=== PATIENT | female | born 1965 | race African-American/Black ===

== ENCOUNTER 2018-06-08 12:22 | Inpatient (IN) ==
[2018-06-08] MEDS ORDERED: NS 1,000 ML IV ONE ×3 (12:40→16:51)
[2018-06-08 13:07] LABS: BE -23.6 mmoll (-3.0-3.0); BLOOD TYPE ARTERIAL; HCO3-(ACT) 6.5 mmoll (20.0-26.0); METHB 1.4 % (0.0-1.5); O2(CT) 21.5 mL/dL (15.0-23.0); PO2(98.6) 132 mmHg (60-100); SAMPLE BLOOD; SAO2 99.3 % (95.0-100.0); THB 15.8 g/dL (11.5-17.4)
[2018-06-08 13:11] LABS: ALLEN TEST YES; MODALITY ROOM AIR
[2018-06-08 13:12] LABS: pH(98.6) 7.08 (7.35-7.45)
[2018-06-08 13:13] LABS: PCO2(98.6) 14 mmHg (35-45)
--- NOTE | 2018-06-08 13:13 | Diag Imaging Result Doc PS360 ---
EXAM: CHEST-PORTABLE HISTORY: syncope TECHNIQUE: Chest single view COMPARISON: 09/02/2015 FINDINGS: The lungs are well expanded. The heart is not enlarged. The vessels are not distended. There are no infiltrates. No effusion identified. There is a granuloma in the mid right lung. IMPRESSION: Negative exam. Electronically signed by Pipo Sheehan 06/08/2018 1:10 PM
[2018-06-08] MEDS ORDERED: HUMULIN R (PARKWAY) IV ONE (13:21)
[2018-06-08 13:43] LABS: BASO# 0.03 X1000 (0.0-0.2); BASO% 0.3 % (0.0-0.8); HEMOGLOBIN 15.5 g/dL (12.0-16.0); IMM GRAN# 0.02 X1000 (0.0-0.04); IMM GRAN% 0.2 % (0.0-0.5); LYMPH# 1.43 X1000 (1.2-3.4); LYMPH% 14.5 % (20.5-51.1); MCH 32.2 PG (27-31); MCHC 33.7 g/dL (33-37); MCV 95.6 FL (81-99); MONO# 0.66 X1000 (0.11-0.59); MONO% 6.7 % (1.7-9.3); MPV 11.3 FL (7.4-10.4); NEUT# 7.75 X1000 (1.4-6.5); NEUT% 78.3 % (42.2-75.2); PLT 355 X1000 (130-400); RBC 4.81 XMIL (4.2-5.4); RDW 18.3 % (11.5-14.5); WBC 9.89 X1000 (4.8-10.8)
[2018-06-08 13:47] LABS: BILIRUBIN URINE NEGATIVE (NEGATIVE); BLOOD URINE TRACE (NEGATIVE); CLARITY CLEAR (CLEAR); COLOR YELLOW; KETONE URINE 3+(Large) mg/dL (NEGATIVE); LEUKOCYTES URINE NEGATIVE (NEGATIVE); NITRITE URINE NEGATIVE (NEGATIVE); PROTEIN URINE 1+(30 mg/dL) mg/dL (NEGATIVE); UROBILINOGEN URINE NORMAL
[2018-06-08 13:53] LABS: INFLUENZA A NEGATIVE (NEGATIVE); INFLUENZA B NEGATIVE (NEGATIVE)
[2018-06-08 14:15] LABS: ESTIMATED GFR 40
[2018-06-08 14:18] LABS: ACETONE SERUM SMALL (NEGATIVE)
[2018-06-08 14:20] LABS: AGAP 39; ALBUMIN 5.3 g/dL (3.5-5.0); ALKALINE PHOSPHATASE 105 U/L (32-104); BUN 23 mg/dL (8-22); CALCIUM 10.7 mg/dL (8.8-10.2); CHLORIDE 91 mmol/L (98-107); COSMO 304; CREATININE 1.4 mg/dL (0.5-0.9); GOT 10 U/L (10-30); GPT 12 U/L (10-36); SODIUM 136 mmol/L (136-145); TCO2 6 mmol/L (25-35); TOTAL PROTEIN 9.2 g/dL (6.3-8.3)
[2018-06-08 14:20] LABS: UR AMPHETAMINES QUAL NONE DETECTED (NONE DETECT); UR BARBITUATES QUAL NONE DETECTED (NONE DETECT); UR BENZODIAZEPIN QUAL NONE DETECTED (NONE DETECT); UR CANNABINOIDS QUAL NONE DETECTED (NONE DETECT); UR COCAINE QUAL NONE DETECTED (NONE DETECT); UR METHADONE QUAL NONE DETECTED (NONE DETECT); UR METHAMPHETAMINE QUAL NONE DETECTED (NONE DETECT); UR OPIATES QUAL NONE DETECTED (NONE DETECT); UR OXYCODONE QUAL NONE DETECTED (NONE DETECT); UR PCP QUAL NONE DETECTED (NONE DETECT); UR PROPOXYPHENE QUAL NONE DETECTED (NONE DETECT); UR TCA QUAL NONE DETECTED (NONE DETECT)
[2018-06-08 14:22] LABS: GLUCOSE 600 mg/dL (70-104); POTASSIUM 6.2 mmol/L (3.5-5.1)
[2018-06-08 14:24] LABS: URINE BACTERIA 1+ /HFP; URINE CAST NONE SEEN /LPF; URINE CRYSTAL NONE SEEN /HPF; URINE EPITHELIAL CELLS <10 /HPF (<10); URINE SOURCE CATH; URINE YEAST NONE SEEN /HPF
[2018-06-08] MEDS ORDERED: HUMULIN R 100 UNIT in NS 99 ML IV ONE (14:45)
[2018-06-08] MEDS ORDERED: NS 1,000 ML ONE (14:58)
[2018-06-08] MEDS ORDERED: MORPHINE IV ONE (14:58)
[2018-06-08] MEDS ORDERED: ZOFRAN IV ONE (14:58)
[2018-06-08] MEDS ORDERED: MORPHINE IV PRN (16:51)
[2018-06-08] MEDS ORDERED: ZOFRAN IV PRN (16:51)
[2018-06-08] MEDS ORDERED: MAGNESIUM SULFATE 2 GM/S.W.I. 2 GM/50 ML IVPB IV PRN (17:08)
[2018-06-08] MEDS ORDERED: HUMULIN R 100 UNIT in NS 99 ML IV SCH (17:08)
[2018-06-08] MEDS ORDERED: POTASSIUM CHLORIDE 10% LIQUID PO PRN (17:08)
[2018-06-08] MEDS ORDERED: D50W SYRINGE IV PRN (17:08)
[2018-06-08] MEDS ORDERED: POTASSIUM CHLORIDE 20% LIQUID PO PRN (17:08)
[2018-06-08] MEDS ORDERED: POTASSIUM CHLORIDE 40 MEQ/SWI 40 MEQ/100 ML IVPB IV PRN (17:08)
[2018-06-08] MEDS ORDERED: SODIUM PHOSPHATE 30 MMOL in D5W 250 ML IV PRN (17:08)
[2018-06-08] MEDS: NS 1,000 ML IV SCH ×2 (17:23→23:37)
[2018-06-08 18:11] LABS: CALCIUM 9.2 mg/dL (8.8-10.2); CREATININE 1.1 mg/dL (0.5-0.9); PHOSPHORUS 1.9 mg/dL (2.7-4.5); POTASSIUM 4.3 mmol/L (3.5-5.1)
[2018-06-08] MEDS: POTASSIUM CHLORIDE 20 MEQ/SWI 20 MEQ/100 ML IVPB IV PRN ×2 (18:22→23:37)
--- NOTE | 2018-06-08 19:36 | HISTORY AND PHYSICAL ---
CHIEF COMPLAINT: Feeling weak all over, with lethargy. HISTORY OF PRESENT ILLNESS: This is a 52-year-old female with a history of diabetes mellitus, asthma and questionable hypothyroid. She presented to the emergency room complaining of generalized weakness, lethargy and she did have a syncopal episode while in triage. She states that she is a type 1 diabetic. She states she takes her insulin as prescribed, although she has not monitored her glucose in quite some time as she has not had any monitoring strips. She was found to have a blood sugar of 600, with a CO2 of 6 and an anion gap of 39. She was acetone positive with a pH of 7.08 consistent with DKA and she is being admitted for such. PAST MEDICAL HISTORY: 1. Type 1 diabetes mellitus. 2. Questionable hypothyroid. 3. Asthma. 4. Back pain. PAST SURGICAL HISTORY: Appendectomy and hysterectomy. SOCIAL HISTORY: She denies alcohol, tobacco or illicit drug use. ALLERGIES: Rocephin which causes shortness of breath and aspirin which causes nausea. HOME MEDICATIONS: A list will be obtained by the nursing staff and once reviewed will restart as appropriate. REVIEW OF SYSTEMS: Discussed with patient with pertinent positives stated in the HPI. She denied any dizziness, any chest pain or palpitations, shortness of breath, cough, any fevers or chills, any night sweats, PND, orthopnea, nausea, vomiting, diarrhea, constipation, black or bloody vomitus or stools, any hematuria, dysuria, frequency, urgency. PHYSICAL EXAMINATION: GENERAL: This is a 52-year-old female who is lying in the bed in ICU in no distress. VITAL SIGNS: Blood pressure is 127/80, with a heart rate of 99, respirations are 15 to 18, temperature was 97.7 oral, with room air sats 98-99%. EYES: Pupils are equal, round, react to light. EOMs are intact. Sclerae are anicteric. HEENT: Head is normocephalic, atraumatic. Mucous membranes are moist. NECK: Supple, with trachea midline. CARDIOVASCULAR: Regular rate and rhythm. S1 and S2 appreciated. She has no lower extremity edema, with peripheral pulses palpable x 4 extremities. PULMONARY: Breath sounds are clear with no increased work of breathing noted. CHEST: Rises and falls symmetric with respiration. Chest wall is nontender to palpation. GASTROINTESTINAL: Abdomen is soft, nontender, nondistended. Bowel sounds in all 4 quadrants. GENITOURINARY: She has no CVAT nor suprapubic tenderness. NEUROLOGIC: She is alert and oriented x3. SKIN: Warm and dry. LABS: WBC is 9.8, with hemoglobin 15.5, hematocrit 46 and platelets of 355,000. ABGs: PH is 7.08 with a pCO2 of 14, PO2 of 132 and a bicarb of 6.5. This Is on room air. Chemistries: Sodium 136, potassium 6.2, CO2 is 6, anion gap is 39, BUN 23, creatinine 1.4, with a blood sugar of 600. Urine drug screen reveals none detected. Acetone level is small. Influenza A and B are negative. Urinalysis reveals 3+ ketones with 3+ glucose. Chest x-ray revealed negative exam. Lungs are well expanded. Heart is not enlarged. Vessels are not distended. There are no infiltrates. No effusion identified. There is a granuloma in the mid right lung. Microbiology: Blood cultures x 2 are pending. ASSESSMENT AND PLAN: 1. Diabetic ketoacidosis. The patient has been admitted to ICU and placed on DKA protocol, which we will continue. We will draw stat labs now, see where the patient is at, as it has been a while since labs were drawn from the emergency room and we will continue under DKA protocol with q.4 hour labs. 2. History of asthma with no exacerbation. 3. Thyroid trouble, possibly hypothyroid. We will check a TSH. 4. For DVT prophylaxis will use SCDs and for GI prophylaxis we will use Prilosec. 5. Since the patient has had no nausea or vomiting, we will start clear liquids, sips of clear liquids and we can advance as tolerated. Further treatments pending hospital course. Dictated by FLAVIA Muhammad for Terell Fierro MD This chart was documented by, FLAVIA Muhammad and accurately reflects the services performed, treatment plan and medical decisions as attested by the providers signature Terell Fierro MD. cc: FLAVIA Muhammad MD
[2018-06-08 22:38] LABS: BASO# 0.03 X1000 (0.0-0.2); BASO% 0.3 % (0.0-0.8); HEMATOCRIT 43.1 % (37.0-47.0); HEMOGLOBIN 14.4 g/dL (12.0-16.0); IMM GRAN# 0.02 X1000 (0.0-0.04); IMM GRAN% 0.2 % (0.0-0.5); LYMPH# 1.34 X1000 (1.2-3.4); LYMPH% 14.9 % (20.5-51.1); MCH 33.2 PG (27-31); MCHC 33.4 g/dL (33-37); MCV 99.3 FL (81-99); MONO# 0.78 X1000 (0.11-0.59); MONO% 8.7 % (1.7-9.3); MPV 9.9 FL (7.4-10.4); NEUT# 6.83 X1000 (1.4-6.5); NEUT% 75.9 % (42.2-75.2); PLT 257 X1000 (130-400); RBC 4.34 XMIL (4.2-5.4)
[2018-06-08 23:08] LABS: ALBUMIN 3.9 g/dL (3.5-5.0); CALCIUM 9.1 mg/dL (8.8-10.2); PHOSPHORUS 1.8 mg/dL (2.7-4.5); TOTAL BILIRUBIN 0.3 mg/dL (0.20-1.00); TOTAL PROTEIN 7.1 g/dL (6.3-8.3)
--- NOTE | 2018-06-08 23:45 | HISTORY AND PHYSICAL ---
ADDENDUM: The patient seen and examined by myself. Full note dictated and discussed with nurse practitioner. Patient presented to the hospital, was subsequently diagnosed with DKA. We will place her in the ICU on DKA protocol, and will follow. Please see full note. cc: Terell Fierro MD
[2018-06-09] MEDS: HUMALOG (PARKWAY) SUBQ SCH ×5 (02:25→21:28)
[2018-06-09] MEDS: NS 1,000 ML IV SCH ×3 (02:25→19:19)
[2018-06-09 02:30] LABS: CALCIUM 9.4 mg/dL (8.8-10.2); PHOSPHORUS 1.6 mg/dL (2.7-4.5); POTASSIUM 4.6 mmol/L (3.5-5.1)
[2018-06-09] MEDS: POTASSIUM CHLORIDE 20 MEQ/SWI 20 MEQ/100 ML IVPB IV PRN ×2 (02:30→07:25)
[2018-06-09] MEDS: D5 NS 1,000 ML IV SCH ×2 (02:30→11:00)
[2018-06-09 05:09] LABS: BE -13.6 mmoll (-3.0-3.0); BLOOD TYPE ARTERIAL; HCO3-(ACT) 14.3 mmoll (20.0-26.0); METHB 1.4 % (0.0-1.5); O2(CT) 16.9 mL/dL (15.0-23.0); PCO2(98.6) 33 mmHg (35-45); PO2(98.6) 99 mmHg (60-100); SAMPLE BLOOD; SAO2 99.6 % (95.0-100.0); THB 12.4 g/dL (11.5-17.4); pH(98.6) 7.21 (7.35-7.45)
[2018-06-09 05:11] LABS: ALLEN TEST NO; MODALITY ROOM AIR
[2018-06-09] MEDS: PRILOSEC PO SCH (06:53)
[2018-06-09 06:56] LABS: BASO# 0.02 X1000 (0.0-0.2); BASO% 0.2 % (0.0-0.8); HEMATOCRIT 36.9 % (37.0-47.0); HEMOGLOBIN 12.2 g/dL (12.0-16.0); IMM GRAN# 0.02 X1000 (0.0-0.04); IMM GRAN% 0.2 % (0.0-0.5); LYMPH# 1.65 X1000 (1.2-3.4); LYMPH% 15.8 % (20.5-51.1); MCH 31.9 PG (27-31); MCHC 33.1 g/dL (33-37); MCV 96.3 FL (81-99); MONO# 1.19 X1000 (0.11-0.59); MONO% 11.4 % (1.7-9.3); MPV 9.9 FL (7.4-10.4); NEUT# 7.56 X1000 (1.4-6.5); NEUT% 72.4 % (42.2-75.2); PLT 268 X1000 (130-400); RBC 3.83 XMIL (4.2-5.4); RDW 15.8 % (11.5-14.5); WBC 10.44 X1000 (4.8-10.8)
[2018-06-09 07:16] LABS: AGAP 17; ALBUMIN 3.6 g/dL (3.5-5.0); ALKALINE PHOSPHATASE 64 U/L (32-104); BUN 18 mg/dL (8-22); CALCIUM 9.3 mg/dL (8.8-10.2); CHLORIDE 112 mmol/L (98-107); COSMO 297; CREATININE 0.9 mg/dL (0.5-0.9); ESTIMATED GFR > 60; GLUCOSE 250 mg/dL (70-104); GOT 8 U/L (10-30); GPT 7 U/L (10-36); MAGNESIUM 2.1 mg/dL (1.5-2.7); PHOSPHORUS 1.5 mg/dL (2.7-4.5); POTASSIUM 4.8 mmol/L (3.5-5.1); SODIUM 144 mmol/L (136-145); TCO2 15 mmol/L (25-35); TOTAL PROTEIN 6.6 g/dL (6.3-8.3)
[2018-06-09] MEDS ORDERED: NS 1,000 ML IV SCH (13:15)
[2018-06-09] MEDS ORDERED: INSULIN PEN NEEDLES ONE (21:26)
[2018-06-09] MEDS: BASAGLAR SUBQ SCH (21:29)
[2018-06-09 21:33] LABS: HEMOGLOBIN A1C 14.1 % (4.8-6.0)
--- NOTE | 2018-06-10 00:20 | PROGRESS NOTE ---
DATE: 06/09/2018 SUBJECTIVE: Patient notes she is not feeling great. Denies any chest pains. Denies fevers. Patient is very difficult to get to answer questions. PHYSICAL EXAM: Vital signs: Temperature 98.4, pulse 82, respiratory 16, BP 160/85. General: Patient is awake, alert. She appears in no respiratory distress. The staff notes that she is actually starting to eat a little bit better. When she is able to answer questions, patient states her abdominal pain is improved. HEENT: Normocephalic. Neck: Supple. CARDIOVASCULAR: Regular rate. No murmurs. Chest: Clear, nonlabored. Abdomen: Soft. Positive bowel sounds. Nondistended. Extremities: Moves all extremities. Neurologic: No changes. ASSESSMENT: 1. Diabetic ketoacidosis, appears resolved. We will attempt to stop her insulin drip, place her on Lantus. Continue sliding scale insulin and advance her diet. 2. Asthma. 3. Hypothyroidism. PLAN: As noted above. Hopefully, she will tolerate stopping her insulin drip and will follow. Hopefully, home over the next 1 or 2 days. cc: Terell Fierro MD
[2018-06-10] MEDS ORDERED: CALMOSEPTINE OINTMENT TOP PRN (03:41)
[2018-06-10] MEDS: NS 1,000 ML IV SCH ×2 (05:45→16:37)
[2018-06-10 06:06] LABS: HEMATOCRIT 32.3 % (37.0-47.0); HEMOGLOBIN 10.7 g/dL (12.0-16.0); MCH 31.8 PG (27-31); MCHC 33.1 g/dL (33-37); MCV 96.1 FL (81-99); MPV 9.7 FL (7.4-10.4); RBC 3.36 XMIL (4.2-5.4); RDW 16.4 % (11.5-14.5); WBC 6.42 X1000 (4.8-10.8)
[2018-06-10 06:26] LABS: AGAP 10; BUN 12 mg/dL (8-22); CALCIUM 8.5 mg/dL (8.8-10.2); CHLORIDE 108 mmol/L (98-107); COSMO 284; CREATININE 0.6 mg/dL (0.5-0.9); ESTIMATED GFR > 60; GLUCOSE 219 mg/dL (70-104); PHOSPHORUS 1.6 mg/dL (2.7-4.5); POTASSIUM 3.7 mmol/L (3.5-5.1); SODIUM 139 mmol/L (136-145); TCO2 21 mmol/L (25-35)
[2018-06-10] MEDS: PRILOSEC PO SCH (07:07)
[2018-06-10] MEDS: HUMALOG (PARKWAY) SUBQ SCH ×4 (07:07→20:50)
[2018-06-10] MEDS: REGLAN IV SCH ×3 (11:37→23:09)
[2018-06-10] MEDS: BASAGLAR SUBQ SCH (20:50)
--- NOTE | 2018-06-10 23:03 | PROGRESS NOTE ---
DATE: 06/10/2018 SUBJECTIVE: The patient states she is still having abdominal pain, nausea. Not eating well. PHYSICAL EXAMINATION: Vital signs: Temperature 98.4 degrees, pulse 92, respiratory rate 98, blood pressure 99/60 to 162/85. General: The patient is a frail-appearing female who currently is in no respiratory distress. HEENT: Normocephalic. Neck: Supple. CARDIOVASCULAR: Regular rate. Chest: Clear. Abdomen: Soft. Diffusely tender. Extremities: Moves all extremities. ASSESSMENT: 1. Diabetes with a very poor home control and an A1c of 14. 2. Presumed diabetic gastroparesis, secondary to poorly controlled diabetes. 3. Mild acidosis, improved. Her diabetic ketoacidosis has resolved. 4. Hypothyroidism. PLAN: We will continue the patient in the hospital. We will transfer her from the ICU to the floor. Place her on IV Reglan. Continue to attempt to control her blood sugars. Further orders as needed. cc: Terell Fierro MD
[2018-06-11] MEDS: NS 1,000 ML IV SCH ×3 (01:43→09:41)
[2018-06-11] MEDS: PRILOSEC PO SCH (06:08)
[2018-06-11] MEDS: REGLAN IV SCH ×5 (06:08→17:29)
[2018-06-11] MEDS: HUMALOG (PARKWAY) SUBQ SCH ×5 (06:13→22:10)
[2018-06-11 07:29] LABS: HEMATOCRIT 33.2 % (37.0-47.0); HEMOGLOBIN 10.8 g/dL (12.0-16.0); MCH 31.6 PG (27-31); MCHC 32.5 g/dL (33-37); MCV 97.1 FL (81-99); MPV 9.3 FL (7.4-10.4); RBC 3.42 XMIL (4.2-5.4); RDW 16.7 % (11.5-14.5); WBC 5.53 X1000 (4.8-10.8)
[2018-06-11 07:56] LABS: AGAP 11; BUN 13 mg/dL (8-22); CALCIUM 8.6 mg/dL (8.8-10.2); CHLORIDE 110 mmol/L (98-107); COSMO 298; CREATININE 0.6 mg/dL (0.5-0.9); ESTIMATED GFR > 60; GLUCOSE 367 mg/dL (70-104); POTASSIUM 3.4 mmol/L (3.5-5.1); SODIUM 142 mmol/L (136-145); TCO2 21 mmol/L (25-35)
--- NOTE | 2018-06-11 15:55 | PROVIDER DOCUMENTATION ---
This chart was entered by Eryn Barnard Scribe, acting as scribe for Sudhir Rees MD. HPI-General Adult - General Chief Complaint: High Blood Sugar Stated Complaint: WEAKNESS Time Seen by Provider: 06/08/18 12:34 Source: patient, family Allergies/Adverse Reactions: Patient Allergies Allergy/AdvReac Type Severity Reaction Status Date / Time ceftriaxone sodium * Allergy SHORTNESS Verified 04/07/18 12:47 [From Rocephin] OF BREATH aspirin AdvReac NAUSEA Verified 04/07/18 12:47 Home Medications: Home Medication List Medication Instructions Recorded Confirmed Last Taken Type Cetirizine HCl [Zyrtec] 10 mg PO DAILY 10/31/13 02/08/18 12/22/14 08:00 History Montelukast [Singulair] 10 mg PO BID 10/31/13 02/08/18 12/22/14 08:00 History Fluticasone 50 Mcg Nasal [place] 1 spray AKIRA DAILY #1 bottle 01/11/14 02/08/1807/03 08:00 Rx [Flonase] Albuterol Sulfate [Albuterol 1 - 2 puff IH 3-4XDAY PRN PRN #1 04/18/14 02/08/18 12/22/14 08:00 Rx Sulfate Hfa] [email or web address] Methocarbamol [Robaxin-750] 750 mg PO TID PRN PRN #30 tablet 04/18/14 02/08/18 12/22/14 08:00 Rx Insulin Regular, Human [Novolin R] 100 unit IJ DIRECTED #1 vial 11/01/17 Unknown Rx Polyethylene Glycol 3350 [Miralax] 17 gm PO DAILY PRN PRN #1 powd.pack 11/01/17 02/08/18 Unknown Rx Insulin Degludec [Tresiba 50 units SQ DAILY 02/08/18 02/08/18 Unknown History Flextouch U-100] Cholecalciferol (Vit D3) [Vitamin 2,000 unit PO DAILY #120 tab 02/11/18 Unknown Rx D3] Lactulose 20 gm PO BID #1 l 02/11/18 Unknown Rx Semaglutide [Ozempic] mg SQ DIRECTED 04/07/18 Unknown History Sulfamethoxazole/Trimethoprim 1 ea PO BID #10 tab 04/10/18 Unknown Rx [Bactrim Ds Tablet] - History of Present Illness -Gen Adult Nature of Presenting Problems: Pt presents to the ED via the waiting room. Pt is lethargic, weak and it is reported that she is a Type I diabetic. Reports that she takes her insulin daily but that she does not have any glucose monitoring strips so she cannot tell what her level is. Pt has a syncopal episode in triage. Location of Pain/Injury: reports: none Pain Radiation: reports: no radiation Quality of Pain: reports: none Severity: reports: severe Onset/Duration: reports: just prior to arrival Timing: reports: still present Context/Activities at Onset: reports: none Modifying Factors: improves with: nothing Associated Symptoms: reports: fatigue, weakness Similar Symptoms Previously?: Yes Recently seen or treated by another doctor?: No - Diabetes Related Context Context: reports: high blood sugar (500 in ED) Review of Systems - Adult - REVIEW OF SYSTEMS - ADULT Constitutional: reports: other (weak). denies: chills, fever Eyes: reports: no symptoms reported Ears, Nose, Mouth & Throat: reports: no symptoms reported Cardiovascular: reports: no symptoms reported. denies: chest pain Respiratory: reports: no symptoms reported. denies: chronic cough, cough Gastrointestinal: reports: no symptoms reported. denies: abdominal pain Genitourinary: reports: no symptoms reported Musculoskeletal: reports: no symptoms reported Integumentary: reports: no symptoms reported Neurological: reports: no symptoms reported. denies: slurred speech Psychiatric: reports: no symptoms reported Endocrine: reports: no symptoms reported Hematologic/Lymphatic: reports: no symptoms reported Allergic/Immunologic: reports: no symptoms reported All Other Systems: Reviewed and Negative Past History - Adult - PAST MEDICAL HISTORY-ADULT Review of Records: reports: Old Records Reviewed, Nursing Assessment Review, Medications Reviewed, Social history reviewed & non-contributory. Major Childhood Illnesses: reports: denies history Cardiovascular: reports: denies history Respiratory: reports: asthma Gastrointestinal: reports: denies history Obstetrical/Gynecological: reports: denies history Genitourinary: reports: denies history Musculoskeletal: reports: chronic pain (back), neck/back injury Neurological: reports: headaches/migraines Endocrine/Immune: reports: Diabetes Other Conditions: reports: denies history, MRSA - PRIOR SURGERIES/PROCEDURES Surgical/Procedure History: reports: appendectomy, hysterectomy, BTL - IMMUNIZATION STATUS Childhood Immunizations: See Nurse Assessment Flu Vaccine: See Nurse Assessment - FAMILY HISTORY Family History: reviewed, not pertinent - SOCIAL HISTORY Smoking: denies, non-smoker Substance Use: none/never Alcohol Use Frequency: never Living Situation: family Physical Exam-General - PHYSICAL EXAM-ADULT Initial Vital Signs Reviewed: Yes - CONSTITUTIONAL General Appearance: moderate distress, thin, lethargic, other (pt is very weak, falling over while nurses try to help get her into gown. pt has noted fruity smell) - EYES Eyes: PERRL/EOMI - HEAD, EARS, NOSE, MOUTH & THROAT HENMT: normocephalic/atraumatic, other (dry) - NECK Neck: full range of motion, supple - RESPIRATORY Respiratory: lungs clear, normal breath sounds, accessory muscle use, other ( tachypnea). negative: wheezing - CARDIOVASCULAR Cardiovascular: regular rate, rhythm, no edema, no gallop, no JVD, no murmur, tachycardia - GASTROINTESTINAL (ABDOMEN) Abdominal Exam: non tender, soft, no organomegaly - MUSCULOSKELETAL Back Exam: normal inspection, no CVA tenderness, no vertebral tenderness Extremity: normal range of motion, non-tender - SKIN Integumentary: normal color, normal turgor, warm/dry - NEUROLOGIC Neurologic: brokerage clerk II-XII nml as tested, grossly normal, no motor/sensory deficits - PSYCHIATRIC Psych/Mental Status: oriented x 3, anxious Progress - PLAN OF CARE/RESULTS Progress/Plan/Lab Results: Vital Signs - 8 hr 06/08/18 12:30 Temperature 97.7 F Pulse Rate 112 H Respiratory Rate 24 Blood Pressure 136/87 O2 Sat by Pulse Oximetry 98 Laboratory Results - last 24 hr 06/08/18 12:33 POC Glucose 500 H Orders Category Date Time Status Cardiac Monitoring DIRECTED Care 06/08/18 12:36 Active Saline Loc NOW Care 06/08/18 12:36 Active CHEST-PORTABLE [RAD] Stat Exams 06/08/18 12:40 Ordered ABG [RESP] Routine Lab 06/08/18 12:37 Ordered ACETONE SERUM [CHEM] Stat Lab 06/08/18 12:37 Ordered AMMONIA [CHEM] Stat Lab 06/08/18 12:37 Uncollected BLOOD CULTURE [BLDCUL] Stat Lab 06/08/18 12:37 Ordered CBC WITH ELECTRONIC DIFF [HEME] Stat Lab 06/08/18 12:37 Uncollected COMPREHENSIVE METABOLIC PANEL [CHEM] Stat Lab 06/08/18 12:[address] Stat Lab 06/08/18 12:37 Uncollected TROPONIN T Stat Lab 06/08/18 12:[address] W/POSS RFLX CULT [URINALYSIS] Stat Lab 06/08/18 12:40 Uncollected URINE DRUG SCREEN PL Stat Lab 06/08/18 12:40 Uncollected 0.9% Sodium Chloride Inj [Ns] 1,000 ml Med 06/08/18 12:40 Active IV 999 mls/hr EKG [EKG] Stat Ther 06/08/18 12:36 Ordered Result Diagrams: 06/11/18 07:08 06/11/18 07:08 - REASSESSMENT Reassessment #1 Time Reassessed: 14:13 Status: improving (looks much better w/ initial iv hydration, u/a clear, flu neg glu>500, LA 2.9, pH 7.08) - XRAY 1 XRAY Study: Chest Impression: Normal, See EMR Report Comparison with other Films: no changes - CONSULTS/PCP/HOSPITALIST Notification #1 *Consult/PCP/Hospitalist*: DR MEJÍA Time Discussed: 14:15 Consult Disposition: Admit (ICU, insulin gtt) Departure - Departure Date of Disposition Decision: 06/08/18 Time of Disposition Decision: 14:15 DIAGNOSIS: DKA (diabetic ketoacidoses) Disposition: ADMITTED INPATIENT 09 Certified Medical Emergency: Emergent Condition: Fair - Critical Care Note This patient required my direct & personal management of CC.: Yes Total Time (mins): 37 Critical Care Statement: This patient required my direct personal management to treat or rule out processes, the absence of which, could potentiallly result in sudden, clinically significant life or limb threatening deterioration. Attestation - Physician/ SHAW Attestation Patient care was provided by Advanced Practice Provider:: No The physician spent face to face time with patient:: Yes Advanced Practice Provider documentation review:: Supervising physician onsite and consulted in the evaluation and care of this patient. The physician did have a face to face encounter with the patient. This chart was documented by the indicated scribe, (Barnard,Eryn L., Scribe) and accurately reflects the services I performed and decisions made by me, Sudhir Rees MD, as attested by the provider's signature.
[2018-06-11] MEDS: BASAGLAR SUBQ SCH (22:10)
--- NOTE | 2018-06-11 23:30 | PROGRESS NOTE ---
DATE: 06/11/2018 INCOMPLETE REPORT - DICTATION STARTS HERE SUBJECTIVE: Patient notes that overall she is actually feeling a little bit better. She has had chronic diarrhea off and on for the last year or so. Denies any chest pain, palpitations. Denies any fevers. States that her shortness of breath has improved. PHYSICAL EXAM: Vital signs: Temperature 97.9 degrees, pulse 92, respiratory 22, BP 103/71. General: Patient is awake, alert, currently in no distress. Very pleasant to talk with. She is still ill-appearing, although much improved. HEENT: Normocephalic. Neck: Supple. CARDIOVASCULAR: Regular rate. No murmurs. Chest: Clear, nonlabored. Abdomen: Soft, nondistended. Extremities: Moves all extremities. ASSESSMENT: Incomplete, Dictation ends here. cc: Terell Fierro MD
[2018-06-12] MEDS: NS 1,000 ML IV SCH ×2 (00:23→13:41)
[2018-06-12] MEDS: REGLAN IV SCH ×5 (00:24→23:25)
--- NOTE | 2018-06-12 00:33 | PROGRESS NOTE ---
DATE: 06/11/2018 SUBJECTIVE: Patient notes she is still having lots of abdominal pain, nausea, occasional vomiting. Denies any diarrhea. Denies fevers or chills. States she is still not really drinking or eating. PHYSICAL EXAMINATION: Vital Signs: Temperature 97.9 degrees, pulse 92, respiratory 20, BP 103/71. General: Patient is awake, alert. Currently she is in no respiratory distress but she is still a somewhat ill-appearing female who is lying in the bed. HEENT: Normocephalic. Neck: Supple. Cardiovascular: Regular rate. Chest: Clear and unlabored. Abdomen: Soft. Diffusely but minimally tender. Scaphoid. No hepatosplenomegaly. Extremities: Moves all extremities. No edema. Neurologic: No focal neurological changes. Skin: Warm, dry. No rashes. ASSESSMENT: 1. Diabetes, type 1. 2. Presumed gastroparesis. 3. Diabetic ketoacidosis, resolved. 4. Metabolic acidosis, improved. PLAN: We will continue IV Reglan. Continue to advance diet as tolerated. Continue treatment of her hyperglycemia and we will follow. cc: Terell Fierro MD
[2018-06-12] MEDS: PRILOSEC PO SCH ×2 (05:39→06:02)
[2018-06-12] MEDS: HUMALOG (PARKWAY) SUBQ SCH ×4 (06:38→21:05)
[2018-06-12] MEDS: BASAGLAR SUBQ SCH (21:09)
--- NOTE | 2018-06-13 00:59 | PROGRESS NOTE ---
DATE: 06/12/2018 SUBJECTIVE: Patient states she is still having abdominal pain. Notes she has not really been able to eat or drink anything. Denies any fevers or chills. Denies hematuria, hematochezia. PHYSICAL EXAMINATION: Vital Signs: Temperature 98.2 degrees, pulse 81, respiratory 20, BP 99/66. General: Patient is awake. She is in no current distress. HEENT: Normocephalic. Neck: Supple. Cardiovascular: Regular rate. No murmurs. Chest: Clear and unlabored. Abdomen: Soft. Diffusely tender more so in the epigastric region. Extremities: Moves all extremities. Neurologic: No changes. ASSESSMENT: 1. Diabetes with likely gastroparesis. 2. Diabetic ketoacidosis. 3. Asthma. 4. Adult failure to thrive. PLAN: We will continue to increase her diabetic control. Her A1c as noted was 14. She does appear to have diabetic gastroparesis. We will continue to follow and home once her symptoms improve. cc: Terell Fierro MD
[2018-06-13] MEDS: NS 1,000 ML IV SCH ×2 (01:30→20:12)
[2018-06-13] MEDS: BASAGLAR SUBQ SCH ×2 (06:01→21:53)
[2018-06-13] MEDS: PRILOSEC PO SCH (06:06)
[2018-06-13] MEDS: REGLAN IV SCH ×3 (06:06→18:16)
[2018-06-13] MEDS: HUMALOG (PARKWAY) SUBQ SCH ×4 (06:06→21:53)
[2018-06-13] MEDS ORDERED: NS 1,000 ML IV SCH (12:45)
[2018-06-13] MEDS ORDERED: LASIX PO ONE (16:10)
--- NOTE | 2018-06-13 17:40 | PROGRESS NOTE ---
DATE: 06/13/2018 SUBJECTIVE: Patient is still having intense abdominal pain, nausea. No real vomiting. Denies diarrhea, constipation or melena. PHYSICAL EXAMINATION: Vital Signs: Temperature 98, pulse 91, respiratory rate 20, BP 109/74. General: Patient is awake, alert, currently in no distress, still somewhat ill-appearing. HEENT: Normocephalic. Neck: Supple. CARDIOVASCULAR: Regular rate. Chest: Clear, nonlabored. Abdomen: Soft. Extremities: Moves all extremities. Neurologic: No changes. ASSESSMENT: 1. Diabetes with very poor home control. Blood sugars have still been elevated in the hospital. We are continuing to elevate her Lantus. We will increase to 10 units twice daily. 2. Diabetic gastroparesis. 3. Others. PLAN: Continue IV fluids, pain control. We will continue to attempt blood sugar control. She has been on IV Reglan for the last few days and will follow. cc: Terell Fierro MD
[2018-06-14] MEDS: REGLAN IV SCH ×4 (01:16→18:33)
[2018-06-14] MEDS: PRILOSEC PO SCH (06:15)
[2018-06-14] MEDS: HUMALOG (PARKWAY) SUBQ SCH ×4 (06:16→21:13)
[2018-06-14 07:03] LABS: BASO# 0.01 X1000 (0.0-0.2); BASO% 0.2 % (0.0-0.8); EOS% 2.3 % (0.0-10.0); HEMATOCRIT 30.4 % (37.0-47.0); HEMOGLOBIN 9.9 g/dL (12.0-16.0); LYMPH# 1.56 X1000 (1.2-3.4); LYMPH% 36.6 % (20.5-51.1); MCH 31.7 PG (27-31); MCHC 32.6 g/dL (33-37); MCV 97.4 FL (81-99); MONO# 0.39 X1000 (0.11-0.59); MONO% 9.2 % (1.7-9.3); MPV 10.4 FL (7.4-10.4); NEUT% 51.7 % (42.2-75.2); PLT 145 X1000 (130-400); RBC 3.12 XMIL (4.2-5.4); RDW 16.4 % (11.5-14.5); WBC 4.26 X1000 (4.8-10.8)
[2018-06-14 07:26] LABS: AGAP 10; ALBUMIN 2.8 g/dL (3.5-5.0); ALKALINE PHOSPHATASE 71 U/L (32-104); BUN 8 mg/dL (8-22); CALCIUM 8.4 mg/dL (8.8-10.2); CHLORIDE 105 mmol/L (98-107); COSMO 285; CREATININE 0.5 mg/dL (0.5-0.9); ESTIMATED GFR > 60; GLUCOSE 167 mg/dL (70-104); GOT 21 U/L (10-30); GPT 14 U/L (10-36); POTASSIUM 3.3 mmol/L (3.5-5.1); SODIUM 142 mmol/L (136-145); TCO2 27 mmol/L (25-35); TOTAL PROTEIN 5.3 g/dL (6.3-8.3)
[2018-06-14] MEDS: BASAGLAR SUBQ SCH ×2 (09:10→21:13)
--- NOTE | 2018-06-14 17:49 | PROGRESS NOTE ---
DATE: 06/14/2018 SUBJECTIVE: Patient notes that she actually started drinking some last night, was able to keep it down. She denies any current fevers or chills, denies any hematemesis, hematochezia, melena. PHYSICAL: Temperature 98.2, pulse 81, respiratory 22, BP 95/66.General: Patient is awake, she is in no current distress, she is sitting in bed, she appears to be feeling better. HEENT: Normocephalic. Neck: Supple. CV: Regular rate. Chest: Clear nonlabored. Abdomen: Soft, nondistended, no masses. Extremities: Moves all extremities. Neuro: No focal changes. ASSESSMENT: 1. Diabetes with gastroparesis. She has been on IV Reglan for the past few days. 2. Diabetes with very poor home control with an A1c of 14. Her blood sugars most recently have actually improved down to 168. Hopefully the additional increase in her Lantus will be effective. Do not feel as though her symptoms will improve until her blood sugars improve. 3. Elevated serum creatinine. 4. Hypothyroidism. 5. History of asthma without exacerbation. PLAN: As noted we had recently increased her Lantus last night. We will continue the increased dose today and follow her blood sugars. Hopefully they will continue to improve , her nausea seems better this morning. If it continues to improve hopefully she can discharge home tomorrow. cc: Terell Fierro MD MTDD
[2018-06-14] MEDS ORDERED: TYLENOL PO PRN (18:46)
[2018-06-14] MEDS ORDERED: ZOFRAN IV PRN (18:46)
[2018-06-15] MEDS: REGLAN IV SCH ×4 (02:43→17:57)
[2018-06-15] MEDS: PRILOSEC PO SCH (06:02)
[2018-06-15] MEDS: HUMALOG (PARKWAY) SUBQ SCH ×5 (06:29→21:43)
[2018-06-15] MEDS ORDERED: INSULIN PEN NEEDLES MISC PRN (06:48)
[2018-06-15] MEDS: BASAGLAR SUBQ SCH ×2 (09:29→22:42)
[2018-06-15] MEDS ORDERED: NS 1,000 ML IV ONE (23:56)
[2018-06-16] MEDS: REGLAN IV SCH ×4 (02:30→18:57)
--- NOTE | 2018-06-16 05:54 | PROGRESS NOTE ---
DATE: 06/15/2018 SUBJECTIVE: Patient has no complaints. Still has some intermittent nausea and vomiting. OBJECTIVE: Vital Signs: Blood pressure 109/71, heart rate 98, respiratory rate 16, temperature 98.6 degrees, 100% on room air. Cardiovascular: Regular rate and rhythm. Pulmonary: Bilateral breath sounds. Clear to auscultation. GI: Abdomen is soft, nontender, nondistended. Bowel sounds are positive. Extremity Exam: No clubbing or cyanosis. Lymphatic Exam: No peripheral edema. Neurological: Nonfocal. PROBLEM LIST: 1. Intractable nausea and vomiting. We will pursue a gastric emptying study tomorrow because she is diabetic. We will continue proton pump inhibitor and consider addition of Reglan if needed. 2. Diabetes, not completely controlled. We will continue to follow, but overall poor control. Encourage compliance and follow. 3. Hypothyroidism, appears to be stable on current medications. 4. Asthma exacerbation, also appears controlled. DISPOSITION: Anticipate discharge tomorrow if stable. cc: Roe Olivo MD
[2018-06-16] MEDS: HUMALOG (PARKWAY) SUBQ SCH ×3 (06:13→18:15)
[2018-06-16] MEDS: PRILOSEC PO SCH (06:13)
[2018-06-16 07:07] LABS: BASO# 0.01 X1000 (0.0-0.2); BASO% 0.2 % (0.0-0.8); EOS# 0.11 X1000 (0.0-0.7); EOS% 2.4 % (0.0-10.0); HEMATOCRIT 30.2 % (37.0-47.0); HEMOGLOBIN 9.7 g/dL (12.0-16.0); LYMPH# 1.52 X1000 (1.2-3.4); LYMPH% 33.6 % (20.5-51.1); MCH 32.1 PG (27-31); MCHC 32.1 g/dL (33-37); MONO# 0.46 X1000 (0.11-0.59); MONO% 10.2 % (1.7-9.3); MPV 9.9 FL (7.4-10.4); NEUT# 2.43 X1000 (1.4-6.5); NEUT% 53.6 % (42.2-75.2); PLT 165 X1000 (130-400); RBC 3.02 XMIL (4.2-5.4); RDW 16.6 % (11.5-14.5); WBC 4.53 X1000 (4.8-10.8)
[2018-06-16 07:24] LABS: AGAP 8; BUN 13 mg/dL (8-22); CALCIUM 8.3 mg/dL (8.8-10.2); CHLORIDE 106 mmol/L (98-107); COSMO 288; CREATININE 0.5 mg/dL (0.5-0.9); ESTIMATED GFR > 60; GLUCOSE 144 mg/dL (70-104); POTASSIUM 3.9 mmol/L (3.5-5.1); SODIUM 143 mmol/L (136-145); TCO2 30 mmol/L (25-35)
[2018-06-16] MEDS: BASAGLAR SUBQ SCH (17:53)
--- NOTE | 2018-06-16 17:57 | Diag Imaging Result Doc PS360 ---
EXAM: GASTRIC EMPTYING HISTORY: n/v TECHNIQUE: Nuclear medicine gastric emptying exam COMPARISON: None. FINDINGS: 660 uCi technetium sulfur colloid taken with scrambled egg. Imaging for two hours obtained. The T1/2 is calculated to be one hour and 21 minutes. This is in the normal range. IMPRESSION: Normal gastric emptying. Electronically signed by Pipo Sheehan 06/16/2018 5:54 PM
--- NOTE | 2018-06-16 18:13 | PROGRESS NOTE ---
DATE: 06/16/2018 SUBJECTIVE: Patient has no major complaints. OBJECTIVE: Vital Signs: Blood pressure is 118/82, heart rate of 71, respiratory rate 18, temperature 98.2. Cardiovascular: Regular rate and rhythm. Pulmonary: Bilateral breath sounds. Clear to auscultation. GI: Soft, nontender, nondistended. Bowel sounds are positive. LABS: White count 4.5, hemoglobin and hematocrit 9 and 30, MCV 100, platelets 165. Basic was normal. PROBLEM LIST: 1. Nausea, vomiting, which I think is slowly improving somewhat. We will continue to follow closely. Anticipate discharge soon. She is already on Reglan. Just waiting on treatment for that. We will continue to follow. 2. Type 2 diabetes. Sugars are doing okay. Will continue regular medications. She has not been eating much today, so it is hard to use this as an accurate measure. 3. Hypothyroidism. Stable on current medications. 4. Asthma. Is also controlled. DISPOSITION: She is tolerating p.o. I think she could probably go home, hopefully soon. cc: Roe Olivo MD
[2018-06-16 18:50] LABS: AGAP 11; ALBUMIN 3.5 g/dL (3.5-5.0); ALKALINE PHOSPHATASE 86 U/L (32-104); BUN 10 mg/dL (8-22); CALCIUM 9.2 mg/dL (8.8-10.2); CHLORIDE 99 mmol/L (98-107); COSMO 280; CREATININE 0.5 mg/dL (0.5-0.9); ESTIMATED GFR > 60; GLUCOSE 129 mg/dL (70-104); GOT 36 U/L (10-30); GPT 28 U/L (10-36); POTASSIUM 3.3 mmol/L (3.5-5.1); SODIUM 140 mmol/L (136-145); TCO2 30 mmol/L (25-35); TOTAL PROTEIN 6.5 g/dL (6.3-8.3)
[2018-06-17] MEDS: REGLAN IV SCH ×3 (01:28→13:13)
[2018-06-17] MEDS: HUMALOG (PARKWAY) SUBQ SCH ×3 (06:26→12:17)
[2018-06-17] MEDS: PRILOSEC PO SCH (06:28)
[2018-06-17] MEDS: BASAGLAR SUBQ SCH ×2 (06:28→09:59)
[2018-06-17 07:26] LABS: BASO# 0.01 X1000 (0.0-0.2); BASO% 0.3 % (0.0-0.8); EOS# 0.07 X1000 (0.0-0.7); EOS% 1.8 % (0.0-10.0); HEMATOCRIT 29.8 % (37.0-47.0); HEMOGLOBIN 9.5 g/dL (12.0-16.0); IMM GRAN# 0.01 X1000 (0.0-0.04); IMM GRAN% 0.3 % (0.0-0.5); LYMPH# 1.34 X1000 (1.2-3.4); LYMPH% 33.7 % (20.5-51.1); MCH 32.3 PG (27-31); MCHC 31.9 g/dL (33-37); MCV 101.4 FL (81-99); MONO# 0.39 X1000 (0.11-0.59); MONO% 9.8 % (1.7-9.3); MPV 9.8 FL (7.4-10.4); NEUT# 2.16 X1000 (1.4-6.5); NEUT% 54.1 % (42.2-75.2); PLT 198 X1000 (130-400); RBC 2.94 XMIL (4.2-5.4); RDW 16.4 % (11.5-14.5); WBC 3.98 X1000 (4.8-10.8)
[2018-06-17 08:13] VITALS: BP 111/77
[2018-06-17] MEDS ORDERED: FLONASE NAS PRN (10:11)
[2018-06-17] MEDS ORDERED: MIRALAX PO PRN (10:11)
[2018-06-17] MEDS ORDERED: ROBAXIN PO PRN (10:11)
[2018-06-17] MEDS ORDERED: GLUCOPHAGE PO SCH (17:00)
--- NOTE | 2018-06-18 00:58 | PROGRESS NOTE ---
DATE: 06/17/2018 SUBJECTIVE: Patient is tolerating p.o. without difficulty. Blood sugars are overall controlled. Her gastric emptying study was really unremarkable. However, she has been on Reglan this whole time. In any case, I think she is stable for discharge today. I have not made any large adjustments in her medications. We will give her Zofran. I am not going to commit her to Reglan at this point because we do not have documented gastroparesis. If she has persistent GI issues, may need to re-evaluate her off of Reglan. We will refer her to GI for evaluation. Continue regular medications. A [id number] encounter note with Pinky Hawkins. cc: Roe Olivo MD
[2018-06-18] MEDS ORDERED: TRESIBA FLEXTOUCH U-100 SUBQ SCH (09:00)
[2018-06-18] MEDS ORDERED: SINGULAIR PO SCH (09:00)
[2018-06-18] MEDS ORDERED: PRINIVIL PO SCH (09:00)
[2018-06-18] MEDS ORDERED: ZYRTEC PO SCH (09:00)
[2018-06-18] MEDS ORDERED: VITAMIN D PO SCH (09:00)
--- NOTE | 2018-06-19 01:42 | DISCHARGE SUMMARY ---
ADMISSION DATE: 06/08/2018 DISCHARGE DATE: 06/17/2018 PRIMARY CARE PHYSICIAN: Dr. Jenkins. ADMISSION DIAGNOSES: 1. Diabetic ketoacidosis. 2. History of asthma with no exacerbation. 3. Possible hypothyroidism. DISCHARGE DIAGNOSES: 1. Diabetic ketoacidosis, resolved. 2. Diabetes type 2 with hyperglycemia, uncontrolled. 3. Hypothyroidism. 4. Asthma, controlled. SUMMARY OF FINDINGS: This is a 52-year-old female who presented to the emergency room with complaints of generalized weakness and lethargy. States she did have a syncopal episode while in triage age, that she is a type 1 diabetic, has been taking her insulin as prescribed, but has not been monitoring her glucose in quite some time because she did not have any monitor strips. She was found to have a blood sugar of 600 with a CO2 of 6 with an anion gap of 39. She was acetone positive and her pH was 7.0 a consistent with a DKA so she was admitted to the intensive care unit and placed on our DKA protocol. She did well with that. We did a gastric emptying study on 06/16/2018 that showed normal gastric emptying. Her blood sugars on the day of discharge were down to 166. She was off the insulin drip and it was felt that she could safely be discharged home. DISCHARGE MEDICATIONS: Included albuterol 1 to 2 puffs inhalation 3-4 times daily p.r.n., cetirizine 10 mg p.o. daily, vitamin D3 2000 units p.o. daily, epinephrine 0.3 mg p.r.n., Flonase 1 spray nasally daily, Tresiba 50 units subcutaneous daily, Novolin R as directed, lisinopril 5 mg p.o. daily, metformin 1000 mg p.o. b.i.d., Robaxin 750 mg p.o. t.i.d. p.r.n., Singulair 10 mg p.o. daily, Zofran ODT 4 mg p.o. q.4 hours #25 with 1 refill p.r.n., MiraLAX 17 g p.o. t.i.d. p.r.n. FOLLOWUP: She has an appointment with her primary care physician on 06/29/2018 at 3 p.m. and she is to see and schedule an appointment with the dietitian outpatient for management of her diabetes. TIME: 33 minutes. This to Leobardo Jenkins. Dictated by FLAVIA Narvaez for Roe Olivo MD cc: FLAVIA Narvaez MD Thomas E. Lockard, DO
== END 2018-06-17 16:55 | disposition home or self-care (01) | DRG 638 ==
LOC: P.ED 12:22 → P.ICU 16:18 → SUATTDRO 16:18 → P.MEDSURG 06-10 17:18
PROVIDERS: ATTEND Internal Medicine
CPT/HCPCS: 51702; 71010; 71045; 78264; 80048; 80053; 80069; 80104; 80301; 80305; 81001; 82009; 82140; 82805; 82948; 83036; 83735; 84100; 84443; 84484; 85025; 85027; 87040; 87275; 87276; 87804; 93005; 96360; 99285; A9270; A9541; G0431; G0434; G0477; J1815; J2405; J2765; J3480; J7030; J7042; XXXXX

== ENCOUNTER 2018-07-11 11:32 | Inpatient (IN) ==
--- NOTE | 2018-07-11 12:09 | PROVIDER DOCUMENTATION ---
This chart was entered by Myesha Saeed Scribe, acting as scribe for Raymundo Crawford CRNP. HPI-General Adult - General Chief Complaint: Low Blood Sugar Stated Complaint: LOW BLOOD SUGAR Time Seen by Provider: 07/11/18 11:51 Source: patient Allergies/Adverse Reactions: Patient Allergies Allergy/AdvReac Type Severity Reaction Status Date / Time ceftriaxone sodium * Allergy SHORTNESS Verified 04/07/18 12:47 [From Rocephin] OF BREATH shellfish derived Allergy ANAPHYLAXIS Verified 06/17/18 09:58 aspirin AdvReac NAUSEA Verified 04/07/18 12:47 Home Medications: Home Medication List Medication Instructions Recorded Confirmed Last Taken Type Cetirizine HCl [Zyrtec] 10 mg PO DAILY 10/31/13 06/17/18 12/22/14 08:00 History Montelukast [Singulair] 10 mg PO DAILY 10/31/13 06/17/18 12/22/14 08:00 History Albuterol Sulfate [Albuterol 1 - 2 puff IH 3-4XDAY PRN PRN #1 04/18/14 06/17/18 12/22/14 08:00 Rx Sulfate Hfa] [email or web address] Methocarbamol [Robaxin-750] 750 mg PO TID PRN PRN #30 tablet 04/18/14 06/17/18 12/22/14 08:00 Rx Insulin Regular, Human [Novolin R] 100 unit IJ DIRECTED #1 vial 11/01/17 06/17/18 Unknown Rx Insulin Degludec [Tresiba 50 units SQ DAILY 02/08/18 06/17/18 Unknown History Flextouch U-100] Cholecalciferol (Vit D3) [Vitamin 2,000 unit PO DAILY #120 tab 02/11/18 06/17/18 Unknown Rx D3] Epinephrine 0.3 mg IJ PRN PRN 06/17/18 06/17/18 Unknown History Fluticasone 50 Mcg Nasal [place] 1 spray AKIRA DAILY PRN 06/17/18 06/17/18 Unknown History [Flonase] Lisinopril 5 mg PO DAILY 06/17/18 06/17/18 Unknown History Metformin [Glucophage] 1,000 mg PO BID 06/17/18 06/17/18 Unknown History Ondansetron Odt [Zofran 4 mg Odt] 4 mg PO Q4H PRN #25 tab 06/17/18 Unknown Rx Polyethylene Glycol 3350 [Miralax] 17 gm PO TID PRN 06/17/18 06/17/18 Unknown History - History of Present Illness -Gen Adult Nature of Presenting Problems: 52 y/o female presents to ED with hypoglycemia, multiple falls, tongue numbness, and weakness of bilateral lower extremities onset last night. Pt report she was admitted for hyperglycemia 1 month ago and her PCP put her on ozempic injections. FSBS 57 in triage. Pt is alert and oriented. Location of Pain/Injury: reports: none Pain Radiation: reports: no radiation Quality of Pain: reports: none Severity: reports: mild, moderate Onset/Duration: reports: last night Timing: reports: still present Context/Activities at Onset: reports: none Modifying Factors: improves with: nothing Associated Symptoms: reports: weakness (bilateral lower extremities), other (hypoglycemia; multiple falls; tongue numbness) Similar Symptoms Previously?: No Recently seen or treated by another doctor?: Yes (PCP) Review of Systems - Adult - REVIEW OF SYSTEMS - ADULT Constitutional: reports: other (hypoglycemia; multiple falls). denies: chills, fever Eyes: reports: no symptoms reported Ears, Nose, Mouth & Throat: reports: no symptoms reported Cardiovascular: denies: chest pain, palpitations Respiratory: denies: cough, shortness of breath Gastrointestinal: denies: abdominal pain, diarrhea, nausea, vomiting Genitourinary: reports: no symptoms reported Musculoskeletal: denies: back pain, joint pain Integumentary: reports: no symptoms reported Neurological: reports: other (multiple falls; tongue numbness; weakness of bilateral lower extremities). denies: dizziness/vertigo, seizure Psychiatric: reports: no symptoms reported Endocrine: reports: other (hypoglycemia). denies: goiter Hematologic/Lymphatic: reports: no symptoms reported Allergic/Immunologic: reports: no symptoms reported All Other Systems: Reviewed and Negative Past History - Adult - PAST MEDICAL HISTORY-ADULT Review of Records: reports: Old Records Reviewed, Nursing Assessment Review, Medications Reviewed Major Childhood Illnesses: reports: denies history Cardiovascular: reports: denies history Respiratory: reports: asthma Gastrointestinal: reports: denies history Obstetrical/Gynecological: reports: denies history Genitourinary: reports: denies history Musculoskeletal: reports: chronic pain (back), neck/back injury Neurological: reports: headaches/migraines Endocrine/Immune: reports: Diabetes Other Conditions: reports: denies history, MRSA - PRIOR SURGERIES/PROCEDURES Surgical/Procedure History: reports: appendectomy, hysterectomy, BTL - IMMUNIZATION STATUS Childhood Immunizations: See Nurse Assessment Flu Vaccine: See Nurse Assessment - FAMILY HISTORY Family History: reviewed, not pertinent - SOCIAL HISTORY Smoking: non-smoker Substance Use: none/never Alcohol Use Frequency: never Living Situation: family Physical Exam-General - PHYSICAL EXAM-ADULT Initial Vital Signs Reviewed: Yes - CONSTITUTIONAL General Appearance: appears well, alert, no apparent distress - EYES Eyes: PERRL/EOMI, pink conjunctivae - HEAD, EARS, NOSE, MOUTH & THROAT HENMT: normocephalic/atraumatic, moist mucous membranes, normal ENT inspection - NECK Neck: non-tender, full range of motion - RESPIRATORY Respiratory: chest non-tender, lungs clear, normal breath sounds - CARDIOVASCULAR Cardiovascular: normal peripheral pulses, regular rate, rhythm - GASTROINTESTINAL (ABDOMEN) Abdominal Exam: normal bowel sounds, non tender, soft - MUSCULOSKELETAL Back Exam: normal inspection, no CVA tenderness, no vertebral tenderness Extremity: normal range of motion, non-tender, normal gait - SKIN Integumentary: normal color, warm/dry - NEUROLOGIC 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, grossly normal, no motor/sensory deficits - PSYCHIATRIC Psych/Mental Status: normal mood/affect, normal thought content, normal thought process Progress - PLAN OF CARE/RESULTS Progress/Plan/Lab Results: Vital Signs - 8 hr 07/11/18 11:35 Temperature 98 F Pulse Rate 86 Respiratory Rate 18 Blood Pressure 117/78 O2 Sat by Pulse Oximetry 99 Laboratory Results - last 24 hr 07/11/18 11:38 POC Glucose 57 L D Orders Category Date Time Status Saline Loc NOW Care 07/11/18 11:[address] HEAD W/O CONTRAST [CT] Stat Exams 07/11/18 11:59 Ordered CBC WITH ELECTRONIC DIFF [HEME] Stat Lab 07/11/18 11:58 Ordered CK PROFILE [SP CHEM] Stat Lab 07/11/18 11:58 Ordered COMPREHENSIVE METABOLIC PANEL [CHEM] Stat Lab 07/11/18 11:[address] W/POSS RFLX CULT [URINALYSIS] Stat Lab 07/11/18 11:58 Uncollected Laboratory Tests 07/11/18 07/11/18 07/11/18 11:38 12:35 12:35 WBC 20.81 H RBC 4.48 Hgb 14.0 Hct 44.1 MCV 98.4 MCH 31.3 H MCHC 31.7 L RDW Std Deviation 15.8 H Plt Count 443 H MPV 9.2 Immature Gran % (Auto) 0.2 Neut % (Auto) 91.2 H Lymph % (Auto) 5.0 L Emmons % (Auto) 3.6 Eos % (Auto) 0.0 Baso % (Auto) 0.0 Immature Gran # (Auto) 0.05 H Neut # (Auto) 18.97 H Lymph # (Auto) 1.04 L Emmons # (Auto) 0.74 H Eos # (Auto) 0.00 Baso # (Auto) 0.01 Sodium 142 Potassium 4.7 Chloride 101 Carbon Dioxide 30 Anion Gap 12 BUN 11 Creatinine 0.5 Estimated GFR/1.73 m2 > 60 BUN/Creatinine Ratio 22 Glucose 70 POC Glucose 57 L D Calculated Osmolality 281 Calcium 9.9 Total Bilirubin 0.40 AST 78 H ALT 19 Alkaline Phosphatase 85 Creatine Kinase 1808 H Creatine Kinase Index 2.8 H CK-MB (CK-2) 51.48 H Total Protein 8.8 H Albumin 4.4 Globulin 4.0 Albumin/Globulin Ratio 1.0 Urine Source Urine Color Urine Clarity Urine pH Ur Specific [place] Urine Protein Urine Ketones Urine Blood Urine Nitrite Urine Bilirubin Urine Urobilinogen Urine Microscopic RBC Urine WBC Ur Epithelial Cells Urine Bacteria Urine Glucose 07/11/18 12:35 WBC RBC Hgb Hct MCV MCH MCHC RDW Std Deviation Plt Count MPV Immature Gran % (Auto) Neut % (Auto) Lymph % (Auto) Emmons % (Auto) Eos % (Auto) Baso % (Auto) Immature Gran # (Auto) Neut # (Auto) Lymph # (Auto) Emmons # (Auto) Eos # (Auto) Baso # (Auto) Sodium Potassium Chloride Carbon Dioxide Anion Gap BUN Creatinine Estimated GFR/1.73 m2 BUN/Creatinine Ratio Glucose POC Glucose Calculated Osmolality Calcium Total Bilirubin AST ALT Alkaline Phosphatase Creatine Kinase Creatine Kinase Index CK-MB (CK-2) Total Protein Albumin Globulin Albumin/Globulin Ratio Urine Source CLEAN CATCH Urine Color YELLOW Urine Clarity CLEAR Urine pH 7.0 Ur Specific [place] 1.010 Urine Protein TRACE A Urine Ketones TRACE Urine Blood NEGATIVE Urine Nitrite NEGATIVE Urine Bilirubin NEGATIVE Urine Urobilinogen NORMAL Urine Microscopic RBC Not Reportable Urine WBC TRACE A Ur Epithelial Cells <10 Urine Bacteria 1+ Urine Glucose NEGATIVE Discussed results and plan of care with patient. Patient agrees with plan and verbalizes understanding. Result Diagrams: 07/11/18 12:35 07/11/18 12:35 - EKG 1 Time of EKG reading by physician:: 13:42 EKG Read and Signed by:: Elver Vu EKG Interpretation (*Must complete 3 of following elements*): Normal Rate: 86 Rhythm: NSR Delta: normal QRS: normal OK Interval: normal ST Wave: normal - CT/MRI 1 CT Study: Head Impression: Normal (FINDINGS: There is no definite acute infarct given the limited sensitivity of CT versus MRI. There is no discrete intracranial mass, mass effect, or intracranial hemorrhage. The surrounding soft tissues and bony structures are essentially unremarkable. IMPRESSION: No evidence of acute intracranial pathology. Electronically signed by Roderick Malcolm 07/11/2018 12:28 PM) - CONSULTS/PCP/HOSPITALIST Notification #1 *Consult/PCP/Hospitalist*: Dr. Fierro Time Discussed: 14:06 Reason/Comments: Admission Consult Disposition: Admit Departure - Departure Date of Disposition Decision: 07/11/18 Time of Disposition Decision: 14:06 DIAGNOSIS: Hypoglycemia, Elevated CK Leukocytosis Qualifiers: Leukocytosis type: unspecified Qualified Code(s): D72.829 - Elevated white blood cell count, unspecified Disposition: ADMITTED INPATIENT 09 Certified Medical Emergency: Emergent Condition: Stable Referrals and Follow-Ups: Leobardo Jenkins DO [Primary Care Provider] - - Critical Care Note This patient required my direct & personal management of CC.: No Attestation - Physician/ SHAW Attestation Patient care was provided by Advanced Practice Provider:: Yes Advanced Practice Provider:: Raymundo Crawford Advanced Practice Provider documentation review:: The Mid-level provider documentation, treatment plan and medical decision making was reviewed by the physician who agrees with all treatment and medical decision making by the MLP. The physician spent face to face time with patient:: No Advanced Practice Provider documentation review:: Supervising physician onsite and consulted in the evaluation and care of this patient. The physician did not have a face to face encounter with the patient. This chart was documented by the indicated scribe, (Myesha Saeed, Harpreet) and accurately reflects the services I performed and decisions made by me, Raymundo Crawford CRNP, as attested by the provider's signature.
--- NOTE | 2018-07-11 12:31 | Diag Imaging Result Doc PS360 ---
EXAM: CT HEAD W/O CONTRAST INDICATION: weakness TECHNIQUE: This exam was performed using automated exposure control, adjustment of mA or kV according to patient size, and/or use of iterative reconstruction technique. COMPARISON: 9 FINDINGS: There is no definite acute infarct given the limited sensitivity of CT versus MRI. There is no discrete intracranial mass, mass effect, or intracranial hemorrhage. The surrounding soft tissues and bony structures are essentially unremarkable. IMPRESSION: No evidence of acute intracranial pathology. Electronically signed by Roderick Malcolm 07/11/2018 12:28 PM
[2018-07-11 12:44] LABS: BASO# 0.01 X1000 (0.0-0.2); HEMATOCRIT 44.1 % (37.0-47.0); IMM GRAN# 0.05 X1000 (0.0-0.04); IMM GRAN% 0.2 % (0.0-0.5); LYMPH# 1.04 X1000 (1.2-3.4); MCH 31.3 PG (27-31); MCHC 31.7 g/dL (33-37); MCV 98.4 FL (81-99); MONO# 0.74 X1000 (0.11-0.59); MONO% 3.6 % (1.7-9.3); MPV 9.2 FL (7.4-10.4); NEUT# 18.97 X1000 (1.4-6.5); NEUT% 91.2 % (42.2-75.2); PLT 443 X1000 (130-400); RBC 4.48 XMIL (4.2-5.4); RDW 15.8 % (11.5-14.5); WBC 20.81 X1000 (4.8-10.8)
[2018-07-11 12:57] LABS: BILIRUBIN URINE NEGATIVE (NEGATIVE); BLOOD URINE NEGATIVE (NEGATIVE); CLARITY CLEAR (CLEAR); COLOR YELLOW; GLUCOSE URINE NEGATIVE (NEGATIVE); KETONE URINE TRACE mg/dL (NEGATIVE); LEUKOCYTES URINE TRACE (NEGATIVE); NITRITE URINE NEGATIVE (NEGATIVE); PROTEIN URINE TRACE mg/dL (NEGATIVE); UROBILINOGEN URINE NORMAL
[2018-07-11 12:59] LABS: URINE BACTERIA 1+ /HFP; URINE EPITHELIAL CELLS <10 /HPF (<10); URINE SOURCE CLEAN CATCH
[2018-07-11 13:10] LABS: AGAP 12; ALBUMIN 4.4 g/dL (3.5-5.0); ALKALINE PHOSPHATASE 85 U/L (32-104); BUN 11 mg/dL (8-22); CALCIUM 9.9 mg/dL (8.8-10.2); CHLORIDE 101 mmol/L (98-107); CK PROFILE 1808 U/L (24-173); COSMO 281; CREATININE 0.5 mg/dL (0.5-0.9); ESTIMATED GFR > 60; GLUCOSE 70 mg/dL (70-104); GOT 78 U/L (10-30); GPT 19 U/L (10-36); POTASSIUM 4.7 mmol/L (3.5-5.1); SODIUM 142 mmol/L (136-145); TCO2 30 mmol/L (25-35); TOTAL PROTEIN 8.8 g/dL (6.3-8.3)
[2018-07-11 13:26] LABS: CK INDEX 2.8 (0.0-2.5); CK-MB 51.48 ng/mL (0.0-5.0)
[2018-07-11] MEDS ORDERED: NS 1,000 ML IV ONE (14:08)
[2018-07-11] MEDS ORDERED: D50W SYRINGE IV ONE (15:24)
[2018-07-11] MEDS ORDERED: D50W SYRINGE ONE (15:28)
[2018-07-11] MEDS: D5 NS 1,000 ML IV SCH (15:40)
[2018-07-11] MEDS ORDERED: SODIUM CHLORIDE 0.9% INJ SCH (15:45)
[2018-07-11] MEDS ORDERED: MIRALAX PO PRN (15:58)
[2018-07-11] MEDS ORDERED: DUONEB (A & A) INH PRN (16:02)
[2018-07-11] MEDS ORDERED: ZYRTEC PO SCH (16:15)
[2018-07-11] MEDS ORDERED: SOLU-MEDROL IV SCH (16:15)
--- NOTE | 2018-07-11 16:49 | Diag Imaging Result Doc PS360 ---
EXAM: CHEST-PORTABLE INDICATION: elevated wbc TECHNIQUE: One view COMPARISON: 06/08/2018 FINDINGS: The lungs are grossly clear. There is no discrete pleural fluid collection or pneumothorax. The cardiomediastinal silhouette and central vasculature are grossly unremarkable. IMPRESSION: No evidence of acute pathology by plain radiograph. Electronically signed by Roderick Malcolm 07/11/2018 4:46 PM
[2018-07-11 16:53] LABS: CK INDEX 2.5 (0.0-2.5); CK-MB 44.37 ng/mL (0.0-5.0)
--- NOTE | 2018-07-11 17:36 | HISTORY AND PHYSICAL ---
CHIEF COMPLAINT: Low blood sugar and falling. HISTORY OF PRESENT ILLNESS: This is a 52-year-old female with a history of diabetes mellitus and hypothyroid who presents to the emergency room complaining of multiple falls over the last 24 hours, bilateral lower extremity edema and pain that has been present since her discharge from the hospital on 06/18/2018 as well as tongue edema and numbness. Ms Frank was admitted to the hospital from June 08 to June 17 having DKA. She followed up with her primary care physician on June 29 and was started on Ozempic along with her Tresiba. She does not check her blood sugars regularly but over the last 24 hours she was falling. Therefore, her mother brought her in for evaluation. On arrival to the emergency room, her blood sugar was 57. She denies any injury to her tongue. There are no bite voss noted just edema to the right side of her tongue with numbness. Of note the patient is on lisinopril. PAST MEDICAL HISTORY: Hypothyroid, diabetes mellitus type 2, asthma. PAST SURGICAL HISTORY: Appendectomy and hysterectomy. SOCIAL HISTORY: She denies alcohol, tobacco, or illicit drug use. ALLERGIES: Rocephin which causes shortness of breath, aspirin which causes nausea, shellfish which causes anaphylaxis, lisinopril that possibly causes angioedema. REVIEW OF SYSTEMS: Discussed with the patient with pertinent positives stated in the HPI. She denied any dizziness, any chest pain, palpitations, shortness of breath, cough, fever, chills, any night sweats, any nausea, vomiting, diarrhea, constipation, black or bloody vomitus or stools, any hematuria, dysuria, frequency, urgency. PHYSICAL EXAMINATION: GENERAL: This is a 52-year-old female who is lying in the bed in no distress. VITAL SIGNS: Blood pressure is 106/59 with a heart rate of 81, respirations are 18, temperature is 97.9 degrees oral with room air saturations 100%. HEENT: Pupils are equal, round, react to light. EOMs are intact. Sclerae are anicteric. Head is normocephalic, atraumatic. Mucous membranes are moist. She has no lip nor uvula edema. The right side of her tongue is slightly edematous. NECK: Supple with trachea midline. CARDIOVASCULAR: Regular rate and rhythm. S1 and S2 appreciated. She does have 1 to 2+ pedal edema. Calves are nontender with peripheral pulses palpable x4 extremities. PULMONARY: Breath sounds are clear with no increased work of breathing noted. Chest rises and falls symmetric with respiration. GASTROINTESTINAL: Abdomen is soft, nontender, nondistended with bowel sounds in all 4 quadrants. GENITOURINARY: She has no CVAT nor suprapubic tenderness. NEUROLOGIC: She is alert and oriented x3. SKIN: Warm and dry. LABS: WBC is 20 with a hemoglobin 14.1, hematocrit 44, platelets of 443,000. Sodium 142, potassium 4.7, BUN 11, creatinine 0.5 with a glucose of 70. Total CK is 1808 with CK-MB is 51.48. Negative troponin. CT of the head revealed no evidence of acute intracranial pathology. Chest x- ray is pending radiology read. ASSESSMENT AND PLAN: 1. Hypoglycemia. Causes could be multifactorial. The patient was on Tresiba as well as metformin, Ozempic was added approximately 2 weeks ago. She has had very little p.o. intake over the last 48 hours due to the right side of her tongue swelling. We will hold her lisinopril. Will hold all of her oral antidiabetic medications. We will trend blood sugars every 4 hours and treat accordingly. 2. Diabetes type 2 aware. 3. Questionable hypothyroid. Will check a TSH. 4. Rhabdomyolysis secondary to falls. Will trend CPKs every 4 hours, will give IV hydration and follow. 5. Leukocytosis. The patient has no temperature. She complains of no symptoms over the last 48 hours. This is very likely an inflammatory response. We will monitor her vital signs, monitor daily CBC. If she has complaints or source is found, antibiotics will be started. We will reassess in the morning. 6. Angioedema. The patient has been on lisinopril for quite some time with no problems prior, she was just started on Ozempic approximately 2 weeks ago. We will stop these medications. Will give Pepcid 20 mg IV b.i.d., hydroxyzine 25 mg p.o. q.8 hours, will give steroids low dose at 40 mg IV q.8 hours as well as Zyrtec 10 mg p.o. and will monitor. 7. She will be placed on a diabetic diet. 8. For deep vein thrombosis prophylaxis will repeat a CBC, CMP, as well as total CPK in the morning. Further treatments pending hospital course. Dictated by FLAVIA Muhammad for Terell Fierro MD This chart was documented by, FLAVIA Muhammad and accurately reflects the services performed, treatment plan and medical decisions as attested by the providers signature Terell Fierro MD. cc: FLAVIA Muhammad MD
[2018-07-11] MEDS: ATARAX PO SCH (17:40)
[2018-07-11] MEDS: SOLU-MEDROL IV SCH (17:40)
[2018-07-11] MEDS: PEPCID IV SCH (17:41)
[2018-07-11 20:32] LABS: CK INDEX 2.2 (0.0-2.5); CK-MB 38.49 ng/mL (0.0-5.0)
[2018-07-12] MEDS: SOLU-MEDROL IV SCH ×3 (00:56→16:38)
[2018-07-12] MEDS: ATARAX PO SCH ×3 (00:56→16:38)
--- NOTE | 2018-07-12 01:03 | HISTORY AND PHYSICAL ---
ADDENDUM: Patient seen and examined by myself. Full note dictated and discussed with nurse practitioner. The patient apparently was recently started on Ozempic. She has over the past few days been developing hypoglycemic episodes and has fallen several times. States her last fall was pretty significant. Her CPK is elevated at 1808 and white count is elevated 20. Blood sugar is low at 50. We will admit the hospital. IV fluids. We will start D5 if her blood sugar remain low. We will hold her Tresiba and Ozempic. Further orders as needed. cc: Terell Fierro MD
[2018-07-12 01:27] LABS: CK INDEX 1.8 (0.0-2.5); CK-MB 23.47 ng/mL (0.0-5.0)
[2018-07-12] MEDS: D5 NS 1,000 ML IV SCH (02:11)
[2018-07-12] MEDS: PEPCID IV SCH ×2 (03:34→16:48)
[2018-07-12 06:17] LABS: HEMATOCRIT 39.5 % (37.0-47.0); HEMOGLOBIN 12.4 g/dL (12.0-16.0); MCH 31.4 PG (27-31); MCHC 31.4 g/dL (33-37); MPV 9.9 FL (7.4-10.4); RBC 3.95 XMIL (4.2-5.4); WBC 11.42 X1000 (4.8-10.8)
[2018-07-12 06:39] LABS: AGAP 11; ALBUMIN 3.7 g/dL (3.5-5.0); ALKALINE PHOSPHATASE 74 U/L (32-104); BUN 11 mg/dL (8-22); CALCIUM 9.1 mg/dL (8.8-10.2); CHLORIDE 105 mmol/L (98-107); COSMO 289; CREATININE 0.6 mg/dL (0.5-0.9); ESTIMATED GFR > 60; GLUCOSE 276 mg/dL (70-104); GOT 52 U/L (10-30); GPT 16 U/L (10-36); POTASSIUM 4.5 mmol/L (3.5-5.1); SODIUM 140 mmol/L (136-145); TCO2 25 mmol/L (25-35); TOTAL PROTEIN 7.3 g/dL (6.3-8.3)
[2018-07-12] MEDS ORDERED: FLONASE NAS PRN (09:13)
[2018-07-12] MEDS ORDERED: VENTOLIN HFA INH PRN (09:13)
[2018-07-12] MEDS ORDERED: INSULIN PEN NEEDLES MISC PRN (09:46)
[2018-07-12] MEDS: ZYRTEC PO SCH (10:23)
[2018-07-12] MEDS: ROBAXIN PO PRN ×2 (10:23→21:00)
[2018-07-12] MEDS ORDERED: MBX SOLUTION MT PRN (11:08)
[2018-07-12] MEDS: SINGULAIR PO SCH (11:21)
[2018-07-12] MEDS: GLUCOPHAGE PO SCH ×2 (11:21→16:38)
[2018-07-12] MEDS: TRESIBA FLEXTOUCH U-100 SUBQ SCH (11:21)
[2018-07-12] MEDS: HUMALOG (PARKWAY) SUBQ SCH ×3 (11:21→21:00)
--- NOTE | 2018-07-12 18:13 | PROGRESS NOTE ---
DATE: 07/12/2018 SUBJECTIVE: Patient has not been eating. She notes that her tongue is still swollen and tender. Denies any shortness of breath. Denies any facial or lip swelling. Denies any choking or coughing spells. She states she feels like her tongue is more swollen today than previous. PHYSICAL: Temperature 98.7, pulse 85, respiratory 20, BP 124/71.General: Patient is in no current respiratory distress. HEENT: Normocephalic. Neck: Supple. CV: Regular rate. Chest: Clear. Abdomen: Soft. Extremities: Moves all extremities. Oropharynx. Her tongue does not appear to be any more swollen today than previous exam. In fact it does not really appear to be swollen at all. ASSESSMENT: 1. Hypoglycemia. Blood sugars are much improved currently in the mid 200s. We will stop her D5 and will follow. Will start back on half of her Lantus at 30 units instead of 60, will continue to hold her [*] as it is possible that it caused her tongue swelling although as noted she does not appear to have any tongue swelling visibly. 2. Rhabdo likely secondary to falls, CK is improving down from 1725 currently at 1320. 3. Diabetes with very poor home control and A1c of 10. 4. Leukocytosis resolved, white count is down to 11. PLAN: Will continue to follow, further orders as needed. cc: Terell Fierro MD
[2018-07-13] MEDS: SOLU-MEDROL IV SCH ×2 (02:55→10:16)
[2018-07-13] MEDS: PEPCID IV SCH ×2 (02:55→18:31)
[2018-07-13] MEDS: HUMALOG (PARKWAY) SUBQ SCH ×3 (06:15→18:31)
--- NOTE | 2018-07-13 10:11 | EKG Report ---
Test Performed on : 07/11/2018 1:42:09 PM Test Reason : weakness Blood Pressure : / mmHG Vent. Rate : 086 BPM Atrial Rate : 086 BPM P-R Int : 138 ms QRS Dur : 078 ms QT Int : 378 ms P-R-T Axes : 070 076 076 degrees QTc Int : 452 ms Normal sinus rhythm. Normal ECG When compared with ECG of 10-APR-2018 09:43, Nonspecific T wave abnormality now evident in Lateral leads Unconfirmed Result
[2018-07-13] MEDS: GLUCOPHAGE PO SCH ×2 (10:16→18:31)
[2018-07-13] MEDS: ZYRTEC PO SCH (10:17)
[2018-07-13] MEDS: TRESIBA FLEXTOUCH U-100 SUBQ SCH (10:17)
[2018-07-13] MEDS: SINGULAIR PO SCH (10:17)
[2018-07-13 11:54] LABS: HEMATOCRIT 39.7 % (37.0-47.0); HEMOGLOBIN 12.7 g/dL (12.0-16.0); MCH 31.6 PG (27-31); MCV 98.8 FL (81-99); MPV 10.1 FL (7.4-10.4); RBC 4.02 XMIL (4.2-5.4); RDW 15.6 % (11.5-14.5); WBC 10.94 X1000 (4.8-10.8)
[2018-07-13 11:58] LABS: AGAP 12; BUN 18 mg/dL (8-22); CALCIUM 9.3 mg/dL (8.8-10.2); CHLORIDE 101 mmol/L (98-107); CK TOTAL 234 U/L (24-173); COSMO 291; CREATININE 0.6 mg/dL (0.5-0.9); ESTIMATED GFR > 60; GLUCOSE 267 mg/dL (70-104); POTASSIUM 4.6 mmol/L (3.5-5.1); SODIUM 140 mmol/L (136-145); TCO2 28 mmol/L (25-35)
[2018-07-13 17:03] VITALS: BP 122/80
--- NOTE | 2018-07-13 17:56 | DISCHARGE SUMMARY ---
ADMISSION DATE: 07/11/2018 DISCHARGE DATE: 07/13/2018 PRIMARY CARE PHYSICIAN: Dr. Leobardo Jenkins. ADMISSION DIAGNOSIS: 1. Hypoglycemia. 2. Type 2 diabetes. 3. Rhabdomyolysis secondary to falls. 4. Leukocytosis. 5. Angioedema. DISCHARGE DIAGNOSIS: 1. Hypoglycemia, resolved. 2. Rhabdomyolysis likely secondary to falls, improved. 3. Diabetes type 2 with hyperglycemia, uncontrolled with hemoglobin A1c of 10. 4. Leukocytosis resolved. SUMMARY OF FINDINGS: This is a 52-year-old female who presented to the emergency room after she complained of multiple falls over 24 hours prior to arriving, some bilateral lower extremity edema and pain that had been present since her discharge from the hospital on 06/18/2018 as well as tongue edema and numbness. She had been admitted to the hospital for a DKA episode June 08 through the , she states she followed up with her primary care physician on June 29 and was started on Ozempic along with her Tresiba states she does not check her blood sugars regularly and for 24 hours prior to arriving had been falling. Her blood sugar when she arrived to the emergency room was 57. Denied any injury to her tongue. She is noted to have been on lisinopril but she has been on that for a long time but was just started again on the Ozempic so we stopped it. Her CT of the head showed no evidence of acute intracranial pathology. Her chest x-ray showed no evidence of acute pathology by plain radiograph. Her leukocytosis has now resolved. Her blood sugar is now up today to 267 and it is felt that she can safely be discharged home today. DISCHARGE MEDICATIONS: Include albuterol 1 to 2 puffs 3 to 4 times daily p.r.n., Zyrtec 10 mg p.o. daily, Flonase 1 spray nasally daily p.r.n., metformin 1000 mg p.o. b.i.d., Robaxin 750 mg p.o. t.i.d. p.r.n., Singulair 10 mg p.o. daily, MiraLAX 17 g p.o. t.i.d. p.r.n., vitamin D3 2000 units p.o. daily, doxycycline 100 mg p.o. b.i.d., a prescription for an epinephrine autoinjector 0.3 mg p.r.n., prescription for Tresiba 50 units subcu daily #1 insulin pen, her Novolin R as directed, Zofran ODT 4 mg p.o. q.4 hours p.r.n. FOLLOWUP: She will need to follow up with her primary care physician in 1 to 2 weeks and call their office for an appointment. TIME SPENT: 35 minutes Dictated by FLAVIA Narvaez for Roe Olivo MD cc: FLAVIA Narvaez MD Thomas E. Lockard, DO [facility]
--- NOTE | 2018-07-13 20:53 | DISCHARGE SUMMARY ---
ADMISSION DATE: 07/11/2018 DISCHARGE DATE: 07/13/2018 DISCHARGE ADDENDUM: On day of discharge she seems to be doing okay. Tolerating p.o. without difficulty. No major issues on exam. Regular rate and rhythm. Bilateral breath sounds. Now, from her hyperglycemia, Dr. Fierro's note stated decreasing her Lantus to 30 instead of 60, but she is currently on 60, and she is not on Lantus she is onTresiba, but I think her Tresiba was decreased from 70 to 60, although right now her outpatient dose says it is 60. So I am not quite sure what she has been taking. Her sugars now have improved, although today I think she got 60 of Tresiba, but she did have some sugars in the middle of the night that had dropped as low as 96 and when she came in was 57. So, I think we may decrease her Tresiba to 50 and see how she does. She is also on Ozembiq. Her CPK is much improved. Her CPK is down to 234 from 1320. She is not on any statin therapy. It is not clear what that is related to, but will continue to follow. We will stop lisinopril because she reported tongue swelling although I did not appreciate anything on exam. We will go ahead and stop semaglutide as well. This is a [id number] encounter with Pinky Hawkins. TIME SPENT: 32 minute discharge. cc: Roe Olivo MD [facility]
[2018-07-13] MEDS ORDERED: SOLU-MEDROL IV SCH (22:00)
[2018-07-14] MEDS ORDERED: TRESIBA FLEXTOUCH U-100 SUBQ SCH (09:00)
== END 2018-07-13 19:47 | disposition home or self-care (01) | DRG 639 ==
LOC: P.ED 11:32 → SUATTDRO 14:29 → P.MEDSURG 14:29
PROVIDERS: ATTEND Internal Medicine
CPT/HCPCS: 36415; 70450; 71010; 71045; 80048; 80053; 81001; 82550; 82553; 82947; 82948; 83036; 84484; 85025; 85027; 93005; 93970; 94640; 99285; A9270; J1815; J2920; J7042; S0028; XXXXX

== ENCOUNTER 2018-07-28 08:48 | Inpatient (IN) ==
[2018-07-28] MEDS ORDERED: D50W SYRINGE ONE ×2 (09:30→12:10)
[2018-07-28] MEDS ORDERED: D50W SYRINGE IV ONE ×3 (09:37→12:19)
--- NOTE | 2018-07-28 09:37 | PROVIDER DOCUMENTATION ---
HPI-General Adult - General Chief Complaint: Low Blood Sugar Stated Complaint: LOW BLOOD SUGAR Time Seen by Provider: 07/28/18 09:31 Source: patient Allergies/Adverse Reactions: Patient Allergies Allergy/AdvReac Type Severity Reaction Status Date / Time ceftriaxone sodium * Allergy SHORTNESS Verified 04/07/18 12:47 [From Rocephin] OF BREATH lisinopril Allergy SWELLING Verified 07/11/18 15:07 shellfish derived Allergy ANAPHYLAXIS Verified 06/17/18 09:58 aspirin AdvReac NAUSEA Verified 04/07/18 12:47 Home Medications: Home Medication List Medication Instructions Recorded Confirmed Last Taken Type Cetirizine HCl [Zyrtec] 10 mg PO DAILY 10/31/13 07/11/18 12/22/14 08:00 History Montelukast [Singulair] 10 mg PO DAILY 10/31/13 07/11/18 12/22/14 08:00 History Albuterol Sulfate [Albuterol 1 - 2 puff IH 3-4XDAY PRN PRN #1 04/18/14 07/11/18 12/22/14 08:00 Rx Sulfate Hfa] [id number].[email or web address] Methocarbamol [Robaxin-750] 750 mg PO TID PRN PRN #30 tablet 04/18/14 07/11/18 12/22/14 08:00 Rx Insulin Regular, Human [Novolin R] 100 unit IJ DIRECTED #1 vial 11/01/17 07/11/18 Unknown Rx Cholecalciferol (Vit D3) [Vitamin 2,000 unit PO DAILY #120 tab 02/11/18 07/11/18 Unknown Rx D3] Epinephrine 0.3 mg IJ PRN PRN 06/17/18 07/11/18 Unknown History Fluticasone 50 Mcg Nasal [place] 1 spray AKIRA DAILY PRN 06/17/18 07/11/18 Unknown History [Flonase] Metformin [Glucophage] 1,000 mg PO BID 06/17/18 07/11/18 Unknown History Ondansetron Odt [Zofran Odt] 4 mg PO Q4H PRN #25 tab 06/17/18 07/11/18 Unknown Rx Polyethylene Glycol 3350 [Miralax] 17 gm PO TID PRN 06/17/18 07/11/18 Unknown History Doxycycline Hyclate 100 mg PO BID 07/11/18 07/11/18 Unknown History Insulin Degludec [Tresiba 50 units SQ DAILY #1 insuln.pen 07/13/18 Unknown Rx Flextouch U-100] - History of Present Illness -Gen Adult Nature of Presenting Problems: 52 YO BF brought to ER c/o low blood sugar that was in the 30's at home. She denies any change in diet or medications. She make incidental note that he tongue has been numb for the last 2 weeks since her BS dropped then. Location of Pain/Injury: reports: none Pain Radiation: reports: no radiation Quality of Pain: reports: none Severity: reports: mild Onset/Duration: reports: 1-3 hours ago Timing: reports: improving Context/Activities at Onset: reports: light activity (Pt later admitted that she has not been eating well and has been continuing her insulin as regular.) Modifying Factors: improves with: eating (pt admits to not eating because "nothing sounds good") Associated Symptoms: reports: denies symptoms Similar Symptoms Previously?: No Recently seen or treated by another doctor?: No - Diabetes Related Context Context: reports: low blood sugar - Sickle Cell Pain Related Context Sickle Cell Pain Location: reports: none Is this pain typical of prior episodes of crisis?: No Review of Systems - Adult - REVIEW OF SYSTEMS - ADULT Constitutional: reports: see HPI Eyes: reports: no symptoms reported, see HPI Ears, Nose, Mouth & Throat: reports: no symptoms reported, see HPI Cardiovascular: reports: no symptoms reported, see HPI Respiratory: reports: no symptoms reported, see HPI Gastrointestinal: reports: no symptoms reported, see HPI Genitourinary: reports: no symptoms reported, see HPI Musculoskeletal: reports: no symptoms reported, see HPI Integumentary: reports: no symptoms reported, see HPI Neurological: reports: see HPI, numbness (pt notes tongue nimbness for the past 2 weeks but has no problems with speech.) Psychiatric: reports: no symptoms reported, see HPI Endocrine: reports: no symptoms reported, see HPI Hematologic/Lymphatic: reports: no symptoms reported, see HPI Allergic/Immunologic: reports: no symptoms reported, see HPI All Other Systems: Reviewed and Negative Past History - Adult - PAST MEDICAL HISTORY-ADULT Review of Records: reports: Nursing Assessment Review, Medications Reviewed, Social history reviewed & non-contributory. Major Childhood Illnesses: reports: denies history Cardiovascular: reports: denies history Respiratory: reports: asthma Gastrointestinal: reports: denies history Obstetrical/Gynecological: reports: denies history Genitourinary: reports: denies history Musculoskeletal: reports: chronic pain (back), neck/back injury Neurological: reports: headaches/migraines Endocrine/Immune: reports: Diabetes Other Conditions: reports: denies history, MRSA - PRIOR SURGERIES/PROCEDURES Surgical/Procedure History: reports: appendectomy, hysterectomy, BTL - IMMUNIZATION STATUS Childhood Immunizations: See Nurse Assessment Flu Vaccine: See Nurse Assessment - FAMILY HISTORY Family History: reviewed, not pertinent Physical Exam-General - PHYSICAL EXAM-ADULT Initial Vital Signs Reviewed: Yes - CONSTITUTIONAL General Appearance: appears well, alert, no apparent distress - EYES Eyes: PERRL/EOMI - HEAD, EARS, NOSE, MOUTH & THROAT HENMT: normocephalic/atraumatic, moist mucous membranes, normal ENT inspection - NECK Neck: non-tender, full range of motion, supple, normal inspection - RESPIRATORY Respiratory: chest non-tender, lungs clear, normal breath sounds, no pleuratic chest pain, no respiratory distress, no accessory muscle use - CARDIOVASCULAR Cardiovascular: normal peripheral pulses, regular rate, rhythm, no edema, no gallop, no JVD, no murmur - GASTROINTESTINAL (ABDOMEN) Abdominal Exam: normal bowel sounds, non tender, soft, no organomegaly, no pulsatile mass - LYMPHATIC Lymphatic: no adenopathy - MUSCULOSKELETAL Back Exam: normal inspection, no CVA tenderness, no vertebral tenderness Extremity: normal range of motion, non-tender, normal gait, normal inspection, no pedal edema, no calf tenderness, normal capillary refill - SKIN Integumentary: normal color, normal turgor - NEUROLOGIC Neurologic: manager linux II-XII nml as tested, grossly normal - PSYCHIATRIC Psych/Mental Status: normal mood/affect, normal thought content, normal thought process, oriented x 3 Progress - PLAN OF CARE/RESULTS Progress/Plan/Lab Results: Vital Signs - 8 hr 07/28/18 08:50 Temperature 97.6 F Pulse Rate 68 Respiratory Rate 16 Blood Pressure 135/093 O2 Sat by Pulse Oximetry 100 At recheck pt admits that she has not been eating hardly anything at all for the past several days but has continued to take her scheduled insulin. Pt was given 2 different meal trays in the ER and still refused to eat asaying that she didnt want to. Family members with her state that she has not been eating at home. Result Diagrams: 07/28/18 09:15 07/28/18 09:15 - CONSULTS/PCP/HOSPITALIST Notification #1 *Consult/PCP/Hospitalist*: Dr Olivo Time Discussed: 14:01 Consult Disposition: Will see in ED, Admit Departure - Departure Date of Disposition Decision: 07/28/18 Time of Disposition Decision: 13:55 DIAGNOSIS: Hypoglycemia, Cachexia Disposition: ADMITTED INPATIENT 09 Certified Medical Emergency: Emergent Condition: Serious Referrals and Follow-Ups: Leobardo Jenkins DO [Primary Care Provider] - - Critical Care Note This patient required my direct & personal management of CC.: Yes Total Time (mins): 35 Critical Care Statement: This patient required my direct personal management to treat or rule out processes, the absence of which, could potentiallly result in sudden, clinically significant life or limb threatening deterioration. Attestation - Physician/ SHAW Attestation Patient care was provided by Advanced Practice Provider:: No The physician spent face to face time with patient:: Yes Advanced Practice Provider documentation review:: Supervising physician onsite and consulted in the evaluation and care of this patient. The physician did have a face to face encounter with the patient.
[2018-07-28 09:43] LABS: BASO# 0.02 X1000 (0.0-0.2); BASO% 0.4 % (0.0-0.8); EOS# 0.01 X1000 (0.0-0.7); EOS% 0.2 % (0.0-10.0); HEMATOCRIT 43.9 % (37.0-47.0); HEMOGLOBIN 14.2 g/dL (12.0-16.0); IMM GRAN# 0.01 X1000 (0.0-0.04); IMM GRAN% 0.2 % (0.0-0.5); LYMPH# 0.97 X1000 (1.2-3.4); MCH 31.1 PG (27-31); MCHC 32.3 g/dL (33-37); MCV 96.1 FL (81-99); MONO# 0.42 X1000 (0.11-0.59); MONO% 7.4 % (1.7-9.3); MPV 10.6 FL (7.4-10.4); NEUT# 4.28 X1000 (1.4-6.5); NEUT% 74.8 % (42.2-75.2); PLT 266 X1000 (130-400); RBC 4.57 XMIL (4.2-5.4); RDW 14.9 % (11.5-14.5); WBC 5.71 X1000 (4.8-10.8)
[2018-07-28 09:54] LABS: AGAP 10; ALBUMIN 4.8 g/dL (3.5-5.0); ALKALINE PHOSPHATASE 76 U/L (32-104); BUN 10 mg/dL (8-22); CALCIUM 10.2 mg/dL (8.8-10.2); CHLORIDE 100 mmol/L (98-107); COSMO 274; CREATININE 0.5 mg/dL (0.5-0.9); ESTIMATED GFR > 60; GLUCOSE 49 mg/dL (70-104); GOT 20 U/L (10-30); GPT 11 U/L (10-36); POTASSIUM 3.9 mmol/L (3.5-5.1); SODIUM 139 mmol/L (136-145); TCO2 30 mmol/L (25-35); TOTAL PROTEIN 8.6 g/dL (6.3-8.3)
--- NOTE | 2018-07-28 10:11 | Diag Imaging Result Doc PS360 ---
EXAM: CT HEAD W/O CONTRAST - 07/28/2018 HISTORY: numbness TECHNIQUE: CT head without contrast COMPARISON: None. FINDINGS: There is no evidence of intracranial hemorrhage, mass effect, midline shift, or hydrocephalus. There is slight ventricular asymmetry compatible with normal variation. There is no evidence of infarct, although acute infarcts may not be immediately visible. There is no evidence of skull fracture. Visualized portions of paranasal sinuses and mastoid air cells appear clear. IMPRESSION: No visible acute intracranial abnormality. No hemorrhage or mass effect. This exam was performed using automated exposure control, adjustment of mA or kV according to patient size, and/or use of iterative reconstruction technique. Electronically signed by Milad Arriaga 07/28/2018 10:08 AM
[2018-07-28 11:29] LABS: BILIRUBIN URINE NEGATIVE (NEGATIVE); BLOOD URINE NEGATIVE (NEGATIVE); CLARITY CLEAR (CLEAR); COLOR YELLOW; KETONE URINE NEGATIVE (NEGATIVE); LEUKOCYTES URINE TRACE (NEGATIVE); NITRITE URINE NEGATIVE (NEGATIVE); PROTEIN URINE NEGATIVE (NEGATIVE); SP GRAVITY URINE 1.005; UROBILINOGEN URINE NORMAL
[2018-07-28 11:31] LABS: URINE BACTERIA 1+ /HFP; URINE EPITHELIAL CELLS <10 /HPF (<10); URINE RBC <10 /HPF (<10); URINE WBC <10 /HPF (<10); URINE YEAST NONE SEEN /HPF
[2018-07-28 11:32] LABS: URINE CAST NONE SEEN /LPF; URINE CRYSTAL NONE SEEN /HPF; URINE SOURCE CLEAN CATCH
[2018-07-28] MEDS ORDERED: D10W 250 ML IV SCH (14:00)
[2018-07-28] MEDS ORDERED: D10W 1,000 ML IV SCH (15:00)
--- NOTE | 2018-07-28 15:29 | HISTORY AND PHYSICAL ---
FAMILY DOCTOR: Leobardo Jenkins DO CHIEF COMPLAINT: Low blood sugar. HISTORY OF PRESENT ILLNESS: Ms. Frank is a 52-year-old female with a history of type 2 diabetes, hypothyroidism, asthma, who presented to the ED with complaints of low blood sugar. She states she got up to get her children ready for school this morning. She was so weak she could not walk. She checked her sugars at home. They were in the 30s. She felt diaphoretic. She was brought to the ED, where she was noted to have a blood sugar that was 49. She was given 3 amps of D50 and initiated on a D10 drip. She reports that she usually eats only one meal per day is secondary to not having an appetite. There has been no change in her diabetic regimen as far as her medications. She states that her PCP is aware that she does not eat very much and that he has "fussed" with her about it before and gave her all the reeducation on the need to take her medications appropriately, as well as eating as she is supposed to. Her blood sugar had come up to 147. She is back down to 76, so she will be transferred to [facility] ICU when they have a bed available. [facility] does not have any available ICU to continue on D10 drip. PAST MEDICAL HISTORY: 1. Hypothyroidism. 2. Diabetes mellitus, type 2. 3. Asthma. PAST SURGICAL HISTORY: 1. Appendectomy. 2. Hysterectomy. SOCIAL HISTORY: She lives at home with her family. No alcohol, tobacco, or illicit drug use. ALLERGIES: 1. Rocephin causes shortness of breath. 2. Lisinopril, swelling. 3. Shellfish derivatives, anaphylaxis. 4. Aspirin, nausea. HOME MEDICATIONS: Have not been reconciled. REVIEW OF SYSTEMS: A 14 point review of systems completely negative except for those mentioned in HPI. PHYSICAL EXAMINATION: VITAL SIGNS: Temperature 97.6 degrees, heart rate 68, respirations 16, blood pressure 135/93, O2 is 100% on room air. GENERAL: Ms. Frank is a 52-year-old female, sitting up in the stretcher in no acute distress. HEENT: Atraumatic, normocephalic. PERRL. NECK: Supple. Trachea midline. CARDIOVASCULAR: S1, S2 appreciated. No murmurs, gallops, or rubs noted. RESPIRATORY: Lung sounds clear bilaterally. GASTROINTESTINAL: Flat, soft, nontender, nondistended. Hypoactive bowel sounds. EXTREMITIES: Negative for edema. No clubbing. No cyanosis. NEUROLOGIC: No focal deficits noted. Patient is awake, alert, oriented. Follows commands. Moves all extremities. DIAGNOSTIC DATA: Head CT visible acute intracranial abnormality. No hemorrhage or mass effect. LABORATORY DATA: White count 5, hemoglobin 14, hematocrit 43, platelet count 266,000. Chemistry: Sodium 139, potassium 3.9, BUN 10, creatinine 0.5, blood glucose is currently 76 and initial was 49. Urine with 2+ glucose, 1+ bacteria, negative for nitrites. ASSESSMENT AND PLAN: 1. Hypoglycemia. The patient was on several p.o. medications. Her home medicines have not been reconciled. She does admit to only eating 1 meal per day secondary to lack of appetite. She could use some diabetic education, given her diet as well as taking her medicines. 2. Type 2 diabetes. Aware. We will continue with q.1 h. fingersticks as well as IV fluids with D10. 3. Hypothyroid. 4. Asthma without any exacerbations. DISPOSITION: Patient will be transferred to [facility] for ICU as there were no available beds. ADDENDUM: PATIENT WILL BE STAYING AT [facility], ICU BEDS HAVE OPENED UP. Dictated by FLAVIA Benavides for Roe Olivo MD cc: MD Leobardo Meléndez, [facility]PITALYesica
[2018-07-28] MEDS ORDERED: D5 NS 1,000 ML IV ONE (15:48)
[2018-07-28] MEDS: D10W 1,000 ML IV SCH ×2 (16:14→23:28)
[2018-07-28] MEDS ORDERED: TYLENOL PO ONE (18:16)
[2018-07-28] MEDS: TYLENOL PO PRN (18:24)
--- NOTE | 2018-07-28 20:57 | PROGRESS NOTE ---
DATE: 07/28/2018 She came in because of low blood sugar. She was admitted last month for similar issue. I think she was admitted in the month before for that. She has very brittle diabetes. When she was discharged last time she was started on Ozempic which was stopped and her Tresiba was adjusted then her sugars started to get elevated. There is also question of angioedema so we stopped her lisinopril. She states though that Victoza was resumed , Tresiba we discharged on 50 but now she is on 60. She has been on metformin, now she is hypoglycemic but she is also not been eating so it is very difficult situation figure out what is all going on but she had persistent hypoglycemia with a sugars in the 40s, she had to be given at least looks like 3 doses of dextrose D50 1, 2, 3 between noon and 12 p.m., there is no other clear source of infection. We will monitor sugars closely. Her A1c last month was 10 which suggests poor control so we have got to come up with a decent regimen that is controlling her sugars without significant difficulty but we will continue to monitor. cc: Roe Olivo MD
--- NOTE | 2018-07-29 06:08 | Diag Imaging Result Doc PS360 ---
EXAM: CHEST-PORTABLE HISTORY: follow up TECHNIQUE: Portable chest single view COMPARISON: 07/11/2018 FINDINGS: The lungs are well expanded. The heart is not enlarged. The vessels are not distended. There are no infiltrates. No effusion identified. IMPRESSION: Negative exam. Electronically signed by Pipo Sheehan 07/29/2018 6:06 AM
[2018-07-29 07:30] LABS: BASO# 0.02 X1000 (0.0-0.2); BASO% 0.7 % (0.0-0.8); EOS# 0.08 X1000 (0.0-0.7); EOS% 2.6 % (0.0-10.0); HEMATOCRIT 43.6 % (37.0-47.0); HEMOGLOBIN 13.9 g/dL (12.0-16.0); LYMPH# 1.09 X1000 (1.2-3.4); LYMPH% 35.5 % (20.5-51.1); MCH 30.8 PG (27-31); MCHC 31.9 g/dL (33-37); MCV 96.5 FL (81-99); MONO# 0.34 X1000 (0.11-0.59); MONO% 11.1 % (1.7-9.3); MPV 10.8 FL (7.4-10.4); NEUT# 1.54 X1000 (1.4-6.5); NEUT% 50.1 % (42.2-75.2); PLT 239 X1000 (130-400); RBC 4.52 XMIL (4.2-5.4); WBC 3.07 X1000 (4.8-10.8)
[2018-07-29 07:36] LABS: HEMOGLOBIN A1C 9.3 % (4.8-6.0)
[2018-07-29 07:45] LABS: AGAP 9; ALBUMIN 3.9 g/dL (3.5-5.0); ALKALINE PHOSPHATASE 65 U/L (32-104); BUN 6 mg/dL (8-22); CALCIUM 9.4 mg/dL (8.8-10.2); CHLORIDE 101 mmol/L (98-107); COSMO 279; CREATININE 0.6 mg/dL (0.5-0.9); ESTIMATED GFR > 60; GLUCOSE 140 mg/dL (70-104); GOT 16 U/L (10-30); GPT 9 U/L (10-36); MAGNESIUM 1.8 mg/dL (1.5-2.7); POTASSIUM 3.8 mmol/L (3.5-5.1); SODIUM 140 mmol/L (136-145); TCO2 30 mmol/L (25-35); TOTAL PROTEIN 7.4 g/dL (6.3-8.3)
[2018-07-29] MEDS: ZOFRAN IV PRN (07:51)
[2018-07-29] MEDS: D10W 1,000 ML IV SCH (08:39)
[2018-07-29] MEDS ORDERED: D10W 1,000 ML IV SCH (09:14)
[2018-07-29] MEDS ORDERED: FLONASE NAS PRN (11:29)
[2018-07-29] MEDS ORDERED: MIRALAX PO PRN (11:29)
[2018-07-29] MEDS ORDERED: ROBAXIN PO PRN (11:29)
[2018-07-29] MEDS: D5 NS 1,000 ML IV SCH (11:51)
--- NOTE | 2018-07-29 12:48 | PROGRESS NOTE ---
DATE: 07/29/2018 SUBJECTIVE: Patient has no major complaints. She seems a little more awake, alert today than she was yesterday. OBJECTIVE: Vital signs: Blood pressure is 101/74, heart rate of 70, respiratory rate of 8, temperature 97.2 degrees, 100% on room air. Cardiovascular: Regular rate and rhythm. Pulmonary: Bilateral breath sounds. Clear to auscultation. Gastrointestinal: Soft, nontender, nondistended. Bowel sounds are positive. Extremity: No clubbing or cyanosis. Lymphatic: No peripheral edema. Neurological: Nonfocal. ASSESSMENT AND PLAN: 1. Her white count is 3, hemoglobin and hematocrit 13 and 43, platelets 239,000. Basic was normal. Her A1c is 9.3, which would suggest very poor control but when she gets put on her medications, she bottoms out. Currently she is on D5 but she had recently been on D10. She was here just a few weeks ago I think with a similar issue of just persistent hypoglycemia. At that point, we stopped her Ozempic. We adjusted her Tresiba. She says when she followed up, then were replaced and now she is back hypoglycemic though she is not on any medications, and her sugars on D5 are staying in the 140s. She has had a couple though above 200 now since she has been her, so in any case, just a difficult situation and she just refuses to eat which complicates the issue. We will continue to manage her blood sugars and try to get her off the infusion and see how she does. I am going to check insulin level, C-peptide, make sure she is not for some reason over-producing insulin. 2. Asthma, chronic obstructive pulmonary disease. That appears to be compensated. We will continue to follow. 3. Possible depression. I did go ahead and put her on some Remeron that may help with her appetite stimulation. She denies any depression. She has a, I think stressful social situation because she has a foster mother of multiple children, she says approximately 8, so I am sure that is very taxing and she may not be taking care of herself, but we will continue to follow. DISPOSITION: Pending her clinical status, may need Endocrinology referral when she stabilizes. cc: Roe Olivo MD
[2018-07-29] MEDS: REMERON PO SCH (21:12)
[2018-07-30] MEDS: D5 NS 1,000 ML IV SCH ×2 (03:54→18:22)
[2018-07-30 06:55] LABS: BASO# 0.01 X1000 (0.0-0.2); BASO% 0.3 % (0.0-0.8); EOS# 0.12 X1000 (0.0-0.7); EOS% 3.7 % (0.0-10.0); HEMATOCRIT 39.2 % (37.0-47.0); HEMOGLOBIN 12.2 g/dL (12.0-16.0); LYMPH% 36.7 % (20.5-51.1); MCH 30.4 PG (27-31); MCHC 31.1 g/dL (33-37); MCV 97.8 FL (81-99); MONO# 0.56 X1000 (0.11-0.59); MONO% 17.1 % (1.7-9.3); MPV 10.4 FL (7.4-10.4); NEUT# 1.38 X1000 (1.4-6.5); NEUT% 42.2 % (42.2-75.2); PLT 239 X1000 (130-400); RBC 4.01 XMIL (4.2-5.4); RDW 14.9 % (11.5-14.5); WBC 3.27 X1000 (4.8-10.8)
[2018-07-30 08:14] LABS: AGAP 9; BUN 8 mg/dL (8-22); CALCIUM 8.8 mg/dL (8.8-10.2); CHLORIDE 106 mmol/L (98-107); COSMO 286; CREATININE 0.6 mg/dL (0.5-0.9); ESTIMATED GFR > 60; GLUCOSE 176 mg/dL (70-104); POTASSIUM 4.5 mmol/L (3.5-5.1); SODIUM 142 mmol/L (136-145); TCO2 28 mmol/L (25-35)
[2018-07-30] MEDS: SINGULAIR PO SCH (09:50)
[2018-07-30] MEDS: VITAMIN D PO SCH (09:51)
[2018-07-30] MEDS: ZYRTEC PO SCH (09:51)
[2018-07-30] MEDS ORDERED: PERIACTIN PO ONE (13:35)
--- NOTE | 2018-07-30 13:53 | PROGRESS NOTE ---
DATE: 07/30/2018 SUBJECTIVE: The patient has no major complaints. OBJECTIVE: Vitals: Blood pressure 125/82, heart rate of 76, respiratory rate of 16, temperature 98.7 degrees, 98% on Room air. Cardiovascular: Regular rate and rhythm. Pulmonary: Bilateral breath sounds clear to auscultation. GI: Soft, nontender, nondistended. Bowel sounds were positive. Extremities: No clubbing or cyanosis. Lymphatic: No peripheral edema. Neurologic: Nonfocal. DIAGNOSTIC DATA: White count is 3, hemoglobin and hematocrit 12 and 39, platelets 239,000. Basic was normal. C-peptide is low but not high, so there is no endogenous insulin, and I am not sure what her insulin level is, actually low, not abnormal, she is hypoglycemic. PROBLEM LIST: 1. Persistent hypoglycemia. She is not eating, she is refusing to eat. We discussed that we would have to take more aggressive measures such as tube feeding if she did not start to eat. She has been placed on Remeron. I am going to add some Periactin and see how she does. She did order lunch, so she is going to start eating a bit. I am not sure if this is a psychological component. She does describe that she has some dysgeusia, like she just does not have a sense of taste anymore or limited taste, but she is not really on any medications, per se, that would cause issues. 2. Laboratory data really unremarkable. Her insulin level is low. Her C-peptide level is low. Her sugars still maintained in the 90s, though despite D5 infusion. She did have a couple of sugars above 200 though, so I think we will have to work on that. She has not yet gotten any insulin or any antihyperglycemic agents since admission, that is 3 days now. 3. Asthma. Appears to be stable. 4. Possible depression. She is on Remeron. We will add Periactin and follow closely. DISPOSITION: Pending her clinical status. We will continue to follow closely. cc: Roe Olivo MD
[2018-07-30] MEDS: PERIACTIN PO SCH (16:54)
[2018-07-30] MEDS: REMERON PO SCH (21:36)
[2018-07-30] MEDS: HUMALOG (PARKWAY) SUBQ SCH (22:27)
[2018-07-30] MEDS: NS 1,000 ML IV SCH (22:27)
[2018-07-31] MEDS: ZOFRAN IV PRN ×2 (02:53→13:07)
[2018-07-31] MEDS: NS 1,000 ML IV SCH ×3 (05:58→23:19)
[2018-07-31] MEDS: HUMALOG (PARKWAY) SUBQ SCH ×2 (06:15→10:56)
[2018-07-31 07:44] LABS: BASO# 0.01 X1000 (0.0-0.2); BASO% 0.3 % (0.0-0.8); EOS# 0.13 X1000 (0.0-0.7); EOS% 3.3 % (0.0-10.0); HEMATOCRIT 36.9 % (37.0-47.0); HEMOGLOBIN 11.6 g/dL (12.0-16.0); LYMPH# 1.36 X1000 (1.2-3.4); LYMPH% 34.7 % (20.5-51.1); MCH 30.6 PG (27-31); MCHC 31.4 g/dL (33-37); MCV 97.4 FL (81-99); MONO# 0.53 X1000 (0.11-0.59); MONO% 13.5 % (1.7-9.3); MPV 10.6 FL (7.4-10.4); NEUT# 1.89 X1000 (1.4-6.5); NEUT% 48.2 % (42.2-75.2); PLT 224 X1000 (130-400); RBC 3.79 XMIL (4.2-5.4); RDW 14.7 % (11.5-14.5); WBC 3.92 X1000 (4.8-10.8)
[2018-07-31 08:00] LABS: AGAP 7; BUN 8 mg/dL (8-22); CALCIUM 8.8 mg/dL (8.8-10.2); CHLORIDE 107 mmol/L (98-107); COSMO 287; CREATININE 0.6 mg/dL (0.5-0.9); ESTIMATED GFR > 60; GLUCOSE 196 mg/dL (70-104); POTASSIUM 4.3 mmol/L (3.5-5.1); SODIUM 142 mmol/L (136-145); TCO2 28 mmol/L (25-35)
[2018-07-31] MEDS: VITAMIN D PO SCH (08:32)
[2018-07-31] MEDS: PERIACTIN PO SCH ×3 (08:32→18:06)
[2018-07-31] MEDS: SINGULAIR PO SCH (08:33)
[2018-07-31] MEDS: ZYRTEC PO SCH (08:33)
--- NOTE | 2018-07-31 14:53 | PROGRESS NOTE ---
DATE: 07/31/2018 SUBJECTIVE: She is better. She is eating a bit more, although she is kind of refusing to eat. In any case, she seems to be doing a little bit better. She is off of any D5 supplementation and her sugars are doing okay. Her last high sugar was 273, but that was on a D5. She was low at 83 this morning, and then she is 171 this afternoon, but that is on no medications. I am just not sure what kind of medications we are going to use on her. OBJECTIVE: Her vitals are stable. Afebrile 156/90, heart rate 90, respiratory rate 11, temperature 98.7 degrees and 99% on room air.Cardiovascular: Regular rate and rhythm. Pulmonary: Bilateral breath sounds. Clear to auscultation. GI: Soft, nontender, and nondistended. Bowel sounds are positive. ASSESSMENT: 1. Hypoglycemia is improved. We will continue to follow and monitor blood sugars closely. 2. Anorexia. We have put her on some medications to see if we can try to get her appetite stimulated. We need to work on starting getting her up and around. DISPOSITION: Pending her clinical status. I am going to go ahead and try to do a CT because I do not know if she has had any imaging to find out about this. She had a head CT actually when she came in that was negative. She has had a gastric emptying study that was normal. She had an ultrasound which was normal so I am going to pursue abdominal pelvic CT and see how she does. She may need a GI consult at some point. We will continue to follow closely. I think she is stable for the floor. cc: Roe Olivo MD
--- NOTE | 2018-07-31 17:36 | Diag Imaging Result Doc PS360 ---
EXAM: CT ABD/PELVIS W/PO AND IV CON 07/31/2018 HISTORY: weight loss, cachexia, dysphagia TECHNIQUE: This exam was performed using automated exposure control, adjustment of mA or kV according to patient size, and/or use of iterative reconstruction technique. COMMENT: The stomach is not distended. There is mild thickening of the antral mucosa. There is fluid in the left colon. There is no evidence of small bowel dilatation. The aorta is not distended. There is no evidence of significant adenopathy. There are cysts in the kidneys bilaterally. There is no evidence of hydronephrosis. There are no gallstones. The spleen and liver and adrenal glands are within normal limits. The pancreas is unremarkable. Pelvis: There has been previous appendectomy. There is a small amount of free fluid in the cul-de-sac. There has been previous hysterectomy. The urinary bladder is not distended. There are scattered bone islands in the pelvis. No evidence of acute bony disease is present. IMPRESSION: Questionable gastritis. Otherwise no evidence of acute disease. Electronically signed by Farhan Perry 07/31/2018 5:33 PM
[2018-07-31] MEDS: HUMULIN R SUBQ SCH ×2 (17:58→21:21)
[2018-07-31] MEDS: REMERON PO SCH (21:20)
[2018-08-01] MEDS: HUMULIN R SUBQ SCH (06:03)
[2018-08-01] MEDS: HUMULIN R (PARKWAY) SUBQ SCH ×4 (07:07→21:12)
[2018-08-01] MEDS: NS 1,000 ML IV SCH ×2 (07:09→15:41)
[2018-08-01 07:52] LABS: BASO# 0.01 X1000 (0.0-0.2); BASO% 0.3 % (0.0-0.8); EOS# 0.12 X1000 (0.0-0.7); EOS% 3.1 % (0.0-10.0); HEMOGLOBIN 10.8 g/dL (12.0-16.0); LYMPH# 1.29 X1000 (1.2-3.4); LYMPH% 33.9 % (20.5-51.1); MCH 30.5 PG (27-31); MCHC 31.8 g/dL (33-37); MONO# 0.52 X1000 (0.11-0.59); MONO% 13.6 % (1.7-9.3); MPV 10.6 FL (7.4-10.4); NEUT# 1.87 X1000 (1.4-6.5); NEUT% 49.1 % (42.2-75.2); PLT 230 X1000 (130-400); RBC 3.54 XMIL (4.2-5.4); RDW 14.3 % (11.5-14.5); WBC 3.81 X1000 (4.8-10.8)
[2018-08-01 08:12] LABS: AGAP 8; BUN 6 mg/dL (8-22); CALCIUM 8.8 mg/dL (8.8-10.2); CHLORIDE 109 mmol/L (98-107); COSMO 285; CREATININE 0.6 mg/dL (0.5-0.9); ESTIMATED GFR > 60; GLUCOSE 147 mg/dL (70-104); SODIUM 143 mmol/L (136-145); TCO2 26 mmol/L (25-35)
[2018-08-01] MEDS: PERIACTIN PO SCH ×4 (08:14→18:25)
[2018-08-01] MEDS: ZYRTEC PO SCH (08:14)
[2018-08-01] MEDS: SINGULAIR PO SCH (08:15)
[2018-08-01] MEDS: VITAMIN D PO SCH (08:16)
[2018-08-01] MEDS: TYLENOL PO PRN (16:30)
--- NOTE | 2018-08-01 17:57 | PROGRESS NOTE ---
DATE: 08/01/2018 SUBJECTIVE: The patient is doing well. No major complaints. She seems stable. OBJECTIVE: Blood pressure is 117/69, heart rate of 88, respiratory rate 16, temperature 98.7 degrees, 100% on room air. Cardiovascular: Regular rate and rhythm. Pulmonary: Bilateral breath sounds, clear to auscultation. GI was soft, nontender, nondistended. Bowel sounds are positive. LABORATORY DATA: Her sugars are now starting to rise off of anything, although she is not eating at times, but 154, 143, 249 and 361, so I am going to reorder her low-dose Lantus and see how she does. ASSESSMENT AND PLAN: 1. Recurrent hypoglycemia. We are slowly resuming her medications. 2. Relative and anorexia. It looks like she has gastritis on her CT, otherwise negative. We will resume Protonix and see how she does. Carafate, see if that helps stimulate her appetite. She may need a Gastroenterology re-evaluation. 3. Disposition. If we can maintain her sugars in the 200s with her eating somewhat, then I anticipate discharge soon. We just need to communicate well with primary care provider about her 2 admissions now for hypoglycemia. Despite her A1c being elevated, I think the levels of medication she has been on have been a little too much for her, especially when she stops eating, so we will need to continue to follow. cc: Roe Olivo MD
[2018-08-01] MEDS: BASAGLAR SUBQ SCH (18:29)
[2018-08-01] MEDS: PROTONIX IV SCH (18:29)
[2018-08-01] MEDS: SODIUM CHLORIDE 0.9% INJ SCH (18:29)
[2018-08-01] MEDS: REMERON PO SCH (21:10)
[2018-08-01] MEDS: CARAFATE LIQUID PO SCH (21:10)
[2018-08-02] MEDS: CARAFATE LIQUID PO SCH ×4 (02:49→21:39)
[2018-08-02] MEDS: PROTONIX IV SCH ×2 (05:54→16:48)
[2018-08-02] MEDS: LOVENOX SUBQ SCH (05:54)
[2018-08-02] MEDS: HUMULIN R (PARKWAY) SUBQ SCH ×4 (07:41→21:39)
[2018-08-02 08:12] LABS: BASO# 0.01 X1000 (0.0-0.2); BASO% 0.3 % (0.0-0.8); EOS# 0.15 X1000 (0.0-0.7); HEMATOCRIT 34.2 % (37.0-47.0); HEMOGLOBIN 10.9 g/dL (12.0-16.0); LYMPH# 1.23 X1000 (1.2-3.4); MCH 30.4 PG (27-31); MCHC 31.9 g/dL (33-37); MCV 95.3 FL (81-99); MONO# 0.47 X1000 (0.11-0.59); MONO% 12.6 % (1.7-9.3); MPV 10.5 FL (7.4-10.4); NEUT# 1.87 X1000 (1.4-6.5); NEUT% 50.1 % (42.2-75.2); PLT 252 X1000 (130-400); RBC 3.59 XMIL (4.2-5.4); RDW 14.2 % (11.5-14.5); WBC 3.73 X1000 (4.8-10.8)
[2018-08-02 08:57] LABS: AGAP 10; BUN 5 mg/dL (8-22); CALCIUM 8.8 mg/dL (8.8-10.2); CHLORIDE 105 mmol/L (98-107); COSMO 291; CREATININE 0.6 mg/dL (0.5-0.9); ESTIMATED GFR > 60; GLUCOSE 252 mg/dL (70-104); SODIUM 143 mmol/L (136-145); TCO2 28 mmol/L (25-35)
[2018-08-02] MEDS: SINGULAIR PO SCH (09:27)
[2018-08-02] MEDS: ZYRTEC PO SCH (09:27)
[2018-08-02] MEDS: VITAMIN D PO SCH (09:27)
[2018-08-02] MEDS: BASAGLAR SUBQ SCH (09:37)
[2018-08-02] MEDS: PERIACTIN PO SCH ×3 (09:40→16:48)
[2018-08-02] MEDS: SODIUM CHLORIDE 0.9% INJ SCH (16:48)
[2018-08-02] MEDS ORDERED: BASAGLAR SUBQ ONE (17:20)
--- NOTE | 2018-08-02 17:43 | PROGRESS NOTE ---
DATE: 08/02/2018 SUBJECTIVE: The patient has no major complaints. She is eating a little bit. I would not she is eating a ton, 50%, 100%, I think 25% this morning. PROBLEM LIST: 1. Recurrent hypoglycemia in the setting of diabetes which is not well controlled. Her A1c is 9.3 but that is an improvement from 10. In May her A1c was 14 and January it was 11. So, I am not sure what is inducing this kind of glucose issue but in any case, we are slowly adding back her Lantus. She had been on 50 or 60 units. She had been on Ozempic. I bumped up her Lantus to 20 and will see how she does. I mean if she is maintaining in the 200s I think she can go home. We will need to communicate probably verbally with Dr. Leobardo Jenkins so he does not resume her medications because this is the 2nd admission she has for bottoming out and she was on a dextrose infusion for 3 days before we were able to get her sugars back up. 2. Anorexia. She has gastritis on her CT. We put her on Protonix, Carafate. I think GI will need to be set up with her as an outpatient. 3. Disposition. I think if her sugars are stable, home. cc: Roe Olivo MD
[2018-08-02] MEDS: REMERON PO SCH (21:39)
[2018-08-03] MEDS: CARAFATE LIQUID PO SCH ×4 (02:29→20:07)
[2018-08-03] MEDS: PROTONIX IV SCH ×2 (05:33→17:19)
[2018-08-03] MEDS: LOVENOX SUBQ SCH (05:34)
[2018-08-03] MEDS: HUMULIN R (PARKWAY) SUBQ SCH ×5 (06:20→20:07)
[2018-08-03 06:48] LABS: BASO# 0.01 X1000 (0.0-0.2); BASO% 0.2 % (0.0-0.8); EOS# 0.12 X1000 (0.0-0.7); EOS% 2.7 % (0.0-10.0); HEMATOCRIT 36.2 % (37.0-47.0); HEMOGLOBIN 11.7 g/dL (12.0-16.0); IMM GRAN# 0.01 X1000 (0.0-0.04); IMM GRAN% 0.2 % (0.0-0.5); LYMPH# 1.28 X1000 (1.2-3.4); LYMPH% 28.8 % (20.5-51.1); MCH 30.7 PG (27-31); MCHC 32.3 g/dL (33-37); MONO# 0.42 X1000 (0.11-0.59); MONO% 9.4 % (1.7-9.3); MPV 9.7 FL (7.4-10.4); NEUT# 2.61 X1000 (1.4-6.5); NEUT% 58.7 % (42.2-75.2); PLT 261 X1000 (130-400); RBC 3.81 XMIL (4.2-5.4); RDW 14.1 % (11.5-14.5); WBC 4.45 X1000 (4.8-10.8)
[2018-08-03 07:02] LABS: AGAP 8; BUN 9 mg/dL (8-22); CALCIUM 9.2 mg/dL (8.8-10.2); CHLORIDE 104 mmol/L (98-107); COSMO 283; CREATININE 0.6 mg/dL (0.5-0.9); ESTIMATED GFR > 60; GLUCOSE 85 mg/dL (70-104); POTASSIUM 3.8 mmol/L (3.5-5.1); SODIUM 143 mmol/L (136-145); TCO2 32 mmol/L (25-35)
[2018-08-03] MEDS: PERIACTIN PO SCH ×3 (08:24→16:12)
[2018-08-03] MEDS: VITAMIN D PO SCH (08:24)
[2018-08-03] MEDS: SINGULAIR PO SCH (08:24)
[2018-08-03] MEDS ORDERED: BASAGLAR SUBQ SCH ×2 (09:00)
[2018-08-03] MEDS: ZYRTEC PO SCH (09:52)
[2018-08-03] MEDS: SODIUM CHLORIDE 0.9% INJ SCH (17:19)
[2018-08-03] MEDS: REMERON PO SCH (20:07)
--- NOTE | 2018-08-03 22:37 | PROGRESS NOTE ---
DATE: 08/03/2018 SUBJECTIVE: Patient continues to refuse to eat. States her abdomen hurts off and on. PHYSICAL EXAMINATION: Vital Signs: Reviewed. General: She is awake, alert. She is in no distress. HEENT: Normocephalic. Neck: Supple. CARDIOVASCULAR: Regular rate. Chest: Clear. Abdomen: Soft, diffusely tender. More so in the epigastric region. Extremities: Moves all extremities. ASSESSMENT: 1. Recurrent hypoglycemia. Again, patient's blood sugar medications have been decreased secondary to blood sugars being low. This is mainly due to her sporadic eating and drinking. 2. Anorexia. PLAN: We will continue patient in the hospital, continue to adjust insulin. Further orders as needed. cc: Terell Fierro MD
[2018-08-04] MEDS: CARAFATE LIQUID PO SCH ×4 (01:36→23:05)
[2018-08-04] MEDS: PROTONIX IV SCH (05:58)
[2018-08-04] MEDS: LOVENOX SUBQ SCH (05:58)
[2018-08-04] MEDS: HUMULIN R (PARKWAY) SUBQ SCH ×4 (06:09→23:04)
[2018-08-04] MEDS ORDERED: BASAGLAR SUBQ SCH (09:00)
[2018-08-04] MEDS: ZYRTEC PO SCH (09:36)
[2018-08-04] MEDS: SINGULAIR PO SCH (09:36)
[2018-08-04] MEDS: PERIACTIN PO SCH ×4 (09:36→15:10)
[2018-08-04] MEDS: VITAMIN D PO SCH (09:37)
[2018-08-04] MEDS: TYLENOL PO PRN (11:34)
--- NOTE | 2018-08-04 19:53 | PROGRESS NOTE ---
DATE: 08/04/2018 SUBJECTIVE: Patient notes that overall has not really changed. She has not really been drinking or eating. Denies any fevers or chills. PHYSICAL: Vital signs reviewed and stable. She is awake, alert. She is in no current respiratory distress.HEENT: Normocephalic. Neck: Supple. CV: Regular rate. Chest: Clear. Abdomen: Soft diffusely but mildly tender. Extremities: Moves all extremities. ASSESSMENT: 1. Diabetes with recurrent hypoglycemia secondary to sporadic and very poor oral intake. We will decrease her Lantus down to 5 units q.a.m. as her blood sugars have stayed in the upper 90s, low 100s with occasional 200s if she eats. 2. Anorexia continues to be problematic. May need to start Megace if she does not start eating although currently she refusing to eat or drink anything. cc: Terell Fierro MD
[2018-08-04] MEDS: PROTONIX PO SCH (23:05)
[2018-08-04] MEDS: REMERON PO SCH (23:05)
[2018-08-05] MEDS: CARAFATE LIQUID PO SCH ×4 (05:53→22:06)
[2018-08-05] MEDS: LOVENOX SUBQ SCH (05:54)
[2018-08-05] MEDS: PROTONIX PO SCH ×3 (05:54→22:06)
[2018-08-05 06:01] LABS: BASO# 0.01 X1000 (0.0-0.2); BASO% 0.3 % (0.0-0.8); EOS% 2.9 % (0.0-10.0); HEMATOCRIT 35.3 % (37.0-47.0); HEMOGLOBIN 11.2 g/dL (12.0-16.0); LYMPH# 1.34 X1000 (1.2-3.4); LYMPH% 38.8 % (20.5-51.1); MCH 30.2 PG (27-31); MCHC 31.7 g/dL (33-37); MCV 95.1 FL (81-99); MONO# 0.48 X1000 (0.11-0.59); MONO% 13.9 % (1.7-9.3); MPV 10.4 FL (7.4-10.4); NEUT# 1.52 X1000 (1.4-6.5); NEUT% 44.1 % (42.2-75.2); PLT 296 X1000 (130-400); RBC 3.71 XMIL (4.2-5.4); RDW 14.1 % (11.5-14.5); WBC 3.45 X1000 (4.8-10.8)
[2018-08-05 06:15] LABS: AGAP 9; ALBUMIN 3.6 g/dL (3.5-5.0); ALKALINE PHOSPHATASE 69 U/L (32-104); BUN 13 mg/dL (8-22); CALCIUM 8.9 mg/dL (8.8-10.2); CHLORIDE 103 mmol/L (98-107); COSMO 290; CREATININE 0.5 mg/dL (0.5-0.9); ESTIMATED GFR > 60; GLUCOSE 245 mg/dL (70-104); GOT 10 U/L (10-30); GPT 6 U/L (10-36); POTASSIUM 4.1 mmol/L (3.5-5.1); SODIUM 141 mmol/L (136-145); TCO2 29 mmol/L (25-35); TOTAL PROTEIN 6.6 g/dL (6.3-8.3)
[2018-08-05] MEDS: HUMULIN R (PARKWAY) SUBQ SCH ×4 (06:54→22:05)
[2018-08-05] MEDS: VITAMIN D PO SCH (09:07)
[2018-08-05] MEDS: PERIACTIN PO SCH ×3 (09:07→17:59)
[2018-08-05] MEDS: ZYRTEC PO SCH (09:07)
[2018-08-05] MEDS: SINGULAIR PO SCH (09:08)
[2018-08-05] MEDS: BASAGLAR SUBQ SCH (11:28)
[2018-08-05] MEDS: REMERON PO SCH (22:06)
--- NOTE | 2018-08-06 00:56 | PROGRESS NOTE ---
DATE: 08/05/2018 SUBJECTIVE: Patient notes she has not drank. However, blood sugars are much improved. States she has had no appetite and has not eat anything. Again, blood sugars are stable and actually up to the 200s. OBJECTIVE: Vital Signs: Reviewed. general: She is awake, alert. She is in no current respiratory distress. HEENT: Normocephalic. Neck: Supple. Cardiovascular: Regular rate. Chest: Clear. Abdomen: Soft, nondistended. Extremities: Moves all extremities. Neurologic: No changes. ASSESSMENT: 1. Nausea and vomiting. 2. Abdominal pain. 3. Others. PLAN: We will continue patient in the hospital. Continue Lasix for now. Continue supportive care, as it appears that she has pulmonary edema, but not from congestive heart failure given her EF of 61%. cc: Terell Fierro MD
[2018-08-06] MEDS: CARAFATE LIQUID PO SCH ×3 (03:44→14:03)
[2018-08-06] MEDS: HUMULIN R (PARKWAY) SUBQ SCH ×3 (06:01→17:02)
[2018-08-06] MEDS: PROTONIX PO SCH (06:03)
[2018-08-06] MEDS: LOVENOX SUBQ SCH (06:03)
[2018-08-06 07:11] LABS: BASO# 0.01 X1000 (0.0-0.2); BASO% 0.3 % (0.0-0.8); EOS# 0.13 X1000 (0.0-0.7); EOS% 3.9 % (0.0-10.0); HEMATOCRIT 36.3 % (37.0-47.0); HEMOGLOBIN 11.6 g/dL (12.0-16.0); LYMPH# 1.25 X1000 (1.2-3.4); LYMPH% 37.4 % (20.5-51.1); MCH 30.4 PG (27-31); MONO# 0.47 X1000 (0.11-0.59); MONO% 14.1 % (1.7-9.3); NEUT# 1.48 X1000 (1.4-6.5); NEUT% 44.3 % (42.2-75.2); PLT 286 X1000 (130-400); RBC 3.82 XMIL (4.2-5.4); RDW 14.1 % (11.5-14.5); WBC 3.34 X1000 (4.8-10.8)
[2018-08-06] MEDS ORDERED: INSULIN PEN NEEDLES MISC PRN (07:22)
[2018-08-06 08:15] LABS: AGAP 8; ALBUMIN 3.7 g/dL (3.5-5.0); ALKALINE PHOSPHATASE 74 U/L (32-104); BUN 11 mg/dL (8-22); CALCIUM 9.2 mg/dL (8.8-10.2); CHLORIDE 104 mmol/L (98-107); COSMO 289; CREATININE 0.5 mg/dL (0.5-0.9); ESTIMATED GFR > 60; GLUCOSE 207 mg/dL (70-104); GOT 12 U/L (10-30); GPT 6 U/L (10-36); SODIUM 142 mmol/L (136-145); TCO2 30 mmol/L (25-35); TOTAL PROTEIN 6.9 g/dL (6.3-8.3)
[2018-08-06] MEDS: PERIACTIN PO SCH ×2 (09:30→12:14)
[2018-08-06] MEDS: ZYRTEC PO SCH (09:31)
[2018-08-06] MEDS: SINGULAIR PO SCH (09:31)
[2018-08-06] MEDS: BASAGLAR SUBQ SCH (09:31)
[2018-08-06] MEDS: VITAMIN D PO SCH (09:31)
[2018-08-06 17:26] VITALS: BP 103/61
--- NOTE | 2018-08-07 14:23 | DISCHARGE SUMMARY ---
ADMISSION DATE: 07/28/2018 DISCHARGE DATE: 08/06/2018 DIAGNOSES: 1. Diabetes with recurrent hypoglycemia secondary to sporadic and very poor oral intake. 2. Anorexia. DIAGNOSTICS: 1. 07/28/2018, CT of the head reveals no hemorrhage, no mass effect, no visible acute intracranial abnormality. 2. Chest x-ray revealed negative exam. Lungs are well expanded. Heart is not enlarged. Vessels are not distended. There are no infiltrates. No effusion identified. 3. CT of the abdomen and pelvis reveals questionable gastritis, otherwise no evidence of acute disease. 4. Microbiology: Urine culture revealed mixed luis eduardo. HOSPITAL COURSE: Ms. Frank presented to the emergency room with blood sugars in the 30s, reported blood sugars in the 30s. On arrival to the emergency room, her blood sugar was 49. At that time, she was given 3 amps of D50, initiated on a D10 drip. The patient has been experiencing anorexia, only eating 1 meal a day and sometimes just bites with that meal. She was initially placed on a D10 drip slowly, and her Tresiba has been decreased from 50 units daily to 7 units daily. Slowly her appetite has increased and in fact, she was eating 25% to 100% of her meals, eating more than 1 meal a day. Interestingly enough, the patient stated that at times she was not eating, although blood sugars during this time were in the 190s to the mid 200 range. DISCHARGE VITAL SIGNS: Blood pressure is 103/61 with a heart rate of 87, respirations are 20, temperature is 98.5 degrees oral with O2 saturation 100%. DISCHARGE PHYSICAL EXAMINATION: Cardiovascular: Regular rate and rhythm. S1 and S2 appreciated. She has no lower extremity edema. Peripheral pulses are palpable x4 extremities. Pulmonary: Breath sounds are clear. No increased work of breathing noted. Chest rises and falls symmetric with respiration. Gastrointestinal: Abdomen is soft, nontender, nondistended. Bowel sounds in all 4 quadrants. Neurologic: She is alert and oriented x3. DISCHARGE MEDICATIONS: 1. Zyrtec 10 mg p.o. daily. 2. Vitamin D 2000 units p.o. daily. 3. Periactin 4 mg p.o. t.i.d. 4. Flonase 1 spray nasal daily. 5. Basaglar insulin 70 units subcutaneous in the morning. 6. Robaxin 750 mg p.o. t.i.d. p.r.n. 7. Megace 20 mg p.o. b.i.d. 8. Metformin 1000 mg p.o. b.i.d. 9. Reglan 5 mg p.o. before meals. 10. Zofran ODT 4 mg p.o. q.4 hours p.r.n. 11. MiraLAX 17 g p.o. daily p.r.n. FOLLOWUP: She is to follow up with Dr. Jenkins, her primary care physician. She needs to call in the morning and schedule an appointment for the next week. She has been instructed to call to be seen sooner or return to the ER for any syncope, dizziness, chest pain, palpitations, blood sugars that are 100 or less, any nausea, vomiting, diarrhea, constipation, black or bloody vomitus or stools, any hematuria, dysuria, frequency, urgency, temperature greater than 101 or any questions or concerns that she may have. She is being just discharged home in stable condition with family members. TIME SPENT: This is a greater than 30 minute discharge. Dictated by FLAVIA Muhammad for Terell Fierro MD cc: FLAVIA Muhammad MD
--- NOTE | 2018-08-07 18:05 | DISCHARGE SUMMARY ---
ADMISSION DATE: 07/28/2018 DISCHARGE DATE: 08/06/2018 ADDENDUM TO DISCHARGE SUMMARY: Patient seen and examined by myself. Full note dictated and discussed with nurse practitioner. Patient presented to the hospital with abdominal pain, nausea. Subsequently diagnosed with hypoglycemia. She is taking oral antihyperglycemics, but frequently does not eat. Thankfully, she had an uneventful hospital course. Appetite is still poor. Therefore, we will discharge her home on Reglan and calcium. Discussed with patient if her symptoms do not improve, she will need to follow up outpatient with GI for endoscopy. cc: Terell Fierro MD
== END 2018-08-06 20:01 | disposition home or self-care (01) | DRG 638 ==
LOC: P.ED 08:48 → P.EDIPHOLD 14:58 → SUATTDRO 14:58 → P.ICU 18:30 → P.MEDSURG 07-31 15:38
PROVIDERS: ATTEND Family Medicine
CPT/HCPCS: 70450; 71010; 71045; 74177; 80048; 80053; 81001; 82948; 83036; 83525; 83735; 84681; 85025; 87088; 96365; 96366; 96375; 96376; 99285; A9270; C9113; J1650; J1815; J2405; J7030; J7042; Q9967; S0164; XXXXX

== ENCOUNTER 2018-10-08 18:41 | Inpatient (IN) ==
[2018-10-08 19:10] LABS: BLOOD TYPE ARTERIAL; SAMPLE BLOOD
[2018-10-08 19:11] LABS: BE -8.3 mmoll (-3.0-3.0); HCO3-(ACT) 18.4 mmoll (20.0-26.0); METHB 1.3 % (0.0-1.5); O2(CT) 19.8 mL/dL (15.0-23.0); O2HB 95.6 % (95.0-99.0); PO2(98.6) 99 mmHg (60-100); THB 14.7 g/dL (11.5-17.4)
[2018-10-08] MEDS ORDERED: NS 1,000 ML IV ONE ×2 (19:14→21:28)
[2018-10-08] MEDS ORDERED: HUMULIN R IV ONE ×2 (19:14→21:02)
[2018-10-08 19:16] LABS: pH(98.6) 7.33 (7.35-7.45)
[2018-10-08 19:17] LABS: ALLEN TEST YES; MODALITY ROOM AIR; PCO2(98.6) 31 mmHg (35-45)
[2018-10-08] MEDS ORDERED: HUMULIN R (PARKWAY) ONE ×2 (19:40→21:19)
[2018-10-08 19:47] LABS: BILIRUBIN URINE NEGATIVE (NEGATIVE); BLOOD URINE NEGATIVE (NEGATIVE); KETONE URINE 3+(Large) mg/dL (NEGATIVE); LEUKOCYTES URINE NEGATIVE (NEGATIVE); NITRITE URINE NEGATIVE (NEGATIVE); PROTEIN URINE TRACE mg/dL (NEGATIVE); UROBILINOGEN URINE NORMAL
[2018-10-08 19:48] LABS: CLARITY CLEAR (CLEAR); COLOR YELLOW
[2018-10-08 20:06] LABS: URINE BACTERIA 4+ /HFP; URINE CRYSTAL NONE SEEN /HPF; URINE EPITHELIAL CELLS >10 /HPF (<10); URINE YEAST NONE SEEN /HPF
[2018-10-08 20:08] LABS: URINE SOURCE CLEAN CATCH
[2018-10-08 20:11] LABS: ESTIMATED GFR > 60
[2018-10-08 20:14] LABS: BASO# 0.01 X1000 (0.0-0.2); BASO% 0.2 % (0.0-0.8); EOS# 0.02 X1000 (0.0-0.7); EOS% 0.4 % (0.0-10.0); HEMOGLOBIN 13.8 g/dL (12.0-16.0); LYMPH# 1.87 X1000 (1.2-3.4); MCH 29.4 PG (27-31); MCHC 33.7 g/dL (33-37); MCV 87.4 FL (81-99); MONO# 0.47 X1000 (0.11-0.59); MONO% 8.8 % (1.7-9.3); MPV 10.5 FL (7.4-10.4); NEUT# 2.98 X1000 (1.4-6.5); NEUT% 55.6 % (42.2-75.2); PLT 266 X1000 (130-400); RBC 4.69 XMIL (4.2-5.4); RDW 16.3 % (11.5-14.5); WBC 5.35 X1000 (4.8-10.8)
[2018-10-08 20:20] LABS: AGAP 20; ALBUMIN 4.3 g/dL (3.5-5.0); ALKALINE PHOSPHATASE 89 U/L (32-104); BUN 14 mg/dL (8-22); CALCIUM 9.8 mg/dL (8.8-10.2); CHLORIDE 92 mmol/L (98-107); COSMO 290; CREATININE 0.9 mg/dL (0.5-0.9); GOT 11 U/L (10-30); GPT 8 U/L (10-36); POTASSIUM 4.5 mmol/L (3.5-5.1); SODIUM 129 mmol/L (136-145); TCO2 17 mmol/L (25-35); TOTAL PROTEIN 7.6 g/dL (6.3-8.3)
[2018-10-08 20:23] LABS: GLUCOSE 658 mg/dL (70-104)
[2018-10-08 20:31] LABS: HEMOGLOBIN A1C 15.3 % (4.8-6.0)
--- NOTE | 2018-10-08 21:20 | PROVIDER DOCUMENTATION ---
This chart was entered by April Malcolm Scribe, acting as scribe for Roni Butler MD. HPI-General Adult - General Chief Complaint: High Blood Sugar Stated Complaint: WEAKNESS Time Seen by Provider: 10/08/18 19:04 Source: patient Allergies/Adverse Reactions: Patient Allergies Allergy/AdvReac Type Severity Reaction Status Date / Time ceftriaxone sodium * Allergy SHORTNESS Verified 04/07/18 12:47 [From Rocephin] OF BREATH lisinopril Allergy SWELLING Verified 07/11/18 15:07 shellfish derived Allergy ANAPHYLAXIS Verified 06/17/18 09:58 aspirin AdvReac NAUSEA Verified 04/07/18 12:47 Home Medications: Home Medication List Medication Instructions Recorded Confirmed Last Taken Type Cetirizine HCl [Zyrtec] 10 mg PO DAILY 10/31/13 07/29/18 07/28/18 07:00 History Montelukast [Singulair] 10 mg PO DAILY 10/31/13 07/29/18 07/28/18 History Albuterol Sulfate [Albuterol 1 - 2 puff IH 3-4XDAY PRN PRN #1 04/18/14 07/29/18 12/22/14 08:00 Rx Sulfate Hfa] [email or web address] Methocarbamol [Robaxin-750] 750 mg PO TID PRN PRN #30 tablet 04/18/14 07/29/18 12/22/14 08:00 Rx Insulin Regular, Human [Novolin R] 100 unit IJ DIRECTED #1 vial 11/01/17 07/29/18 Unknown Rx Cholecalciferol (Vit D3) [Vitamin 2,000 unit PO DAILY #120 tab 02/11/18 07/29/18 07/28/18 07:00 Rx D3] Epinephrine 0.3 mg IJ PRN PRN 06/17/18 07/29/18 Unknown History Fluticasone 50 Mcg Nasal [place] 1 spray AKIRA DAILY PRN 06/17/18 07/29/18 07/28/18 07:00 History [Flonase] Metformin [Glucophage] 1,000 mg PO BID 06/17/18 07/29/18 07/28/18 History Ondansetron Odt [Zofran Odt] 4 mg PO Q4H PRN #25 tab 06/17/18 07/29/18 Unknown Rx Polyethylene Glycol 3350 [Miralax] 17 gm PO TID PRN 06/17/18 07/29/18 07/28/18 History Doxycycline Hyclate 100 mg PO BID 07/11/18 07/29/18 Unknown History Insulin Degludec [Tresiba 7 units SQ DAILY #1 insuln.pen 08/06/18 07/29/18 Unknown Rx Flextouch U-100] Megestrol Acetate [Megace] 20 mg PO BID #60 tab 08/06/18 Unknown Rx Metoclopramide HCl [Reglan] 5 mg PO AC #90 tab 08/06/18 Unknown Rx - History of Present Illness -Gen Adult Nature of Presenting Problems: 52 yof c/o high blood sugar. pt sts she has had trouble controlling blood sugar, no appetite and weakness. fsbs in er is 449 but pt sts has got up to 600. pt sts she follows diabetic diet and has been taking rx and insulin regularly.pt followed by dr. roche and sts she has been to dr recently for similar symptoms. pt has hx of dm and asthma. Onset/Duration: reports: just prior to arrival Timing: reports: still present - Diabetes Related Context Context: reports: high blood sugar Review of Systems - Adult - REVIEW OF SYSTEMS - ADULT Constitutional: reports: see HPI, other (weakness) Eyes: reports: no symptoms reported Ears, Nose, Mouth & Throat: reports: no symptoms reported Cardiovascular: reports: no symptoms reported Respiratory: reports: no symptoms reported Gastrointestinal: reports: see HPI, poor appetite. denies: diarrhea, nausea, vomiting Genitourinary: reports: no symptoms reported Musculoskeletal: reports: no symptoms reported Integumentary: reports: no symptoms reported Neurological: reports: no symptoms reported Psychiatric: reports: no symptoms reported Endocrine: reports: see HPI, other (high blood sugar.). denies: excessive sweating, increased thirst, polyuria Hematologic/Lymphatic: reports: no symptoms reported Allergic/Immunologic: reports: no symptoms reported All Other Systems: Reviewed and Negative Past History - Adult - PAST MEDICAL HISTORY-ADULT Review of Records: reports: Old Records Reviewed, Nursing Assessment Review, Medications Reviewed, Social history reviewed & non-contributory. Major Childhood Illnesses: reports: denies history Cardiovascular: reports: denies history Respiratory: reports: asthma Gastrointestinal: reports: denies history Obstetrical/Gynecological: reports: denies history Genitourinary: reports: denies history Musculoskeletal: reports: chronic pain (back), neck/back injury Neurological: reports: headaches/migraines Endocrine/Immune: reports: Diabetes Other Conditions: reports: denies history, MRSA - PRIOR SURGERIES/PROCEDURES Surgical/Procedure History: reports: appendectomy, hysterectomy, BTL - IMMUNIZATION STATUS Childhood Immunizations: See Nurse Assessment Flu Vaccine: See Nurse Assessment - FAMILY HISTORY Family History: reviewed, not pertinent - SOCIAL HISTORY Smoking: non-smoker Substance Use: none/never Physical Exam-General - PHYSICAL EXAM-ADULT Initial Vital Signs Reviewed: Yes - CONSTITUTIONAL General Appearance: appears well, alert, no apparent distress - EYES Eyes: PERRL/EOMI, pink conjunctivae - HEAD, EARS, NOSE, MOUTH & THROAT HENMT: normocephalic/atraumatic, moist mucous membranes, normal ENT inspection - NECK Neck: non-tender, full range of motion, supple, normal inspection - RESPIRATORY Respiratory: chest non-tender, lungs clear, normal breath sounds - CARDIOVASCULAR Cardiovascular: normal peripheral pulses, regular rate, rhythm - GASTROINTESTINAL (ABDOMEN) Abdominal Exam: normal bowel sounds, non tender, soft - LYMPHATIC Lymphatic: no adenopathy - MUSCULOSKELETAL Back Exam: normal inspection, no CVA tenderness, no vertebral tenderness Extremity: normal range of motion, non-tender, normal inspection Peripheral Pulses: radial (R): 2+, radial (L): 2+ - SKIN Integumentary: normal color, normal turgor, warm/dry - NEUROLOGIC Neurologic: grossly normal, no motor/sensory deficits - PSYCHIATRIC Psych/Mental Status: normal mood/affect, normal thought content, normal thought process, oriented x 3 Progress - PLAN OF CARE/RESULTS Progress/Plan/Lab Results: Vital Signs - 8 hr 10/08/18 18:45 Temperature 98.5 F Pulse Rate 111 H Respiratory Rate 18 Blood Pressure 120/88 O2 Sat by Pulse Oximetry 100 Orders Category Date Time Status Saline Loc NOW Care 10/08/18 18:54 Active A1C HGB W EST AVG GLUCOSE [CHEM] Stat Lab 10/08/18 18:53 Ordered ABG [RESP] Routine Lab 10/08/18 18:53 Ordered ACETONE SERUM [CHEM] Stat Lab 10/08/18 18:53 Ordered CBC WITH DIFF [HEME] Stat Lab 10/08/18 18:53 Ordered COMPREHENSIVE METABOLIC PANEL [CHEM] Stat Lab 10/08/18 18:53 Uncollected ua [URINALYSIS PL W/POSS RFLX CULT] [URINALYSIS] Stat Lab 10/08/18 18:54 Uncollected Result Diagrams: 10/08/18 19:35 10/08/18 19:35 - EKG 1 Time of EKG reading by physician:: 19:03 EKG Read and Signed by:: Roni Butler EKG Interpretation (*Must complete 3 of following elements*): Abnormal (borderline) Rate: 103 (right atrial enlargement ) Rhythm: ST [place]: normal QRS: normal - CONSULTS/PCP/HOSPITALIST Notification #1 *Consult/PCP/Hospitalist*: Dr Olivo Time Discussed: 21:17 Consult Disposition: Admit Departure - Departure Date of Disposition Decision: 10/08/18 Time of Disposition Decision: 21:18 DIAGNOSIS: Hyperglycemia, Weakness Disposition: ADMITTED INPATIENT 09 Certified Medical Emergency: Emergent Condition: Fair Referrals and Follow-Ups: None,PCP [Primary Care Provider] - - Critical Care Note This patient required my direct & personal management of CC.: No Attestation - Physician/ SHAW Attestation Patient care was provided by Advanced Practice Provider:: No The physician spent face to face time with patient:: Yes Advanced Practice Provider documentation review:: Supervising physician onsite and consulted in the evaluation and care of this patient. The physician did have a face to face encounter with the patient. This chart was documented by the indicated scribe, (April Malcolm Scribe) and accurately reflects the services I performed and decisions made by me, Roni Butler MD, as attested by the provider's signature.
[2018-10-08] MEDS ORDERED: ZOFRAN ODT PO PRN (21:28)
[2018-10-08] MEDS ORDERED: D50W SYRINGE IV ONE (21:28)
[2018-10-08] MEDS ORDERED: D50W SYRINGE IV PRN (21:34)
[2018-10-09 06:20] VITALS: BP 109/62
[2018-10-09] MEDS: HUMALOG (PARKWAY) SUBQ SCH ×2 (06:23→12:30)
[2018-10-09] MEDS ORDERED: TYLENOL PO PRN (09:00)
[2018-10-09] MEDS ORDERED: ZOFRAN IV PRN (09:00)
[2018-10-09] MEDS ORDERED: NS 1,000 ML IV SCH (09:00)
[2018-10-09] MEDS ORDERED: LOVENOX SUBQ SCH (09:00)
[2018-10-09] MEDS ORDERED: ROBAXIN PO PRN (09:09)
[2018-10-09] MEDS ORDERED: ALBUTEROL NEB INH PRN (09:09)
[2018-10-09] MEDS ORDERED: PRINIVIL PO SCH (09:15)
[2018-10-09] MEDS ORDERED: ZYRTEC PO SCH (09:15)
[2018-10-09] MEDS ORDERED: VITAMIN D PO SCH (09:15)
[2018-10-09] MEDS ORDERED: INSULIN PEN NEEDLES MISC PRN (09:28)
[2018-10-09 09:40] LABS: BASO# 0.01 X1000 (0.0-0.2); BASO% 0.2 % (0.0-0.8); EOS# 0.04 X1000 (0.0-0.7); EOS% 0.8 % (0.0-10.0); HEMATOCRIT 37.6 % (37.0-47.0); HEMOGLOBIN 12.9 g/dL (12.0-16.0); LYMPH# 1.99 X1000 (1.2-3.4); LYMPH% 38.9 % (20.5-51.1); MCH 29.8 PG (27-31); MCHC 34.3 g/dL (33-37); MCV 86.8 FL (81-99); MONO# 0.54 X1000 (0.11-0.59); MONO% 10.5 % (1.7-9.3); MPV 9.5 FL (7.4-10.4); NEUT# 2.54 X1000 (1.4-6.5); NEUT% 49.6 % (42.2-75.2); PLT 284 X1000 (130-400); RBC 4.33 XMIL (4.2-5.4); RDW 16.3 % (11.5-14.5); WBC 5.12 X1000 (4.8-10.8)
[2018-10-09 10:05] LABS: AGAP 9; ALBUMIN 3.8 g/dL (3.5-5.0); ALKALINE PHOSPHATASE 68 U/L (32-104); BUN 11 mg/dL (8-22); CHLORIDE 106 mmol/L (98-107); CK TOTAL 28 U/L (24-173); COSMO 278; CREATININE 0.6 mg/dL (0.5-0.9); ESTIMATED GFR > 60; GLUCOSE 185 mg/dL (70-104); GOT 10 U/L (10-30); GPT 6 U/L (10-36); MAGNESIUM 1.6 mg/dL (1.5-2.7); POTASSIUM 3.8 mmol/L (3.5-5.1); SODIUM 137 mmol/L (136-145); TCO2 22 mmol/L (25-35); TOTAL PROTEIN 6.7 g/dL (6.3-8.3)
[2018-10-09] MEDS: TRESIBA FLEXTOUCH U-100 SUBQ SCH ×2 (12:15→12:29)
[2018-10-09] MEDS ORDERED: PERIACTIN PO SCH (13:00)
[2018-10-09] MEDS ORDERED: REGLAN PO SCH (13:00)
--- NOTE | 2018-10-09 13:55 | HISTORY AND PHYSICAL ---
PRIMARY CARE PROVIDER: Dr. Leobardo Jenkins. CHIEF COMPLAINT: Excessive urination. Excessive thirst. Elevated blood sugar. Feeling tired. HISTORY OF PRESENT ILLNESS: Ms. Katharina Frank is a 52-year-old female with a medical history of type 1 diabetes mellitus with history of having DKA. Also, with asthma. She presents to the emergency department with at least three days of excessive urination and thirst along with feeling overly fatigued, some nausea, and mild abdominal discomfort. She states that she has been going to her primary care provider, who she last saw on 09/30/2018 and at that time had a blood glucose of over 600. Apparently, her blood glucose levels have been running in the 600s over the last three weeks, according to her. She states that they do not do anything about it because of the fear of her having low blood glucose levels. She denies running out of her medication. She takes it as prescribed, which includes Ozempic that she takes every Friday, the metformin that she takes twice a day, and Tresiba that she takes every morning. She says she has not run out of any of it. Her blood glucose level here, on presentation, was 658. She has been started on a moderate sliding scale insulin with q four hour blood glucose level checks. She is much more stable with that now. There is also a question of whether she had a history of hypothyroidism, but her TSH and T4 is normal and she is not on any Synthroid at home. Her hemoglobin A1c is 15.3, so she is very uncontrolled with her diabetes. PAST MEDICAL HISTORY: 1. Diabetes mellitus, type 1. 2. Asthma. SURGICAL HISTORY: 1. Appendectomy. 2. Hysterectomy. 3. Bilateral tubal ligation. SOCIAL HISTORY: Denies tobacco, alcohol, or illicit drug use. 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 She also lives with her mother and her two daughters. 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 She has one that is autistic and two that are , and essentially one of the children was born in [place], who apparently does not have a certificate, social security, or anything, apparently the parents were sent back to [place], according to her. So, she has a lot of stress in her life with fostering all of these children and fails to take care of herself in the meantime. FAMILY HISTORY: Mother with breast cancer, stroke, coronary disease, and diabetes. On father's side is diabetes and coronary artery disease. ALLERGIES: 1. Rocephin causes shortness of breath. 2. Lisinopril causes swelling. 3. Shellfish causes anaphylaxis. 4. Aspirin causes GI bleeding. HOME MEDICATIONS: 1. Singulair 10 mg p.o. nightly. 2. Albuterol. 3. Epinephrine injection, if needed. 4. Metformin 500 mg p.o. twice daily. 5. Lisinopril 2.5 mg p.o. daily. 6. Naproxen 500 mg p.o. twice daily. 7. Ozempic every Friday. 8. Periactin 4 mg p.o. t.i.d. 9. Reglan 5 mg p.o. t.i.d. 10.Tresiba 80 units subcutaneously daily. 11.Vitamin D3, 2000 units p.o. daily. 12.Zyrtec 10 mg p.o. daily. 13.Megace 20 mg p.o. twice daily. 14.Robaxin 750 mg p.o. t.i.d. REVIEW OF SYSTEMS: A 14-point review of systems are complete and all were negative except for those mentioned above in HPI. She does have decreased appetite as well. PHYSICAL EXAMINATION: VITAL SIGNS: Temperature 98.1, heart rate 84, respiratory rate 16, blood pressure 109/62, O2 saturation 100% on room air. GENERAL: Ms. Katharina Frank is a 52-year-old female. She is in no acute distress. She is able to answer questions appropriately. HEENT: Atraumatic, normocephalic. Pupils equal, round, reactive to light. Extraocular movements intact. Mucous membranes are dry. NECK: Trachea midline. CARDIOVASCULAR: S1, S2. Regular rate and rhythm. No rubs, gallops, murmurs. No lower extremity edema. +2 dorsalis and radial pulses. Negative JVD or carotid bruits. PULMONARY: Clear to auscultate. Bilateral breath sounds. No accessory muscle use or work of breathing noted. GASTROINTESTINAL: Soft, nontender, nondistended, positive bowel sounds x4. EXTREMITIES: Moves all extremities equally with full range of motion. NEUROLOGIC: Alert and oriented x3. Follows commands. Sensory is intact. SKIN: Warm, dry, intact. LABORATORY DATA: White blood cells 5000. Hemoglobin 12. Hematocrit 37. Platelet count 284. Sodium 137. Potassium 3.8. BUN 11. Creatinine 0.6. Glucose 185. Hemoglobin A1c is 15.3. Calcium 9.0. Magnesium 1.6. Bilirubin 0.30. AST 10. ALT 6. CK 28. Troponin less than 0.01. Albumin 3.8. Triglycerides 78. Total cholesterol 200. Serum lactate 0.7. TSH 1.8. Free T4 is 0.96. IMAGING: EKG: Sinus tachycardia with rate of 103. QTc 476. ASSESSMENT AND PLAN: 1. Diabetes mellitus, type 1, with hyperglycemia. She was not in diabetic ketoacidosis. Started on an every four hour sliding scale insulin, moderate. Started her back on her Tresiba. Blood glucose levels are much better controlled now. May can possibly even be discharged back home today. 2. Asthma. No exacerbation. She does have nebulizer for that. 3. She does NOT have hypothyroidism. TSH and T4 is normal and she has not been on any medications for it. 4. Deep venous thrombosis prophylaxis. Lovenox. Dictated by FLAVIA Phillips for Roe Olivo MD cc: FLAVIA Phillips MD
[2018-10-09] MEDS ORDERED: MEGACE PO SCH (21:00)
[2018-10-09] MEDS ORDERED: GLUCOPHAGE PO SCH (21:00)
[2018-10-09] MEDS ORDERED: SINGULAIR PO SCH (21:00)
--- NOTE | 2018-10-10 14:42 | DISCHARGE SUMMARY ---
ADMISSION DATE: 10/08/2018 DISCHARGE DATE: 10/09/2018 DISCHARGE DIAGNOSES: 1. Hyperglycemia related to brittle diabetes type 1. 2. Asthma. 3. Generalized weakness. HOSPITAL COURSE: Briefly, the patient was placed in the hospital because she was weak and her blood sugar was over 600. She denies any issues now. She has had hypoglycemia issues but her sugars are very high and now they have normalized and they certainly have not been hypoglycemic. She has had issues with that in the past but her sugars have improved with treatment. I would just continue her current regimen. Her last sugar had come down to 204, was 170 but before that 277 so overall improved. DISCHARGE MEDICATIONS: Singulair 10 daily, duo nebs inhaled q.6, epinephrine p.r.n., Glucophage 500 b.i.d., lisinopril 2.5 daily, Naprosyn 500 b.i.d., Ozempic 0.5 weekly, Periactin 4 t.i.d., Reglan 5 t.i.d., Tresiba 80 daily, vitamin D3 2000 units daily, Zyrtec 10 daily, Megace 20 b.i.d., Robaxin 750 t.i.d. p.r.n. Discharge condition stable. Please follow up with PCP is I think Gregory and follow closely. This is an observation discharge. cc: Roe Olivo MD
--- NOTE | 2018-10-12 15:28 | EKG Report ---
Test Performed on : 10/08/2018 7:03:12 PM Test Reason : ER Blood Pressure : / mmHG Vent. Rate : 103 BPM Atrial Rate : 103 BPM P-R Int : 112 ms QRS Dur : 098 ms QT Int : 364 ms P-R-T Axes : 075 080 056 degrees QTc Int : 476 ms Sinus tachycardia. Right atrial enlargement Borderline ECG When compared with ECG of 11-JUL-2018 13:42, ST no longer elevated in Inferior leads Nonspecific T wave abnormality no longer evident in Lateral leads Unconfirmed Result
== END 2018-10-09 13:31 | disposition home or self-care (01) | DRG 638 ==
LOC: P.ED 18:41 → P.MEDSURG 22:25
PROVIDERS: ATTEND Internal Medicine
CPT/HCPCS: 80053; 80061; 81001; 82009; 82550; 82746; 82805; 82948; 83036; 83605; 83721; 83735; 84439; 84443; 84484; 85025; 85651; 86038; 86039; 86140; 87088; 93005; 94640; 94761; A9270; J1650; J1815; J7030; XXXXX

== ENCOUNTER 2018-10-23 07:14 | Inpatient (IN) ==
[2018-10-23 07:37] LABS: BASO# 0.02 X1000 (0.0-0.2); BASO% 0.3 % (0.0-0.8); EOS# 0.01 X1000 (0.0-0.7); EOS% 0.1 % (0.0-10.0); HEMATOCRIT 49.5 % (37.0-47.0); HEMOGLOBIN 16.5 g/dL (12.0-16.0); IMM GRAN# 0.02 X1000 (0.0-0.04); IMM GRAN% 0.3 % (0.0-0.5); LYMPH# 2.07 X1000 (1.2-3.4); LYMPH% 29.3 % (20.5-51.1); MCH 29.5 PG (27-31); MCHC 33.3 g/dL (33-37); MCV 88.6 FL (81-99); MONO# 0.45 X1000 (0.11-0.59); MONO% 6.4 % (1.7-9.3); NEUT# 4.49 X1000 (1.4-6.5); NEUT% 63.6 % (42.2-75.2); PLT 346 X1000 (130-400); RBC 5.59 XMIL (4.2-5.4); RDW 17.8 % (11.5-14.5); WBC 7.06 X1000 (4.8-10.8)
[2018-10-23] MEDS ORDERED: NS 1,000 ML IV ONE (07:37)
[2018-10-23] MEDS ORDERED: TYLENOL PO ONE (07:41)
--- NOTE | 2018-10-23 07:44 | PROVIDER DOCUMENTATION ---
HPI-General Adult - General Chief Complaint: High Blood Sugar Stated Complaint: elevated blood sugar Time Seen by Provider: 10/23/18 07:36 Source: patient Allergies/Adverse Reactions: Patient Allergies Allergy/AdvReac Type Severity Reaction Status Date / Time ceftriaxone sodium * Allergy SHORTNESS Verified 10/23/18 07:36 [From Rocephin] OF BREATH shellfish derived Allergy ANAPHYLAXIS Verified 10/23/18 07:36 aspirin AdvReac NAUSEA Verified 10/23/18 07:36 Home Medications: Home Medication List Medication Instructions Recorded Confirmed Last Taken Type Cetirizine HCl [Zyrtec] 10 mg PO DAILY 10/31/13 10/23/18 07/28/18 07:00 History Methocarbamol [Robaxin-750] 750 mg PO TID PRN PRN #30 tablet 04/18/14 10/23/18 12/22/14 08:00 Rx Epinephrine 0.3 mg IM PRN PRN 06/17/18 10/23/18 Unknown History Metformin [Glucophage] 2 tab PO BID 06/17/18 10/23/18 07/28/18 History Albuterol Sulfate 1.25 mg INHALATION Q6-8H PRN PRN 10/09/18 10/23/18 Unknown History Cholecalciferol (Vitamin D3) 2,000 unit PO DAILY 10/09/18 10/23/18 Unknown History [Vitamin D3] Insulin Degludec [Tresiba 80 unit SQ DAILY 10/09/18 10/23/18 Unknown History Flextouch U-100] Montelukast [Singulair] 10 mg PO QHS 10/09/18 10/23/18 Unknown History Semaglutide [Ozempic] 1 mg SQ DIRECTED 10/09/18 10/23/18 Unknown History - History of Present Illness -Gen Adult Nature of Presenting Problems: weak urinary frequency for a week losing weight Location of Pain/Injury: reports: none Pain Radiation: reports: no radiation Quality of Pain: reports: none Severity: reports: moderate Onset/Duration: reports: 1 week ago Timing: reports: still present Context/Activities at Onset: reports: none Modifying Factors: improves with: nothing Associated Symptoms: reports: fatigue, loss of appetite, malaise, weakness. denies: chest pain, diarrhea, vomiting Similar Symptoms Previously?: Yes Recently seen or treated by another doctor?: Yes - Diabetes Related Context Context: reports: high blood sugar Review of Systems - Adult - REVIEW OF SYSTEMS - ADULT Constitutional: reports: weight loss Eyes: reports: blurred vision Ears, Nose, Mouth & Throat: reports: no symptoms reported Cardiovascular: reports: no symptoms reported Respiratory: reports: no symptoms reported Gastrointestinal: reports: no symptoms reported Genitourinary: reports: frequency Musculoskeletal: reports: muscle weakness Integumentary: reports: no symptoms reported Neurological: reports: no symptoms reported Psychiatric: reports: no symptoms reported Endocrine: reports: increased thirst, polyuria Hematologic/Lymphatic: reports: no symptoms reported Allergic/Immunologic: reports: no symptoms reported Past History - Adult - PAST MEDICAL HISTORY-ADULT Review of Records: reports: Nursing Assessment Review, Medications Reviewed, Social history reviewed & non-contributory. Major Childhood Illnesses: reports: denies history Cardiovascular: reports: denies history Respiratory: reports: asthma Gastrointestinal: reports: denies history Obstetrical/Gynecological: reports: denies history Genitourinary: reports: denies history Musculoskeletal: reports: chronic pain (back), neck/back injury Neurological: reports: headaches/migraines Endocrine/Immune: reports: Diabetes Other Conditions: reports: denies history, MRSA - PRIOR SURGERIES/PROCEDURES Surgical/Procedure History: reports: appendectomy, hysterectomy, BTL - IMMUNIZATION STATUS Childhood Immunizations: See Nurse Assessment Flu Vaccine: See Nurse Assessment - FAMILY HISTORY Family History: reviewed, not pertinent Physical Exam-General - PHYSICAL EXAM-ADULT Initial Vital Signs Reviewed: Yes - CONSTITUTIONAL General Appearance: appears well, mild distress - EYES Eyes: PERRL/EOMI, pink conjunctivae - HEAD, EARS, NOSE, MOUTH & THROAT HENMT: normocephalic/atraumatic - NECK Neck: non-tender, full range of motion, supple - RESPIRATORY Respiratory: lungs clear - CARDIOVASCULAR Cardiovascular: regular rate, rhythm - GASTROINTESTINAL (ABDOMEN) Abdominal Exam: soft - LYMPHATIC Lymphatic: no adenopathy - MUSCULOSKELETAL Back Exam: normal inspection, no CVA tenderness Extremity: normal range of motion, non-tender - SKIN Integumentary: normal color, normal turgor - NEUROLOGIC Neurologic: grossly normal - PSYCHIATRIC Psych/Mental Status: oriented x 3 Progress - PLAN OF CARE/RESULTS Progress/Plan/Lab Results: Vital Signs - 8 hr 10/23/ 07:16 Temperature 98.4 F Pulse Rate 103 H Respiratory Rate 18 Blood Pressure 144/102 O2 Sat by Pulse Oximetry 98 Laboratory Results - last 24 hr 10/23/18 10/23/18 07:21 07:25 WBC 7.06 RBC 5.59 H Hgb 16.5 H Hct 49.5 H MCV 88.6 MCH 29.5 MCHC 33.3 RDW Std Deviation 17.8 H Plt Count 346 MPV 10.0 Immature Gran % (Auto) 0.3 Neut % (Auto) 63.6 Lymph % (Auto) 29.3 [place] % (Auto) 6.4 Eos % (Auto) 0.1 Baso % (Auto) 0.3 Immature Gran # (Auto) 0.02 Neut # (Auto) 4.49 Lymph # (Auto) 2.07 [place] # (Auto) 0.45 Eos # (Auto) 0.01 Baso # (Auto) 0.02 POC Glucose 338 H D Orders Category Date Time Status Finger Stick Blood Sugar (ED) DIRECTED Care 10/23/18 07:23 Active Orthostatic Vital Signs NOW Care 10/23/18 07:38 Ordered A1C [A1C HGB W EST AVG GLUCOSE] [CHEM] Stat Lab 10/23/18 07:37 Ordered CBC WITH DIFF [HEME] Stat Lab 10/23/18 07:25 Results COMPREHENSIVE METABOLIC PANEL [CHEM] Stat Lab 10/23/18 07:[address] W/POSS RFLX CULT [URINALYSIS] Stat Lab 10/23/18 07:24 Uncollected Ns 1000 ml IV Bolus X1 Med 10/23/18 07:37 Ordered 0.9% Sodium Chloride Inj [Ns] 1,000 ml IV 999 mls/hr Result Diagrams: 10/23/18 07:25 10/23/18 08:50 Departure - Departure Date of Disposition Decision: 10/23/18 Time of Disposition Decision: 10:08 DIAGNOSIS: Diabetic ketoacidosis Disposition: ADMITTED INPATIENT 09 Certified Medical Emergency: Emergent Condition: Serious - Critical Care Note This patient required my direct & personal management of CC.: Yes Total Time (mins): 30 Critical Care Statement: This patient required my direct personal management to treat or rule out processes, the absence of which, could potentiallly result in sudden, clinically significant life or limb threatening deterioration. Attestation - Physician/ SHAW Attestation Patient care was provided by Advanced Practice Provider:: No The physician spent face to face time with patient:: Yes Advanced Practice Provider documentation review:: Supervising physician onsite and consulted in the evaluation and care of this patient. The physician did have a face to face encounter with the patient.
--- NOTE | 2018-10-23 08:22 | EKG Report ---
Test Performed on : 10/23/2018 08:04:05 AM Test Reason : cp Blood Pressure : / mmHG Vent. Rate : 094 BPM Atrial Rate : 094 BPM P-R Int : 112 ms QRS Dur : 082 ms QT Int : 396 ms P-R-T Axes : 081 090 058 degrees QTc Int : 495 ms Normal sinus rhythm. Biatrial enlargement Rightward axis Pulmonary disease pattern Septal infarct , age undetermined Abnormal ECG When compared with ECG of 08-OCT-2018 19:03, (Unconfirmed) Septal infarct is now present ST now depressed in Anterior leads Unconfirmed Result
--- NOTE | 2018-10-23 09:02 | Diag Imaging Result Doc PS360 ---
EXAM: CHEST-2 VIEWS 10/23/2018 HISTORY: cp TECHNIQUE: Erect AP at 0834 COMMENT: There is a small granuloma in the left costal phrenic angle region. There are calcified nodes in the right hilum and granulomata in the right upper lobe. The heart size and pulmonary vascularity are within normal limits. There are bilateral nipple shadows. IMPRESSION: No acute disease. Granulomatous changes. Electronically signed by Farhan Perry 10/23/2018 9:00 AM
[2018-10-23 09:08] LABS: BILIRUBIN URINE NEGATIVE (NEGATIVE); BLOOD URINE NEGATIVE (NEGATIVE); KETONE URINE 3+(Large) mg/dL (NEGATIVE); LEUKOCYTES URINE NEGATIVE (NEGATIVE); NITRITE URINE NEGATIVE (NEGATIVE); PROTEIN URINE 1+(30 mg/dL) mg/dL (NEGATIVE); SP GRAVITY URINE 1.025; UROBILINOGEN URINE NORMAL
[2018-10-23 09:09] LABS: CLARITY CLEAR (CLEAR); COLOR YELLOW
[2018-10-23 09:16] LABS: URINE EPITHELIAL CELLS <10 /HPF (<10); URINE RBC <10 /HPF (<10); URINE SOURCE CLEAN CATCH; URINE WBC <10 /HPF (<10)
[2018-10-23 09:35] LABS: ALBUMIN 5.2 g/dL (3.5-5.0); CALCIUM 9.9 mg/dL (8.8-10.2); POTASSIUM 4.8 mmol/L (3.5-5.1); TOTAL BILIRUBIN 0.3 mg/dL (0.20-1.00); TOTAL PROTEIN 8.9 g/dL (6.3-8.3)
[2018-10-23 09:39] LABS: BE -21.3 mmoll (-3.0-3.0); BLOOD TYPE ARTERIAL; METHB 1.4 % (0.0-1.5); O2(CT) 21.7 mL/dL (15.0-23.0); O2HB 95.9 % (95.0-99.0); PO2(98.6) 107 mmHg (60-100); SAMPLE BLOOD
[2018-10-23 09:42] LABS: ALLEN TEST YES; MODALITY ROOM AIR; pH(98.6) 7.08 (7.35-7.45)
[2018-10-23 09:43] LABS: HCO3-(ACT) 8.3 mmoll (20.0-26.0); PCO2(98.6) 24 mmHg (35-45)
[2018-10-23] MEDS ORDERED: HUMULIN R (PARKWAY) IV ONE (09:49)
--- NOTE | 2018-10-23 10:07 | ED EKG INTERP ---
This chart was entered by Alexus Tolliver Scribe, acting as scribe for Elver Vu MD. EKG Interpretation - EKG Time of EKG reading by physician:: 08:04 EKG Read and Signed by:: Elver Vu EKG Interpretation (*Must complete 3 of following elements*): Abnormal (biatrial enlargement Pulmonary disease pattern septal infarct age undetermined Poor R wave) Rate: 94 Rhythm: normal sinus [place]: right ST Wave: normal Attestation - Physician/ SHAW Attestation Patient care was provided by Advanced Practice Provider:: No The physician spent face to face time with patient:: Yes Advanced Practice Provider documentation review:: Supervising physician onsite and consulted in the evaluation and care of this patient. The physician did have a face to face encounter with the patient. This chart was documented by the indicated scribe, (Alexus Tolliver Scribe) and accurately reflects the services I performed and decisions made by me, Elver Vu MD, as attested by the provider's signature.
[2018-10-23] MEDS ORDERED: D50W SYRINGE IV PRN ×3 (10:11→10:16)
[2018-10-23] MEDS ORDERED: ZOFRAN IV PRN (10:11)
[2018-10-23] MEDS ORDERED: HUMULIN R IV ONE (10:11)
[2018-10-23] MEDS ORDERED: SODIUM PHOSPHATE 30 MMOL in D5W 250 ML IV PRN ×2 (10:11→10:15)
[2018-10-23] MEDS ORDERED: POTASSIUM CHLORIDE 40 MEQ in NS 250 ML IV PRN (10:11)
[2018-10-23] MEDS ORDERED: COMPAZINE IV PRN (10:11)
[2018-10-23] MEDS ORDERED: MAGNESIUM SULFATE 2 GM/S.W.I. 2 GM/50 ML IVPB IV PRN ×2 (10:11→10:15)
[2018-10-23] MEDS ORDERED: POTASSIUM CHLORIDE 20% LIQUID PO PRN (10:15)
[2018-10-23] MEDS ORDERED: SODIUM BICARBONATE 8.4% 100 MEQ in STERILE WATER INJ. 500 ML IV PRN (10:15)
[2018-10-23] MEDS ORDERED: POTASSIUM CHLORIDE 10% LIQUID PO PRN (10:15)
[2018-10-23] MEDS ORDERED: POTASSIUM CHLORIDE 20 MEQ/SWI 20 MEQ/100 ML IVPB IV PRN (10:15)
[2018-10-23] MEDS ORDERED: POTASSIUM CHLORIDE 40 MEQ/SWI 40 MEQ/100 ML IVPB IV PRN (10:15)
[2018-10-23] MEDS ORDERED: HUMULIN R 100 UNIT in NS 100 ML IV SCH (10:15)
[2018-10-23] MEDS: NS 1,000 ML IV SCH ×2 (11:00→17:44)
[2018-10-23] MEDS: HUMULIN R 100 UNIT in NS 99 ML IV SCH ×2 (11:02→12:05)
[2018-10-23 11:20] LABS: AGAP 24; BUN 11 mg/dL (8-22); CALCIUM 9.1 mg/dL (8.8-10.2); CHLORIDE 105 mmol/L (98-107); COSMO 280; CREATININE 0.8 mg/dL (0.5-0.9); ESTIMATED GFR > 60; GLUCOSE 256 mg/dL (70-104); PHOSPHORUS 2.2 mg/dL (2.7-4.5); POTASSIUM 3.7 mmol/L (3.5-5.1); SODIUM 136 mmol/L (136-145); TCO2 7 mmol/L (25-35)
[2018-10-23 11:37] LABS: HEMOGLOBIN A1C 16.4 % (4.8-6.0)
[2018-10-23 12:02] LABS: UR AMPHETAMINES QUAL NONE DETECTED (NONE DETECT); UR BARBITUATES QUAL NONE DETECTED (NONE DETECT); UR BENZODIAZEPIN QUAL NONE DETECTED (NONE DETECT); UR CANNABINOIDS QUAL NONE DETECTED (NONE DETECT); UR COCAINE QUAL NONE DETECTED (NONE DETECT); UR METHADONE QUAL NONE DETECTED (NONE DETECT); UR METHAMPHETAMINE QUAL NONE DETECTED (NONE DETECT); UR OPIATES QUAL NONE DETECTED (NONE DETECT); UR OXYCODONE QUAL NONE DETECTED (NONE DETECT); UR PCP QUAL NONE DETECTED (NONE DETECT); UR PROPOXYPHENE QUAL NONE DETECTED (NONE DETECT); UR TCA QUAL NONE DETECTED (NONE DETECT)
[2018-10-23 13:44] LABS: CALCIUM 9.4 mg/dL (8.8-10.2); PHOSPHORUS 2.5 mg/dL (2.7-4.5); POTASSIUM 4.4 mmol/L (3.5-5.1)
--- NOTE | 2018-10-23 14:05 | HISTORY AND PHYSICAL ---
PRIMARY CARE PROVIDER: Dr. Leobardo Jenkins. CHIEF COMPLAINT: Excessive urination, nausea, and shortness of breath. HISTORY OF PRESENT ILLNESS: Ms. Katharina Frank is a 52-year-old female with frequent admissions for DKA secondary to her diabetes mellitus type 1. She checks her blood glucose level 6 or 7 times a day, and every time it is over 600. She admits to taking all of her insulin as prescribed. Her only side effects is constant urination, headache, nausea, and shortness of breath that has been going on for about 1 week. She even went to her primary care provider who made no changes to her regimen. She is supposed to have a new balloon dipper. She can't remember the name but is in [place] and that is on 12/24. She was just most recently here last month on 10/08 for the same thing. Currently, her blood glucose levels are in the 200s. She was in diabetic ketoacidosis at this time. We will transfer her to the ICU with insulin drip per protocol. She will receive DKA treatment. PAST MEDICAL HISTORY: 1. Diabetes mellitus type 1. 2. Asthma. 3. Hyperlipidemia. 4. Hypertriglyceridemia. PAST SURGICAL HISTORY: 1. Appendectomy. 2. Hysterectomy. 3. Bilateral tubal ligation. SOCIAL HISTORY: Denies tobacco, alcohol or illicit drug use. 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 She deals with a lot of stress in her life, but still continues to try to take care of herself. FAMILY HISTORY: Mother with breast cancer, stroke, coronary disease and diabetes. Father's side of the family, there is diabetes and coronary artery disease. ALLERGIES: 1. Rocephin shortness of breath. 2. Lisinopril swelling. 3. Shellfish anaphylaxis and aspirin. GI bleeding. MEDICATIONS: Home medications: 1. Singular 10 mg p.o. nightly. 2. Nebulizers inhaled as needed. 3. Epinephrine 0.3 mg IM p.r.n. for anaphylaxis. 4. Metformin 1000 mg p.o. twice daily. 6. Tresiba 80 units subcu daily. 7. Vitamin D3 2000 units p.o. daily. 8. Zyrtec 10 mg p.o. daily. 9. Robaxin 750 mg p.o. t.i.d. 10. She also takes the insulin. She was unsure what insulin it was, but she says 15 units with every single meal that she has. REVIEW OF SYSTEMS: A 14 point review of systems are complete, and all are negative except for those mentioned above in HPI. PHYSICAL EXAMINATION: VITAL SIGNS: Temperature 98.4 degrees, heart rate 92, respiratory rate 15, blood pressure 105/80, and O2 saturation 99% on room air. Orthostatic vital signs, heart rate in the supine position heart rate 130, blood pressure 136/92. In a sitting position, heart rate 114 and blood pressure 141/88. In a standing position, heart rate 115 and blood pressure 131/97. GENERAL: Ms. Katharina Frank is a 52-year-old female. She is anorexic. She looks older than her stated age, but she is in no acute distress. She is able to answer questions appropriately. HEENT: Atraumatic and normocephalic. Pupils equal, round, and reactive to light. Extraocular movements are intact. Mucous membranes are dry. NECK: Trachea midline. CARDIOVASCULAR: S1-S2 heard. Tachycardic rate rhythm. No rubs, gallops or murmurs. No lower extremity edema. +2 dorsalis and radial pulses are negative. No JVD or carotid bruits. PULMONARY: Clear to auscultation. Bibasilar breath sounds. No accessory muscle use or work of breathing noted. GI: Soft. Nontender and nondistended. Positive bowel sounds x4. EXTREMITIES: Moves all extremities equally full range of motion. NEUROLOGIC: Alert and oriented x3. Follows commands. Sensory intact. SKIN: Warm and dry. Intact. LABORATORY DATA: White blood cells 7000. Hemoglobin 16, hematocrit 49 and platelet count 346,000. ABGs pH 7.08. PCO2 24, PO2 107. Bicarb 8.3. Base excess -21 saturation 95%. Lactate 1.1 on room air. BMP: Sodium 136, potassium 3.7, BUN 11, creatinine 0.8, and glucose 256. Hemoglobin A1c is 16.4. Phosphorus 2.2, magnesium 1.6, bilirubin 0.30. AST 12 and ALT 7. The CK 68. Troponin less than 0.01. Albumin 5.2. Urinalysis 1+ protein, 3+ ketones, and 3+ glucose. Urine drug screen negative. Acetone level moderate. IMAGING: Chest x-ray no acute disease. Granulomatous disease. EKG normal sinus rhythm. Rate 94, QTc is 495. ASSESSMENT/PLAN: 1. Diabetic ketoacidosis with diabetes mellitus type 1, uncontrolled. Hemoglobin A1c of 16.4. There was one for 15 and another one was 16.4, a pretty big range there. She is going to be treated for her diabetic ketoacidosis protocol, and will be transferred to the ICU. She will have IV fluid hydration, insulin drip and electrolytes replaced. 2. History of asthma. No exacerbation at this time, just some mild complaints of shortness of breath. 3. Hyperlipidemia. Continue with statin. cc: Tom Perdue MD MTDD
[2018-10-23] MEDS ORDERED: ROBAXIN PO PRN (15:02)
[2018-10-23] MEDS: VITAMIN D PO SCH (15:30)
[2018-10-23] MEDS: ZYRTEC PO SCH (15:30)
[2018-10-23 19:04] LABS: ESTIMATED GFR > 60
[2018-10-23 19:13] LABS: AGAP 14; BUN 11 mg/dL (8-22); CALCIUM 8.9 mg/dL (8.8-10.2); CHLORIDE 110 mmol/L (98-107); COSMO 276; CREATININE 0.8 mg/dL (0.5-0.9); GLUCOSE 88 mg/dL (70-104); MAGNESIUM 2.5 mg/dL (1.5-2.7); PHOSPHORUS 1.8 mg/dL (2.7-4.5); POTASSIUM 4.1 mmol/L (3.5-5.1); SODIUM 139 mmol/L (136-145); TCO2 16 mmol/L (25-35)
[2018-10-23] MEDS: D5 NS 1,000 ML IV PRN (19:23)
[2018-10-23] MEDS ORDERED: TYLENOL PO PRN (19:41)
[2018-10-23] MEDS: SINGULAIR PO SCH (20:06)
[2018-10-23] MEDS: LIPITOR PO SCH (20:06)
[2018-10-23 22:44] LABS: AGAP 8; BUN 11 mg/dL (8-22); CALCIUM 8.7 mg/dL (8.8-10.2); CHLORIDE 110 mmol/L (98-107); COSMO 276; CREATININE 0.7 mg/dL (0.5-0.9); ESTIMATED GFR > 60; GLUCOSE 150 mg/dL (70-104); PHOSPHORUS 1.6 mg/dL (2.7-4.5); POTASSIUM 3.7 mmol/L (3.5-5.1); SODIUM 137 mmol/L (136-145); TCO2 19 mmol/L (25-35)
[2018-10-24 02:30] LABS: AGAP 7; BUN 11 mg/dL (8-22); CALCIUM 8.6 mg/dL (8.8-10.2); CHLORIDE 111 mmol/L (98-107); COSMO 276; CREATININE 0.7 mg/dL (0.5-0.9); ESTIMATED GFR > 60; GLUCOSE 114 mg/dL (70-104); MAGNESIUM 2.1 mg/dL (1.5-2.7); PHOSPHORUS 1.7 mg/dL (2.7-4.5); POTASSIUM 3.4 mmol/L (3.5-5.1); SODIUM 138 mmol/L (136-145); TCO2 20 mmol/L (25-35)
[2018-10-24] MEDS: D5 NS 1,000 ML IV PRN (05:00)
[2018-10-24] MEDS: NS 1,000 ML IV SCH ×2 (05:03→05:21)
[2018-10-24] MEDS ORDERED: POTASSIUM CHLORIDE 40 MEQ/SWI 40 MEQ/100 ML IVPB ONE (05:21)
[2018-10-24 06:38] LABS: AGAP 7; BUN 10 mg/dL (8-22); CALCIUM 8.8 mg/dL (8.8-10.2); CHLORIDE 110 mmol/L (98-107); COSMO 277; CREATININE 0.7 mg/dL (0.5-0.9); ESTIMATED GFR > 60; GLUCOSE 104 mg/dL (70-104); PHOSPHORUS 1.9 mg/dL (2.7-4.5); POTASSIUM 3.6 mmol/L (3.5-5.1); SODIUM 139 mmol/L (136-145); TCO2 22 mmol/L (25-35)
[2018-10-24] MEDS: VITAMIN D PO SCH (08:27)
[2018-10-24] MEDS: ZYRTEC PO SCH (08:27)
[2018-10-24] MEDS ORDERED: SODIUM PHOSPHATE 35 MMOL in NS 250 ML IV ONE (09:06)
[2018-10-24] MEDS ORDERED: TRESIBA FLEXTOUCH U-100 SUBQ SCH (09:15)
[2018-10-24] MEDS: GLUCOPHAGE PO SCH ×2 (09:49→17:54)
[2018-10-24] MEDS ORDERED: INSULIN PEN NEEDLES ONE (09:51)
[2018-10-24] MEDS: TRESIBA FLEXTOUCH U-100 SUBQ SCH (10:21)
--- NOTE | 2018-10-24 12:18 | PROGRESS NOTE ---
DATE: 10/24/2018 SUBJECTIVE: The patient reports feeling fine. Denies any fever or chills or excessive urination. OBJECTIVE: Vital Signs: Temperature 97.3 degrees, heart rate 80, respiratory rate 13, blood pressure 97/64, O2 saturation 100% on room air. General Examination: This is a chronically ill- appearing, 52-year-old female lying in bed, in no acute distress. Cardiovascular: S1, S2 heard. No murmurs, gallops, or rubs. Regular rate and rhythm. Respiratory: Clear bilaterally to auscultation. No work of breathing or using accessory muscles. Abdomen: Soft. Nontender to palpation. Bowel sounds present. No organomegaly. Extremities: No clubbing, cyanosis, or edema. Peripheral pulses present in both legs. Neurological: The patient is alert and oriented x3. Moves all 4 extremities. LABORATORY DATA: Reviewed. ASSESSMENT AND PLAN: 1. Diabetic ketoacidosis. The patient's DKA is resolved. At this point, we are going to stop the insulin drip and we will start her home medications, in this case, Tresiba. Her home dose is 80 mg, but considering her elevated hemoglobin A1c we will do 90, and we will restart metformin as well. 2. Uncontrolled diabetes mellitus, type 2. Her hemoglobin A1c was 16.8. The patient is strongly advised to use her medications and have regular appointments with her PCP regarding management of this condition. 3. Hyperlipidemia. The cholesterol is very elevated so the patient has been started on atorvastatin that will continue after discharge. 4. Disposition. We are going to send this patient out of the intensive care unit today and if her blood sugars are more stable we will let her go tomorrow. cc: Tom Perdue MD
[2018-10-24] MEDS: NEUTRA-PHOS PO SCH ×3 (12:45→19:53)
[2018-10-24] MEDS: SINGULAIR PO SCH (19:53)
[2018-10-24] MEDS: LIPITOR PO SCH (19:53)
[2018-10-25] MEDS: SINGULAIR PO SCH (00:53)
[2018-10-25] MEDS: LIPITOR PO SCH (00:53)
[2018-10-25] MEDS: NEUTRA-PHOS PO SCH ×3 (00:53→13:12)
[2018-10-25 05:25] LABS: CHLORIDE 111 mmol/L (98-107); POTASSIUM 3.3 mmol/L (3.5-5.1); SODIUM 142 mmol/L (136-145); TCO2 23 mmol/L (25-35)
[2018-10-25 05:26] LABS: AGAP 8; BUN 10 mg/dL (8-22); COSMO 281; CREATININE 0.6 mg/dL (0.5-0.9); ESTIMATED GFR > 60; GLUCOSE 75 mg/dL (70-104); MAGNESIUM 1.6 mg/dL (1.5-2.7); PHOSPHORUS 2.2 mg/dL (2.7-4.5)
[2018-10-25] MEDS: ZYRTEC PO SCH (08:23)
[2018-10-25] MEDS: VITAMIN D PO SCH (08:23)
[2018-10-25] MEDS: GLUCOPHAGE PO SCH (08:27)
[2018-10-25] MEDS: TRESIBA FLEXTOUCH U-100 SUBQ SCH (08:27)
[2018-10-25] MEDS ORDERED: SODIUM PHOSPHATE 35 MMOL in NS 250 ML IV ONE (10:24)
[2018-10-25] MEDS ORDERED: KLOR-CON PO ONE (10:27)
[2018-10-25 12:25] VITALS: BP 89/54
--- NOTE | 2018-10-25 14:04 | DISCHARGE SUMMARY ---
ADMISSION DATE: 10/23/2018 DISCHARGE DATE: 10/25/2018 ADMISSION DIAGNOSES: 1. Diabetes mellitus type 1 that is uncontrolled. 2. Diabetic ketoacidosis. 3. History of asthma. 4. Hyperlipidemia. DISCHARGE DIAGNOSES: 1. Diabetic ketoacidosis, resolved. 2. Uncontrolled diabetes mellitus type 1. 3. Hyperlipidemia. CONSULTATIONS: None. SURGERIES/PROCEDURES: None. HOSPITAL COURSE: Ms. Katharina Frank is a 52-year-old, female with a medical history of uncontrolled diabetes mellitus type 1. She keeps blood glucose levels over 600 according to her and she has it checked several times in the day. She admits to taking her medications as prescribed. She has not run out of her medications. She goes frequently to her primary care provider to help with management. Despite that, she continues to have issues with diabetic ketoacidosis spells. She is scheduled for a true endocrinology consult in [place] on 12/24/2018. While she was here, she was placed on an insulin drip per diabetic ketoacidosis protocol. Was transferred to the ICU for close observation and management of her DKA. Her blood glucose levels remained stable and she even had a couple spells where her blood glucose levels dropped to the 50s. Her insulin was changed. She will go home with a higher dosing of her Tresiba and her metformin will be resumed. Vital signs remained stable. DISCHARGE VITAL SIGNS: Temperature 98.9 degrees, heart rate 89, respiratory rate 16, blood pressure 89/54 with a mean arterial pressure of 62, 100 percent on room air. LABORATORY DATA: On the day of discharge, sodium 142, potassium 3.2, BUN 10, creatinine 0.6, glucose 75, calcium 9.0, phosphorus 2.2, magnesium 1.6. PERTINENT IMAGING: Chest x-ray, no acute disease. EKG normal sinus rhythm, rate 94, QTc was 495. MEDICATIONS: 1. Singulair 10 mg p.o. nightly. 2. Albuterol as needed. 3. Rescue epinephrine intramuscular. 4. Glucophage 1000 mg p.o. twice daily. 5. Ozempic 1 mg as directed. 6. Vitamin D3 with 2000 units p.o. daily. 7. Zyrtec 10 mg p.o. daily. 8. Lipitor 40 mg p.o. nightly. 9. Robaxin 750 mg p.o. t.i.d. 10. Tresiba 70 units subcutaneous daily. DISCHARGE DIET: Diabetic. DISCHARGE ACTIVITY: As tolerated. DISCHARGE PHYSICIAN FOLLOWUP: Dr. Leobardo Jenkins and she will also need to continue with her endocrinology appointment that is on 12/24/2018 that is in [place]. DISCHARGE INSTRUCTIONS: If her condition changes, contact her physician and/or return to the emergency department. Changes may include but are not limited to shortness of breath, increased fatigue, excessive bleeding, unexplained weight loss or gain, unimaginable pain, signs or symptoms of infection. DISCHARGE DISPOSITION: Home. Dictated by FLAVIA Phillips for oTm Perdue MD Addendum: Patient seen and examined by myself. Agree with FLAVIA note. It reflects my assessment and plan. Patient is being discharged from hospital in stable condition. Will be seen by PCP in a week. cc: FLAVIA Phillips MD Thomas E. Lockard, DO MORAES
[2018-10-26] MEDS ORDERED: TRESIBA FLEXTOUCH U-100 SUBQ SCH (09:00)
== END 2018-10-25 15:26 | disposition home or self-care (01) | DRG 639 ==
LOC: P.ED 07:14 → EDIPHOLD 10:19 → P.EDIPHOLD 11:19 → P.MEDSURG 10-24 11:08
PROVIDERS: ATTEND Internal Medicine
CPT/HCPCS: 71020; 71046; 80048; 80053; 80061; 80104; 80301; 80305; 81001; 82009; 82550; 82805; 82948; 83036; 83721; 83735; 84100; 84484; 85025; 87040; 93005; A9270; G0431; G0434; G0477; J1815; J3475; J3480; J7030; J7042; J7050; XXXXX

== ENCOUNTER 2019-01-02 09:21 | Inpatient (IN) ==
[2019-01-02] MEDS ORDERED: NS 1,000 ML IV ONE ×3 (09:40→12:17)
[2019-01-02 09:54] LABS: BE -16.6 mmoll (-3.0-3.0); BLOOD TYPE ARTERIAL; HCO3-(ACT) 11.9 mmoll (20.0-26.0); METHB 1.5 % (0.0-1.5); O2(CT) 21.8 mL/dL (15.0-23.0); O2HB 95.4 % (95.0-99.0); PCO2(98.6) 23 mmHg (35-45); PO2(98.6) 110 mmHg (60-100); SAMPLE BLOOD; THB 16.2 g/dL (11.5-17.4); pH(98.6) 7.21 (7.35-7.45)
[2019-01-02 09:57] LABS: MODALITY ROOM AIR
[2019-01-02 09:58] LABS: ALLEN TEST NO
[2019-01-02 10:05] LABS: BASO# 0.02 X1000 (0.0-0.2); BASO% 0.2 % (0.0-0.8); EOS# 0.01 X1000 (0.0-0.7); EOS% 0.1 % (0.0-10.0); HEMATOCRIT 46.3 % (37.0-47.0); HEMOGLOBIN 15.2 g/dL (12.0-16.0); IMM GRAN# 0.01 X1000 (0.0-0.04); IMM GRAN% 0.1 % (0.0-0.5); LYMPH# 2.16 X1000 (1.2-3.4); LYMPH% 22.8 % (20.5-51.1); MCH 31.1 PG (27-31); MCHC 32.8 g/dL (33-37); MCV 94.7 FL (81-99); MONO# 0.75 X1000 (0.11-0.59); MONO% 7.9 % (1.7-9.3); MPV 10.4 FL (7.4-10.4); NEUT# 6.53 X1000 (1.4-6.5); NEUT% 68.9 % (42.2-75.2); PLT 491 X1000 (130-400); RBC 4.89 XMIL (4.2-5.4); RDW 15.2 % (11.5-14.5); WBC 9.48 X1000 (4.8-10.8)
--- NOTE | 2019-01-02 10:07 | EKG Report ---
Test Performed on : 01/02/2019 09:42:30 AM Test Reason : CP Blood Pressure : / mmHG Vent. Rate : 111 BPM Atrial Rate : 111 BPM P-R Int : 114 ms QRS Dur : 084 ms QT Int : 344 ms P-R-T Axes : 076 075 043 degrees QTc Int : 467 ms Sinus tachycardia. Biatrial enlargement Nonspecific ST abnormality Abnormal ECG When compared with ECG of 15-DEC-2018 10:02, (Unconfirmed) Inverted T waves have replaced nonspecific T wave abnormality in Inferior leads Unconfirmed Result
[2019-01-02] MEDS ORDERED: HUMULIN R (PARKWAY) IV ONE (10:32)
[2019-01-02 10:52] LABS: HEMOGLOBIN A1C 2.2 % (4.8-6.0)
[2019-01-02 11:10] LABS: PHOSPHORUS 3.7 mg/dL (2.7-4.5)
[2019-01-02 11:13] LABS: ALBUMIN 4.8 g/dL (3.5-5.0); CALCIUM 9.9 mg/dL (8.8-10.2); POTASSIUM 5.6 mmol/L (3.5-5.1); TOTAL BILIRUBIN 0.4 mg/dL (0.20-1.00); TOTAL PROTEIN 8.9 g/dL (6.3-8.3)
--- NOTE | 2019-01-02 12:00 | Diag Imaging Result Doc PS360 ---
EXAM: CHEST-2 VIEWS INDICATION: sob TECHNIQUE: 2 views COMPARISON: 12/15/2018 FINDINGS: The lungs are grossly clear. There is no discrete pleural fluid collection or pneumothorax. The cardiomediastinal silhouette and central vasculature are grossly unremarkable. IMPRESSION: No evidence of acute pathology by plain radiograph. Electronically signed by Roderick Malcolm 01/02/2019 11:58 AM
[2019-01-02 12:03] LABS: UR AMPHETAMINES QUAL NONE DETECTED (NONE DETECT); UR BARBITUATES QUAL NONE DETECTED (NONE DETECT); UR BENZODIAZEPIN QUAL NONE DETECTED (NONE DETECT); UR CANNABINOIDS QUAL NONE DETECTED (NONE DETECT); UR COCAINE QUAL NONE DETECTED (NONE DETECT); UR METHADONE QUAL NONE DETECTED (NONE DETECT); UR METHAMPHETAMINE QUAL NONE DETECTED (NONE DETECT); UR OPIATES QUAL NONE DETECTED (NONE DETECT); UR OXYCODONE QUAL NONE DETECTED (NONE DETECT); UR PCP QUAL NONE DETECTED (NONE DETECT); UR PROPOXYPHENE QUAL NONE DETECTED (NONE DETECT); UR TCA QUAL NONE DETECTED (NONE DETECT)
[2019-01-02 12:11] LABS: BILIRUBIN URINE NEGATIVE (NEGATIVE); BLOOD URINE NEGATIVE (NEGATIVE); CLARITY CLEAR (CLEAR); COLOR YELLOW; KETONE URINE 3+(Large) mg/dL (NEGATIVE); LEUKOCYTES URINE NEGATIVE (NEGATIVE); NITRITE URINE NEGATIVE (NEGATIVE); PROTEIN URINE 1+(30 mg/dL) mg/dL (NEGATIVE); UROBILINOGEN URINE NORMAL
[2019-01-02 12:12] LABS: URINE BACTERIA NEGATIVE /HFP; URINE CAST NONE SEEN /LPF; URINE CRYSTAL NONE SEEN /HPF; URINE EPITHELIAL CELLS <10 /HPF (<10); URINE RBC <10 /HPF (<10); URINE SOURCE CLEAN CATCH; URINE WBC <10 /HPF (<10); URINE YEAST PRESENT /HPF
[2019-01-02] MEDS ORDERED: TYLENOL PO PRN ×2 (12:57→14:00)
[2019-01-02] MEDS ORDERED: ZOFRAN IV PRN ×2 (12:57→14:00)
[2019-01-02] MEDS ORDERED: EPINEPHRINE IM PRN (12:57)
[2019-01-02] MEDS ORDERED: HUMULIN R 100 UNIT in NS 100 ML IV SCH (14:00)
[2019-01-02] MEDS ORDERED: POTASSIUM CHLORIDE 20 MEQ/SWI 20 MEQ/100 ML IVPB IV PRN (14:00)
[2019-01-02] MEDS: D5 NS 1,000 ML IV SCH ×2 (14:00→21:02)
[2019-01-02] MEDS ORDERED: POTASSIUM CHLORIDE 20% LIQUID PO PRN (14:00)
[2019-01-02] MEDS ORDERED: POTASSIUM CHLORIDE 10% LIQUID PO PRN (14:00)
[2019-01-02] MEDS ORDERED: SODIUM BICARBONATE 8.4% 100 MEQ in STERILE WATER INJ. 500 ML IV PRN (14:00)
[2019-01-02] MEDS ORDERED: POTASSIUM CHLORIDE 40 MEQ/SWI 40 MEQ/100 ML IVPB IV PRN (14:00)
[2019-01-02] MEDS ORDERED: SODIUM PHOSPHATE 30 MMOL in D5W 250 ML IV PRN (14:00)
[2019-01-02] MEDS ORDERED: NS 1,000 ML IV SCH (14:00)
[2019-01-02] MEDS: NS 1,000 ML IV SCH ×2 (14:03→19:34)
--- NOTE | 2019-01-02 16:54 | HISTORY AND PHYSICAL ---
PRIMARY CARE PHYSICIAN: Dr. Jenkins. CHIEF COMPLAINT: Of an elevated blood sugar all week. Stated it was above 600 yesterday and 400 this morning, also having nausea, vomited x1 this morning and some mild chest discomfort. HISTORY OF PRESENTING ILLNESS: This is a 53-year-old female who presents to [facility] ER with complaints of an elevated blood sugar of 600 yesterday, 400 today but that they have been elevated for the past week. Has had nausea with vomiting x1 today, diarrhea, some mild chest discomfort. It is noted that she was in the hospital from 10/23/2018 through 10/25/2018 with a DKA and today her blood sugar was 433, sodium 136, CO2 12. Acetone is moderate. ABG showed a pH of 7.21, pCO2 23, PO2 110, bicarb 11.9 on room air so she is being admitted for DKA to the intensive care unit for further evaluation and treatment. PAST MEDICAL HISTORY: Diabetes type 1, asthma, hyperlipidemia, hypertriglyceridemia. PAST SURGICAL HISTORY: Of an appendectomy hysterectomy and a bilateral tubal ligation. FAMILY HISTORY: Mother had breast cancer, stroke and coronary artery disease and diabetes. Father's side of the family has diabetes and coronary artery disease. SOCIAL HISTORY: She currently lives with family. Denies any tobacco, alcohol or illicit drug use. ALLERGIES: To ceftriaxone, shellfish and aspirin. HOME MEDICATIONS: We will hold Tresiba 75 units subcutaneous daily, Novolin R 15 units subcutaneous t.i.d. and Glucophage 1000 mg p.o. b.i.d. We will continue her Lipitor 40 mg p.o. at bedtime, calcium 500 mg p.o. daily and an EpiPen p.r.n. as directed. LABORATORY DATA: Showed a white blood cell count of 9.48, hemoglobin 15.2, hematocrit 46.3, platelets 491,000. ABG with a pH of 7.21, pCO2 of 23, PO2 110, bicarb 11.9 and that was on room air. Sodium 136, potassium 5.6, chloride 97, CO2 12, BUN of 17, creatinine 1, glucose 433. Cardiac enzyme was negative. Plasma lactate of 1.4. Urinalysis was negative except for some yeast that was present. Urine drug screen showed none detected. Acetone level was moderate. Chest x-ray showed no evidence of acute pathology by plain radiograph. EKG showed sinus tachycardia at 111. REVIEW OF SYSTEMS: She denied any fever, chills, blurred vision, dizziness, chest pain, coughing, shortness of breath. She had nausea, vomiting, diarrhea, an elevated blood sugar. Denied any abdominal pain or burning or hurting with urination. PHYSICAL EXAMINATION: On arrival she had a temperature of 98.3 degrees, pulse 128, respirations 20, blood pressure 123/83, saturating 100% on room air. GENERAL: This is a 53-year-old female who is lying in the bed, answers questions appropriately. HEENT: Normocephalic, atraumatic. Normal ENT inspection. Oropharynx and nares are clear. Pupils are equal, round, reactive to light and accommodation. Extraocular movements are intact. NECK: Normal inspection, normal range of motion. LUNGS: Clear to auscultation bilaterally with equal lung expansion and chest wall movement. HEART: With regular rate and rhythm. No murmurs, rubs, or gallops. ABDOMEN: Soft, nontender, nondistended. Bowel sounds are present x4 quadrants. MUSCULOSKELETAL: She has 5/5 strength x4 extremities. NEUROLOGICAL: The cranial nerves 2-12 are grossly intact. ASSESSMENT: 1. Diabetic ketoacidosis in a known diabetes type 1 with hyperglycemia. 2. Vaginal candidiasis per her UA. 3. Hyperlipidemia. PLAN: She will be admitted to the intensive care unit placed on our DKA protocol. Labs per the protocol, clear liquid diabetic diet. She will receive a total of 3 L of normal saline boluses then she will be on normal saline at 125 mL an hour. Restart home medicines as previously identified, again recheck labs per the protocol and further orders after seen by attending. Dictated by FLAVIA Narvaez for Roe Olivo MD cc: FLAVIA Narvaez MD Dr. Walker
[2019-01-02 17:17] LABS: AGAP 20; BUN 12 mg/dL (8-22); CALCIUM 8.2 mg/dL (8.8-10.2); CHLORIDE 108 mmol/L (98-107); COSMO 281; CREATININE 0.8 mg/dL (0.5-0.9); ESTIMATED GFR > 60; GLUCOSE 196 mg/dL (70-104); MAGNESIUM 1.6 mg/dL (1.5-2.7); POTASSIUM 4.8 mmol/L (3.5-5.1); SODIUM 138 mmol/L (136-145); TCO2 10 mmol/L (25-35)
[2019-01-02] MEDS: DIFLUCAN 100 MG/NS 100 MG/50 ML IVPB IV SCH (17:28)
[2019-01-02] MEDS: MAGNESIUM SULFATE 2 GM/S.W.I. 2 GM/50 ML IVPB IV PRN (18:05)
[2019-01-02] MEDS: LIPITOR PO SCH (19:36)
--- NOTE | 2019-01-02 20:02 | HISTORY AND PHYSICAL ---
ADDENDUM: HISTORY OF PRESENT ILLNESS: This is a 53-year-old female with recurrent DKA. She came in with a blood sugar above 433. She had a gap of 27 and a bicarbonate of 12. Her A1c curiously is only 2.2. In any case, the patient was admitted for DKA. She has been placed on an insulin drip, IV fluids. PHYSICAL EXAMINATION: Some lethargy, but no other major issues. PLAN: We will continue to follow closely. TIME SPENT: 32 minutes of critical care time for DKA requiring IV insulin. cc: Roe Olivo MD
[2019-01-02 21:49] LABS: AGAP 12; BUN 9 mg/dL (8-22); CHLORIDE 109 mmol/L (98-107); COSMO 277; CREATININE 0.6 mg/dL (0.5-0.9); ESTIMATED GFR > 60; GLUCOSE 185 mg/dL (70-104); MAGNESIUM 2.1 mg/dL (1.5-2.7); PHOSPHORUS 1.2 mg/dL (2.7-4.5); POTASSIUM 4.3 mmol/L (3.5-5.1); SODIUM 137 mmol/L (136-145); TCO2 16 mmol/L (25-35)
[2019-01-02] MEDS ORDERED: KLOR-CON PO ONE (22:28)
[2019-01-03 02:44] LABS: AGAP 9; BUN 8 mg/dL (8-22); CALCIUM 7.9 mg/dL (8.8-10.2); CHLORIDE 109 mmol/L (98-107); COSMO 277; CREATININE 0.6 mg/dL (0.5-0.9); ESTIMATED GFR > 60; GLUCOSE 186 mg/dL (70-104); MAGNESIUM 1.8 mg/dL (1.5-2.7); PHOSPHORUS 1.3 mg/dL (2.7-4.5); POTASSIUM 3.8 mmol/L (3.5-5.1); SODIUM 137 mmol/L (136-145); TCO2 20 mmol/L (25-35)
[2019-01-03] MEDS ORDERED: KLOR-CON PO ONE (02:52)
[2019-01-03] MEDS: D5 NS 1,000 ML IV SCH ×4 (03:54→21:46)
[2019-01-03] MEDS: NS 1,000 ML IV SCH ×4 (03:55→21:45)
[2019-01-03] MEDS: LIPITOR PO SCH ×2 (03:56→21:44)
[2019-01-03 05:44] LABS: WBC 6.33 X1000 (4.8-10.8)
[2019-01-03 05:46] LABS: BASO# 0.01 X1000 (0.0-0.2); BASO% 0.2 % (0.0-0.8); EOS# 0.08 X1000 (0.0-0.7); EOS% 1.3 % (0.0-10.0); HEMOGLOBIN 11.3 g/dL (12.0-16.0); IMM GRAN# 0.01 X1000 (0.0-0.04); IMM GRAN% 0.2 % (0.0-0.5); LYMPH# 1.97 X1000 (1.2-3.4); LYMPH% 31.1 % (20.5-51.1); MCH 30.5 PG (27-31); MCHC 32.3 g/dL (33-37); MCV 94.6 FL (81-99); MONO# 0.86 X1000 (0.11-0.59); MONO% 13.6 % (1.7-9.3); MPV 9.7 FL (7.4-10.4); NEUT% 53.6 % (42.2-75.2); PLT 292 X1000 (130-400); RDW 14.4 % (11.5-14.5)
[2019-01-03 05:59] LABS: AGAP 8; BUN 8 mg/dL (8-22); CALCIUM 8.6 mg/dL (8.8-10.2); CHLORIDE 109 mmol/L (98-107); COSMO 278; CREATININE 0.6 mg/dL (0.5-0.9); ESTIMATED GFR > 60; GLUCOSE 178 mg/dL (70-104); MAGNESIUM 1.7 mg/dL (1.5-2.7); POTASSIUM 3.9 mmol/L (3.5-5.1); SODIUM 138 mmol/L (136-145); TCO2 21 mmol/L (25-35)
[2019-01-03] MEDS: MAGNESIUM SULFATE 2 GM/S.W.I. 2 GM/50 ML IVPB IV PRN (07:03)
[2019-01-03 09:13] LABS: AGAP 6; BUN 7 mg/dL (8-22); CALCIUM 8.8 mg/dL (8.8-10.2); CHLORIDE 108 mmol/L (98-107); COSMO 276; CREATININE 0.6 mg/dL (0.5-0.9); ESTIMATED GFR > 60; GLUCOSE 179 mg/dL (70-104); MAGNESIUM 2.3 mg/dL (1.5-2.7); POTASSIUM 3.8 mmol/L (3.5-5.1); SODIUM 137 mmol/L (136-145); TCO2 23 mmol/L (25-35)
[2019-01-03] MEDS: CALTRATE 600 PO SCH (09:45)
--- NOTE | 2019-01-03 14:18 | HISTORY AND PHYSICAL ---
SUBJECTIVE: Seems to be doing better. OBJECTIVE: Blood pressure 100/69, heart rate 82, respiratory 15, temperature 98.3 degrees.Cardiovascular: Regular rate and rhythm. Pulmonary: Bilateral breath sounds clear to auscultation. GI: Soft, nontender, nondistended. Bowel sounds are positive. Extremity: No clubbing or cyanosis. Lymphatic: No peripheral edema. Neurological: Nonfocal. LABORATORY DATA: Hematocrit 11 and hematocrit 35. Basic showed bicarb is up to 23, gap is 6. Sugar is 179, phosphorus is 1.1. PROBLEM LIST: 1. Diabetic ketoacidosis that has resolved. We will switch her back to her regular medications. 2. Hypophosphatemia. We will supplement and follow. Check her levels tomorrow. 3. Candidiasis. She is on Diflucan. We will continue to monitor. DISPOSITION: Pending her clinical status. cc: Roe Olivo MD
[2019-01-03] MEDS ORDERED: INSULIN PEN NEEDLES ONE (14:26)
[2019-01-03] MEDS ORDERED: SODIUM PHOSPHATE 40 MEQ in NS 250 ML IV ONE (14:30)
[2019-01-03] MEDS: TRESIBA FLEXTOUCH U-100 SUBQ SCH (14:34)
[2019-01-03] MEDS: HUMALOG (PARKWAY) SUBQ SCH ×2 (15:54→21:45)
[2019-01-03] MEDS: DIFLUCAN 100 MG/NS 100 MG/50 ML IVPB IV SCH (21:45)
[2019-01-04 05:09] VITALS: BP 107/68
[2019-01-04] MEDS: NS 1,000 ML IV SCH (06:30)
[2019-01-04] MEDS: D5 NS 1,000 ML IV SCH (06:30)
[2019-01-04] MEDS: HUMALOG (PARKWAY) SUBQ SCH (06:37)
[2019-01-04 06:56] LABS: BASO# 0.01 X1000 (0.0-0.2); BASO% 0.2 % (0.0-0.8); EOS# 0.04 X1000 (0.0-0.7); HEMATOCRIT 34.9 % (37.0-47.0); HEMOGLOBIN 11.2 g/dL (12.0-16.0); LYMPH# 1.37 X1000 (1.2-3.4); LYMPH% 33.3 % (20.5-51.1); MCH 30.4 PG (27-31); MCHC 32.1 g/dL (33-37); MCV 94.6 FL (81-99); MONO# 0.44 X1000 (0.11-0.59); MONO% 10.7 % (1.7-9.3); MPV 9.9 FL (7.4-10.4); NEUT# 2.25 X1000 (1.4-6.5); NEUT% 54.8 % (42.2-75.2); PLT 296 X1000 (130-400); RBC 3.69 XMIL (4.2-5.4); RDW 14.6 % (11.5-14.5); WBC 4.11 X1000 (4.8-10.8)
[2019-01-04 08:00] LABS: PHOSPHORUS 2.8 mg/dL (2.7-4.5)
[2019-01-04 08:26] LABS: TSH 1.99 uIUmL (0.27-4.20)
[2019-01-04 08:27] LABS: AGAP 8; BUN 6 mg/dL (8-22); CALCIUM 8.7 mg/dL (8.8-10.2); CHLORIDE 108 mmol/L (98-107); COSMO 286; CREATININE 0.6 mg/dL (0.5-0.9); ESTIMATED GFR > 60; GLUCOSE 292 mg/dL (70-104); MAGNESIUM 1.7 mg/dL (1.5-2.7); POTASSIUM 4.2 mmol/L (3.5-5.1); SODIUM 139 mmol/L (136-145); TCO2 23 mmol/L (25-35)
[2019-01-04] MEDS: CALTRATE 600 PO SCH (09:42)
[2019-01-04] MEDS: TRESIBA FLEXTOUCH U-100 SUBQ SCH (09:43)
[2019-01-04] MEDS ORDERED: CYANOCOBALAMIN IM ONE (10:06)
--- NOTE | 2019-01-05 09:56 | DISCHARGE SUMMARY ---
ADMISSION DATE: 01/02/2019 DISCHARGE DATE: 01/04/2019 DISCHARGE DIAGNOSES: 1. Diabetic ketoacidosis. 2. Hypophosphatemia. 3. Candidiasis. 4. B12 deficiency. DISPOSITION: Day of discharge she seems to be doing okay. Blood sugars are stable. Physical exam unremarkable. Her B12 level though was low with a normal TSH. Folate is also pending. We supplemented her B12 and discharged her on her regular medications. Follow up with her PCP who is Dr. Leobardo Jenkins. TIME SPENT: 32 minute discharge. cc: Roe Olivo MD
--- NOTE | 2019-01-05 10:53 | PROVIDER DOCUMENTATION ---
This chart was entered by Carlos Michaels Scribe, acting as scribe for Cleopatra Agrawal CRNP. HPI-General Adult - General Chief Complaint: N/V/D Stated Complaint: SOB BS HIGHS AND LOWS Time Seen by Provider: 01/02/19 09:25 Source: patient, family Allergies/Adverse Reactions: Patient Allergies Allergy/AdvReac Type Severity Reaction Status Date / Time ceftriaxone sodium * Allergy SHORTNESS Verified 01/02/19 09:47 [From Rocephin] OF BREATH shellfish derived Allergy ANAPHYLAXIS Verified 01/02/19 09:47 aspirin AdvReac NAUSEA Verified 01/02/19 09:47 Home Medications: Home Medication List Medication Instructions Recorded Confirmed Last Taken Type Epinephrine 0.3 mg IM PRN PRN 06/17/18 01/02/19 Unknown History Metformin [Glucophage] 1,000 mg PO BID 06/17/18 01/02/19 07/28/18 History ATORVAstatin [Lipitor] 40 mg PO QHS #90 tab 10/25/18 01/02/19 Unknown Rx Calcium 1 tab PO DAILY 12/02/18 01/02/19 Unknown History Insulin Degludec [Tresiba 75 unit SQ DAILY 12/02/18 01/02/19 Unknown History Flextouch U-100] Insulin Regular, Human [Novolin R] 15 unit SQ TID CC 12/02/18 01/02/19 Unknown History - History of Present Illness -Gen Adult Nature of Presenting Problems: Pt is a 53 yof who presents to the ED with a CC of high blood sugar. Pt states she measured her blood sugar and recorded it at approximately 600 yesterday and 400 this morning. Pt reports a hx of diabetes. Pt complains of nausea, vomiting, and mild chest pain. Pt states she thought she was having a heart attack this morning. Location of Pain/Injury: reports: other (See HPI) Severity: reports: mild Onset/Duration: reports: 24 hours ago Timing: reports: still present Associated Symptoms: reports: chest pain, nausea, vomiting, weakness, trouble walking Similar Symptoms Previously?: Yes Recently seen or treated by another doctor?: No - Diabetes Related Context Context: reports: high blood sugar Review of Systems - Adult - REVIEW OF SYSTEMS - ADULT Constitutional: reports: see HPI Eyes: reports: no symptoms reported Ears, Nose, Mouth & Throat: reports: no symptoms reported Cardiovascular: reports: see HPI, chest pain Respiratory: reports: no symptoms reported Gastrointestinal: reports: see HPI, nausea, vomiting Genitourinary: reports: no symptoms reported Musculoskeletal: reports: see HPI, muscle weakness Integumentary: reports: no symptoms reported Neurological: reports: no symptoms reported Psychiatric: reports: no symptoms reported Endocrine: reports: no symptoms reported Hematologic/Lymphatic: reports: no symptoms reported Allergic/Immunologic: reports: no symptoms reported All Other Systems: Reviewed and Negative Past History - Adult - PAST MEDICAL HISTORY-ADULT Review of Records: reports: Old Records Reviewed, Nursing Assessment Review, Medications Reviewed, Social history reviewed & non-contributory. Major Childhood Illnesses: reports: denies history Cardiovascular: reports: hyperlipidemia Respiratory: reports: asthma Gastrointestinal: reports: denies history Obstetrical/Gynecological: reports: denies history Genitourinary: reports: denies history Musculoskeletal: reports: chronic pain (back), neck/back injury Neurological: reports: headaches/migraines Endocrine/Immune: reports: Diabetes Other Conditions: reports: denies history, MRSA - PRIOR SURGERIES/PROCEDURES Surgical/Procedure History: reports: appendectomy, hysterectomy, BTL - IMMUNIZATION STATUS Childhood Immunizations: See Nurse Assessment Flu Vaccine: See Nurse Assessment - FAMILY HISTORY Family History: reviewed, not pertinent - SOCIAL HISTORY Smoking: denies, non-smoker Substance Use: none/never, denies Alcohol Use Frequency: never Physical Exam-General - PHYSICAL EXAM-ADULT Initial Vital Signs Reviewed: Yes - CONSTITUTIONAL General Appearance: alert, mild distress - EYES Eyes: PERRL/EOMI - HEAD, EARS, NOSE, MOUTH & THROAT HENMT: moist mucous membranes - NECK Neck: non-tender, full range of motion - RESPIRATORY Respiratory: chest non-tender, lungs clear, normal breath sounds, no pleuratic chest pain, no respiratory distress, no accessory muscle use - CARDIOVASCULAR Cardiovascular: no edema, no gallop, tachycardia - GASTROINTESTINAL (ABDOMEN) Abdominal Exam: normal bowel sounds, non tender, soft - LYMPHATIC Lymphatic: no adenopathy - MUSCULOSKELETAL Back Exam: normal inspection Extremity: normal range of motion, non-tender, normal inspection - SKIN Integumentary: normal color, warm/dry - NEUROLOGIC Neurologic: grossly normal, no motor/sensory deficits - PSYCHIATRIC Psych/Mental Status: normal mood/affect, normal thought content, normal thought process, oriented x 3 Progress - PLAN OF CARE/RESULTS Progress/Plan/Lab Results: Vital Signs - 8 hr 01/02/19 09:24 Temperature 98.3 F Pulse Rate 128 H Respiratory Rate 20 Blood Pressure 123/83 O2 Sat by Pulse Oximetry 100 Laboratory Results - last 24 hr 01/02/19 09:33 POC Glucose 400 H D Orders Category Date Time Status Finger Stick Blood Sugar (ED) DIRECTED Care 01/02/19 09:26 Active CHEST-2 VIEWS [RAD] Stat Exams 01/02/19 09:26 Ordered ABG [RESP] Routine Lab 01/02/19 09:26 Ordered CBC WITH DIFF [HEME] Stat Lab 01/02/19 09:26 Ordered CK PROFILE [SP CHEM] Stat Lab 01/02/19 09:40 Uncollected COMPREHENSIVE METABOLIC PANEL [CHEM] Stat Lab 01/02/19 09:26 Uncollected LACTATE, PLASMA [CHEM] Stat Lab 01/02/19 09:27 Uncollected TROPONIN T Stat Lab 01/02/19 09:[address] W/POSS RFLX CULT [URINALYSIS] Stat Lab 01/02/19 09:26 Uncollected EKG [EKG] Stat Ther 01/02/19 09:40 Ordered Result Diagrams: 01/02/19 09:53 01/02/19 10:50 - EKG 1 Time of EKG reading by physician:: 09:50 EKG Read and Signed by:: Elver Vu EKG Interpretation (*Must complete 3 of following elements*): Abnormal (Bilateral enlargement; Nonspecific ST abnormality) Rate: 111 Rhythm: Sinus tachycardia [place]: normal QRS: normal MD Interval: normal ST Wave: non-specific ST changes - XRAY 1 XRAY Study: Chest Impression: See EMR Report (FINDINGS: The lungs are grossly clear. There is no discrete pleural fluid collection or pneumothorax. The cardiomediastinal silhoue tte and central vasculature are grossly unremarkable. IMPRESSION: No evidence of acute pathology by plain radiograph. Electronically signed by Roderick Malcolm 01/02/2019 11:58 AM) - CONSULTS/PCP/HOSPITALIST Notification #1 *Consult/PCP/Hospitalist*: Dr Olivo Time Discussed: 12:16 Consult Disposition: Admit Departure - Departure Date of Disposition Decision: 01/02/19 Time of Disposition Decision: 11:39 DIAGNOSIS: Hyperglycemia, Hyperkalemia Diabetic ketoacidosis Qualifiers: Diabetes mellitus type: type 1 Diabetes mellitus complication detail: without coma Qualified Code(s): E10.10 - Type 1 diabetes mellitus with ketoacidosis without coma Disposition: ADMITTED INPATIENT 09 Certified Medical Emergency: Emergent Condition: Stable Referrals and Follow-Ups: Leobardo Jenkins DO [Primary Care Provider] - - Critical Care Note This patient required my direct & personal management of CC.: No Attestation - Physician/ SHAW Attestation Patient care was provided by Advanced Practice Provider:: Yes Advanced Practice Provider:: Cleopatra Agrawal Advanced Practice Provider documentation review:: The Mid-level provider documentation, treatment plan and medical decision making was reviewed by the physician who agrees with all treatment and medical decision making by the MLP. The physician spent face to face time with patient:: No Advanced Practice Provider documentation review:: Supervising physician onsite and consulted in the evaluation and care of this patient. The physician did not have a face to face encounter with the patient. This chart was documented by the indicated scribe, (Carlos Michaels Scribe) and accurately reflects the services I performed and decisions made by me, Cleopatra Agrawal CRNP, as attested by the provider's signature.
--- NOTE | 2019-01-05 13:02 | DISCHARGE SUMMARY ---
ADMISSION DATE: 01/02/2019 DISCHARGE DATE: 01/04/2019 DIAGNOSES: 1. Diabetic ketoacidosis, resolved. 2. Hypophosphatemia, resolved. 3. Candidiasis. DIAGNOSTICS: Chest x-ray revealed no evidence of acute pathology by plain radiograph. HOSPITAL COURSE: Ms. Frank presented to the emergency room complaining of elevated blood sugar. She was found to be in DKA. She was admitted to ICU and placed on DKA protocol. This resolved. She was placed back on her home medications with blood sugars that were in the 170 to 240 range. She complained of weakness. She was found to have a vitamin B12 level of 150 for which she was given 1000 mcg of cyanocobalamin. DISCHARGE MEDICATIONS: 1. Metformin 1000 mg p.o. b.i.d. 2. Novolin R 15 units subcutaneous t.i.d. before meals. 3. Tresiba 75 units subcutaneous daily. 4. EpiPen as directed. 5. Vitamin B12 1000 mcg p.o. daily. 6. Calcium 500 mg p.o. daily. 7. Lipitor 40 mg p.o. at bedtime FOLLOWUP: Dr. Leobardo Jenkins 01/06/2019 at 10:40 in the morning. She has been instructed to call to be seen sooner or return to the emergency room for any syncope, dizziness, chest pain, palpitations, shortness of breath, cough, temperature greater than 101 any nausea, vomiting, diarrhea, constipation, black or bloody vomitus or stools, any hematuria, dysuria, frequency, or urgency. She has been instructed to check her blood sugars in the morning, fasting blood sugar as well as twice more at various times through the day. Take this log with her to her followup visit with Dr. Jenkins. She is being discharged home in stable condition with family members. TIME SPENT: This is a greater than 30 minute discharge. Dictated by FLAVIA Muhammad for Roe Olivo MD cc: FLAVIA Muhammad MD Dr. Lockard
== END 2019-01-04 11:35 | disposition home or self-care (01) | DRG 639 ==
LOC: P.ED 09:21 → P.ICU 12:35 → P.MEDSURG 01-03 16:15
PROVIDERS: ATTEND Internal Medicine

== ENCOUNTER 2019-02-08 10:17 | Inpatient (IN) ==
[2019-02-08] MEDS ORDERED: HUMULIN R IV ONE (10:46)
[2019-02-08] MEDS ORDERED: NS 1,000 ML IV ONE ×2 (10:46→11:53)
[2019-02-08 10:49] LABS: URINE SOURCE CLEAN CATCH
[2019-02-08 10:53] LABS: BILIRUBIN URINE NEGATIVE (NEGATIVE); BLOOD URINE NEGATIVE (NEGATIVE); CLARITY CLEAR (CLEAR); COLOR YELLOW; KETONE URINE 3+(Large) mg/dL (NEGATIVE); LEUKOCYTES URINE NEGATIVE (NEGATIVE); NITRITE URINE NEGATIVE (NEGATIVE); PH URINE 6.5; PROTEIN URINE TRACE mg/dL (NEGATIVE); SP GRAVITY URINE 1.015; UROBILINOGEN URINE NORMAL
[2019-02-08 10:54] LABS: URINE BACTERIA NEGATIVE /HFP; URINE CAST NONE SEEN /LPF; URINE CRYSTAL NONE SEEN /HPF; URINE EPITHELIAL CELLS <10 /HPF (<10); URINE RBC <10 /HPF (<10); URINE WBC <10 /HPF (<10); URINE YEAST NONE SEEN /HPF
[2019-02-08 11:14] LABS: BLOOD TYPE ARTERIAL; HCO3-(ACT) 11.6 mmoll (20.0-26.0); METHB 1.4 % (0.0-1.5); O2(CT) 20.6 mL/dL (15.0-23.0); PO2(98.6) 96 mmHg (60-100); SAMPLE BLOOD; SAO2 98.4 % (95.0-100.0); THB 15.4 g/dL (11.5-17.4)
[2019-02-08 11:19] LABS: ALLEN TEST YES; MODALITY ROOM AIR
[2019-02-08 11:21] LABS: HEMOGLOBIN 14.6 g/dL (12.0-16.0); MCH 28.6 PG (27-31); MCHC 31.7 g/dL (33-37); MPV 11.2 FL (7.4-10.4); RBC 5.11 XMIL (4.2-5.4); RDW 14.2 % (11.5-14.5); WBC 4.94 X1000 (4.8-10.8)
[2019-02-08] MEDS ORDERED: HUMULIN R (PARKWAY) ONE (11:22)
[2019-02-08 11:26] LABS: UR AMPHETAMINES QUAL NONE DETECTED (NONE DETECT); UR BARBITUATES QUAL NONE DETECTED (NONE DETECT); UR BENZODIAZEPIN QUAL NONE DETECTED (NONE DETECT); UR CANNABINOIDS QUAL NONE DETECTED (NONE DETECT); UR COCAINE QUAL NONE DETECTED (NONE DETECT); UR METHADONE QUAL NONE DETECTED (NONE DETECT); UR METHAMPHETAMINE QUAL NONE DETECTED (NONE DETECT); UR OPIATES QUAL NONE DETECTED (NONE DETECT); UR OXYCODONE QUAL NONE DETECTED (NONE DETECT); UR PCP QUAL NONE DETECTED (NONE DETECT); UR PROPOXYPHENE QUAL NONE DETECTED (NONE DETECT); UR TCA QUAL NONE DETECTED (NONE DETECT)
[2019-02-08] MEDS ORDERED: MORPHINE IV ONE (11:28)
[2019-02-08] MEDS ORDERED: ZOFRAN IV ONE (11:28)
--- NOTE | 2019-02-08 11:31 | PROVIDER DOCUMENTATION ---
HPI-General Adult - General Chief Complaint: High Blood Sugar Stated Complaint: BS HIGH Time Seen by Provider: 02/08/19 10:30 Source: patient Allergies/Adverse Reactions: Patient Allergies Allergy/AdvReac Type Severity Reaction Status Date / Time ceftriaxone sodium * Allergy SHORTNESS Verified 01/02/19 09:47 [From Rocephin] OF BREATH shellfish derived Allergy ANAPHYLAXIS Verified 01/02/19 09:47 aspirin AdvReac NAUSEA Verified 01/02/19 09:47 Home Medications: Home Medication List Medication Instructions Recorded Confirmed Last Taken Type Epinephrine 0.3 mg IM PRN PRN 06/17/18 02/08/19 Unknown History Metformin [Glucophage] 1,000 mg PO BID 06/17/18 02/08/19 07/28/18 History Calcium 1 tab PO DAILY 12/02/18 02/08/19 Unknown History Insulin Degludec [Tresiba 75 unit SQ DAILY 12/02/18 02/08/19 Unknown History Flextouch U-100] Insulin Regular, Human [Novolin R] 15 unit SQ TID CC 12/02/18 02/08/19 Unknown History Albuterol Sulfate Inhaler 2 inh INH PRN PRN 02/08/19 02/08/19 Unknown History [Ventolin Hfa] Albuterol [Albuterol Neb] 1 inh INH Q4-6H PRN PRN 02/08/19 02/08/19 Unknown History Montelukast Sodium 1 tab PO DAILY 02/08/19 02/08/19 Unknown History - History of Present Illness -Gen Adult Nature of Presenting Problems: Patient is a 53 yobf with a hx of T1DM who complains of elevated blood glucose levels, blurry vision, headache, nausea, "dry mouth", polyuria, abdominal pain, and generalized weakness x 2 days. Denies fever, cough, dysuria, or any other complaints. She is neurologically intact. Review of Systems - Adult - REVIEW OF SYSTEMS - ADULT Constitutional: reports: no symptoms reported. denies: chills, fever Eyes: reports: see HPI, blurred vision Ears, Nose, Mouth & Throat: reports: see HPI, other ("dry mouth") Cardiovascular: reports: no symptoms reported Respiratory: reports: no symptoms reported Gastrointestinal: reports: see HPI, abdominal pain, nausea Genitourinary: reports: see HPI, other (polyuria) Musculoskeletal: reports: see HPI (generalized weakness) Integumentary: reports: no symptoms reported Neurological: reports: see HPI, headache/migraines, other (blurry vision). denies: loss of balance, numbness, paresthesia, seizure, slurred speech, syncope Psychiatric: reports: no symptoms reported Endocrine: reports: increased thirst, polyuria, other (high blood sugar) Hematologic/Lymphatic: reports: no symptoms reported Allergic/Immunologic: reports: no symptoms reported All Other Systems: Reviewed and Negative Past History - Adult - PAST MEDICAL HISTORY-ADULT Review of Records: reports: Nursing Assessment Review, Medications Reviewed, Social history reviewed & non-contributory. Major Childhood Illnesses: reports: denies history Cardiovascular: reports: hyperlipidemia Respiratory: reports: asthma Gastrointestinal: reports: denies history Obstetrical/Gynecological: reports: denies history Genitourinary: reports: denies history Musculoskeletal: reports: chronic pain (back), neck/back injury Neurological: reports: headaches/migraines Endocrine/Immune: reports: Diabetes Diabetes Type: Type 1 Diabetes controlled by:: Insulin Dependent Other Conditions: reports: denies history, MRSA - PRIOR SURGERIES/PROCEDURES Surgical/Procedure History: reports: appendectomy, hysterectomy, BTL - IMMUNIZATION STATUS Childhood Immunizations: See Nurse Assessment Flu Vaccine: See Nurse Assessment - FAMILY HISTORY Family History: reviewed, not pertinent - SOCIAL HISTORY Smoking: cigarettes, less than 1 pack/day Physical Exam-General - PHYSICAL EXAM-ADULT Initial Vital Signs Reviewed: Yes - CONSTITUTIONAL General Appearance: alert, no apparent distress. negative: lethargic, slow to respond - EYES Eyes: PERRL/EOMI, pink conjunctivae - HEAD, EARS, NOSE, MOUTH & THROAT HENMT: normocephalic/atraumatic, moist mucous membranes - NECK Neck: non-tender, full range of motion, supple, normal inspection - RESPIRATORY Respiratory: chest non-tender, no pleuratic chest pain, no respiratory distress, no accessory muscle use, wheezing (mild expiratory) - CARDIOVASCULAR Cardiovascular: normal peripheral pulses, no gallop, no murmur, tachycardia - GASTROINTESTINAL (ABDOMEN) Abdominal Exam: normal bowel sounds, soft, no organomegaly, no pulsatile mass, tenderness (Moderate diffuse). negative: distended, guarding, rigid, rebound - MUSCULOSKELETAL Back Exam: normal inspection Extremity: normal range of motion, non-tender, normal gait, normal inspection - SKIN Integumentary: normal color, warm/dry. negative: cyanosis, diaphoresis, jaundice, mottled, pallor - NEUROLOGIC Neurologic: grossly normal, no motor/sensory deficits - PSYCHIATRIC Psych/Mental Status: normal mood/affect, normal thought content, normal thought process, oriented x 3 Progress - PLAN OF CARE/RESULTS Progress/Plan/Lab Results: Vital Signs - 8 hr 02/08/19 10:22 Temperature 98 F Pulse Rate 116 H Respiratory Rate 18 Blood Pressure 134/89 O2 Sat by Pulse Oximetry 99 Laboratory Results - last 24 hr 02/08/19 02/08/19 02/08/19 10:37 10:40 10:52 WBC RBC Hgb Hct MCV MCH MCHC RDW Std Deviation Plt Count MPV Specimen Type ARTERIAL Sample Site L RADIAL pH 7.18 L* pCO2 26 L pO2 96 HCO3 11.6 L Base Excess -17.0 L Oxyhemoglobin 95.0 ABG O2 Sat (Calculated) 20.6 ABG O2 Saturation 98.4 ABG Carboxyhemoglobin 2.10 ABG Methemoglobin 1.4 Ty Test YES A-a O2 Difference 21.0 Total Hemoglobin 15.4 Lactate 1.50 Blood Gas Modality ROOM AIR FiO2 % 21.0 POC Glucose 500 H D Urine Source CLEAN CATCH Urine Color YELLOW Urine Clarity CLEAR Urine pH 6.5 Ur Specific [place] 1.015 Urine Protein TRACE A Urine Ketones 3+(Large) A Urine Blood NEGATIVE Urine Nitrite NEGATIVE Urine Bilirubin NEGATIVE Urine Urobilinogen NORMAL Urine Microscopic RBC <10 Urine WBC NEGATIVE Urine Microscopic WBC <10 Ur Epithelial Cells <10 Urine Crystals NONE SEEN Urine Bacteria NEGATIVE Urine Casts NONE SEEN Urine Yeast NONE SEEN Urine Glucose 3+(500 mg/dL) A Urine Opiates Screen Ur Oxycodone Screen Urine Methadone Screen U Propoxyphene Qual Ur Barbituates Screen Ur Tricyclics Screen Ur Phencyclidine Scrn Ur Amphetamines Screen U Methamphetamines Scrn U Benzodiazepines Scrn Urine Cocaine Screen U Cannabinoids Screen 02/08/19 02/08/19 10:56 11:00 WBC 4.94 RBC 5.11 Hgb 14.6 Hct 46.0 MCV 90.0 MCH 28.6 MCHC 31.7 L RDW Std Deviation 14.2 Plt Count 374 MPV 11.2 H Specimen Type Sample Site pH pCO2 pO2 HCO3 Base Excess Oxyhemoglobin ABG O2 Sat (Calculated) ABG O2 Saturation ABG Carboxyhemoglobin ABG Methemoglobin Ty Test A-a O2 Difference Total Hemoglobin Lactate Blood Gas Modality FiO2 % POC Glucose Urine Source Urine Color Urine Clarity Urine pH Ur Specific [place] Urine Protein Urine Ketones Urine Blood Urine Nitrite Urine Bilirubin Urine Urobilinogen Urine Microscopic RBC Urine WBC Urine Microscopic WBC Ur Epithelial Cells Urine Crystals Urine Bacteria Urine Casts Urine Yeast Urine Glucose Urine Opiates Screen NONE DETECTED Ur Oxycodone Screen NONE DETECTED Urine Methadone Screen NONE DETECTED U Propoxyphene Qual NONE DETECTED Ur Barbituates Screen NONE DETECTED Ur Tricyclics Screen NONE DETECTED Ur Phencyclidine Scrn NONE DETECTED Ur Amphetamines Screen NONE DETECTED U Methamphetamines Scrn NONE DETECTED U Benzodiazepines Scrn NONE DETECTED Urine Cocaine Screen NONE DETECTED U Cannabinoids Screen NONE DETECTED Orders Category Date Time Status Cardiac Monitoring DIRECTED Care 02/08/19 10:40 Active ED: Urine Bedside NOW Care 02/08/19 10:40 Active FSBS [Finger Stick Blood Sugar (ED)] DIRECTED Care 02/08/19 10:25 Active FSBS/Accucheck Result Q1H Care 02/08/19 10:40 Active Saline Loc NOW Care 02/08/19 10:40 Active Vital Signs Order Q1H Care 02/08/19 10:40 Active CHEST-2 VIEWS [RAD] Stat Exams 02/08/19 10:46 Ordered ABG [RESP] Routine Lab 02/08/19 10:52 Completed ACETONE SERUM [CHEM] Stat Lab 02/08/19 11:00 Received CBC WITH NO DIFF [HEME] Stat Lab 02/08/19 11:00 Completed CK PROFILE [SP CHEM] Stat Lab 02/08/19 11:00 Received COMPREHENSIVE METABOLIC PANEL [CHEM] Stat Lab 02/08/19 11:00 Received LACTATE, PLASMA [CHEM] Stat Lab 02/08/19 11:00 Received MAGNESIUM [CHEM] Stat Lab 02/08/19 11:00 Received PHOSPHORUS [CHEM] Stat Lab 02/08/19 11:00 Received TEST-URINE [PREG] Stat Lab 02/08/19 10:40 Received TROPONIN T Stat Lab 02/08/19 11:[address] [URINALYSIS] Stat Lab 02/08/19 10:40 Completed URINE DRUG SCREEN PL Stat Lab 02/08/19 10:56 Completed URINE MICROSCOPIC [URINALYSIS] Stat Lab 02/08/19 10:40 Completed 0.9% Sodium Chloride Inj [Ns] 1,000 ml Med 02/08/19 10:46 Active IV 999 mls/hr Insulin Human Regular [Humulin R] Med 02/08/19 10:46 Discontinued 10 unit IV NOW ONE EKG [EKG] Routine Ther 02/08/19 10:40 Ordered Pt in agreement with admission plan. Result Diagrams: 02/08/19 11:00 02/08/19 11:00 - EKG 1 Time of EKG reading by physician:: 11:30 EKG Read and Signed by:: Roni Butler EKG Interpretation (*Must complete 3 of following elements*): Abnormal Rate: 105 Rhythm: sinus tachycardia QRS: normal ST Wave: normal - XRAY 1 XRAY Study: Chest ([facility] - [address] [facility] [address] [facility] [address] [address] [facility] - [address] [place] [address] Department of Imaging Patient: LEILANI ANAYA Date: 02/08/19#: [id number] : 1965ADM Status: REG [facility]#: [id number] Age/Sex: 53/FRoom/Bed: Loc: P.ED Ordering Physician: Pelon Henderson Family Physician: Leobardo Jenkins DO Reason for Procedure: hyperglycemia _ __ Signed EXAM: CHEST-2 VIEWS HISTORY: hyperglycemia TECHNIQUE: two views COMPARISON: 01/02/20192018 FINDINGS: The lungs are well expanded. The heart is not enlarged. The vessels are not distended. There are no infiltrates. No pleural effusions. Right-sided granuloma. IMPRESSION: No acute abnormality. Electronically signed by Pipo Sheehan 02/08/2019 12:41 PM 02/08/19 1241 Interpreting Physician: Pipo Sheehan MD Dictated Date/Time: 02/08/19 1237 cc: Pelon Henderson; Leobardo Jenkins DO) - CONSULTS/PCP/HOSPITALIST Notification #1 *Consult/PCP/Hospitalist*: Dr. Fierro Time Discussed: 11:41 Reason/Comments: admission- DKA Consult Disposition: Will see in ED, Admit Departure - Departure Date of Disposition Decision: 02/08/19 Time of Disposition Decision: 11:40 DIAGNOSIS: Diabetic ketoacidosis Qualifiers: Diabetes mellitus type: type 1 Diabetes mellitus complication detail: without coma Qualified Code(s): E10.10 - Type 1 diabetes mellitus with ketoacidosis without coma Disposition: ADMITTED INPATIENT 09 Certified Medical Emergency: Emergent Condition: Serious Referrals and Follow-Ups: Leobardo Jenkins DO [Primary Care Provider] - - Critical Care Note This patient required my direct & personal management of CC.: Yes Total Time (mins): 35 Critical Care Statement: This patient required my direct personal management to treat or rule out processes, the absence of which, could potentiallly result in sudden, clinically significant life or limb threatening deterioration. Attestation - Physician/ SHAW Attestation Patient care was provided by Advanced Practice Provider:: Yes Advanced Practice Provider:: Pelon Henderson Advanced Practice Provider documentation review:: The Mid-level provider doc umentation, treatment plan and medical decision making was reviewed by the physician who agrees with all treatment and medical decision making by the MLP. The physician spent face to face time with patient:: No Advanced Practice Provider documentation review:: Supervising physician onsite and consulted in the evaluation and care of this patient. The physician did not have a face to face encounter with the patient.
[2019-02-08] MEDS ORDERED: D50W SYRINGE IV PRN ×3 (11:35→12:34)
[2019-02-08] MEDS ORDERED: HUMULIN R 100 UNIT in NS 100 ML IV SCH (11:45)
[2019-02-08 12:11] LABS: ACETONE SERUM LARGE (NEGATIVE)
[2019-02-08 12:15] LABS: AGAP 28; ALBUMIN 4.8 g/dL (3.5-5.0); ALKALINE PHOSPHATASE 148 U/L (32-104); CALCIUM 10.1 mg/dL (8.8-10.2); CHLORIDE 90 mmol/L (98-107); CK PROFILE 42 U/L (24-173); COSMO 304; CREATININE 1.2 mg/dL (0.5-0.9); ESTIMATED GFR 47; GOT 14 U/L (10-30); GPT 16 U/L (10-36); MAGNESIUM 1.9 mg/dL (1.5-2.7); PHOSPHORUS 4.3 mg/dL (2.7-4.5); POTASSIUM 5.9 mmol/L (3.5-5.1); SODIUM 128 mmol/L (136-145); TCO2 10 mmol/L (25-35)
[2019-02-08 12:16] LABS: BUN 19 mg/dL (8-22)
[2019-02-08 12:25] LABS: GLUCOSE 911 mg/dL (70-104)
[2019-02-08] MEDS ORDERED: POTASSIUM CHLORIDE 20% LIQUID PO PRN (12:34)
[2019-02-08] MEDS ORDERED: SODIUM PHOSPHATE 30 MMOL in D5W 250 ML IV PRN (12:34)
[2019-02-08] MEDS ORDERED: D5 NS 1,000 ML IV PRN (12:34)
[2019-02-08] MEDS ORDERED: ZOFRAN IV PRN (12:34)
[2019-02-08] MEDS ORDERED: COMPAZINE IV PRN (12:34)
[2019-02-08] MEDS ORDERED: TYLENOL PO PRN (12:34)
[2019-02-08] MEDS ORDERED: SODIUM BICARBONATE 8.4% 100 MEQ in STERILE WATER INJ. 500 ML IV PRN (12:34)
[2019-02-08] MEDS ORDERED: POTASSIUM CHLORIDE 20 MEQ/SWI 20 MEQ/100 ML IVPB IV PRN (12:34)
[2019-02-08] MEDS ORDERED: POTASSIUM CHLORIDE 10% LIQUID PO PRN (12:34)
[2019-02-08] MEDS ORDERED: MAGNESIUM SULFATE 2 GM/S.W.I. 2 GM/50 ML IVPB IV PRN (12:34)
[2019-02-08] MEDS ORDERED: POTASSIUM CHLORIDE 20 MEQ/SWI 40 MEQ/200 ML IVPB IV PRN (12:34)
--- NOTE | 2019-02-08 12:43 | Diag Imaging Result Doc PS360 ---
EXAM: CHEST-2 VIEWS HISTORY: hyperglycemia TECHNIQUE: two views COMPARISON: 01/02/20192018 FINDINGS: The lungs are well expanded. The heart is not enlarged. The vessels are not distended. There are no infiltrates. No pleural effusions. Right-sided granuloma. IMPRESSION: No acute abnormality. Electronically signed by Pipo Sheehan 02/08/2019 12:41 PM
[2019-02-08] MEDS: HUMULIN R 100 UNIT in NS 100 ML IV SCH ×3 (13:01→16:35)
--- NOTE | 2019-02-08 13:03 | EKG Report ---
Test Performed on : 02/08/2019 11:30:37 AM Test Reason : r/o dka Blood Pressure : / mmHG Vent. Rate : 105 BPM Atrial Rate : 105 BPM P-R Int : 116 ms QRS Dur : 096 ms QT Int : 360 ms P-R-T Axes : 077 087 041 degrees QTc Int : 475 ms Sinus tachycardia. Biatrial enlargement Abnormal ECG When compared with ECG of 02-JAN-2019 09:42, (Unconfirmed) Nonspecific T wave abnormality has replaced inverted T waves in Inferior leads Unconfirmed Result
[2019-02-08 13:31] LABS: HEMOGLOBIN A1C 15.8 % (4.8-6.0)
[2019-02-08 13:36] LABS: MAGNESIUM 1.8 mg/dL (1.5-2.7); PHOSPHORUS 2.4 mg/dL (2.7-4.5)
[2019-02-08 13:53] LABS: PCO2(98.6) 26 mmHg (35-45); pH(98.6) 7.18 (7.35-7.45)
[2019-02-08] MEDS: NS 1,000 ML IV SCH ×4 (14:28→19:55)
--- NOTE | 2019-02-08 16:07 | HISTORY AND PHYSICAL ---
PRIMARY CARE PROVIDER: Dr. Leobardo Jenkins. CHIEF COMPLAINT: Abdominal discomfort and nausea. HISTORY OF PRESENT ILLNESS: Ms. Katharina Frank is a 53-year-old female who frequently presents to [facility] ER presents with frequent spells of DKA. Currently she has complaints of nausea that started 2 days ago along with some abdominal discomfort. No vomiting just decreased appetite. No shortness of breath. No fevers. No other complaints. Laboratory findings are consistent with diabetic ketoacidosis. She will be started on the DKA protocol and transferred to [facility] ICU secondary to no available ICU beds here. PAST MEDICAL HISTORY: 1. Diabetes mellitus type 1. 2. Frequent DKA. 3. Asthma. 4. Hyperlipidemia. 5. Hypertriglyceridemia. SURGICAL HISTORY: 1. Appendectomy. 2. Hysterectomy. 3. Bilateral tubal ligation. SOCIAL HISTORY: Denies tobacco, alcohol or illicit drug use. Lives with family. FAMILY HISTORY: Mother had breast cancer, stroke, CAD and diabetes. Father's side of family had diabetes and coronary artery disease. ALLERGIES: Ceftriaxone, shellfish and aspirin. HOME MEDICATIONS: 1. Albuterol nebulizers every 4 to 6 hours p.r.n. 2. Calcium 500 mg p.o. daily. 3. Epinephrine intramuscular p.r.n. for anaphylaxis. 4. Metformin 1000 mg p.o. twice daily. 5. Montelukast sodium 10 mg p.o. daily. 6. Insulin 15 units subcu t.i.d. 7. Tresiba insulin 75 units subcu daily. 8. Albuterol inhaled p.r.n. REVIEW OF SYSTEMS: Fourteen point review of systems are complete and all are negative except for those mentioned above HPI. PHYSICAL EXAMINATION: VITAL SIGNS: Temperature 98 degrees, heart rate 91, respiratory rate 18, blood pressure 114/76, O2 saturation 100% on room air. GENERAL: Ms. Katharina Frank is a 53-year-old female she is in no acute distress. She is able answer questions appropriately. HEENT: Atraumatic, normocephalic. Pupils equal, round, reactive to light. Extraocular movements intact. Mucous membranes are dry. NECK: Trachea midline. CARDIOVASCULAR: S1, S2. Regular rate and rhythm. No rubs, gallops, murmurs. No lower extremity edema, +2 dorsalis and radial pulses. Negative JVD or carotid bruits. PULMONARY: Clear to auscultation bilateral breath sounds. No accessory muscle use, work of breathing noted. GI: Soft, nontender, nondistended, positive bowel sounds x4. EXTREMITIES: Moves all extremities equally. Full range of motion. NEURO: A and O x3, follows commands. SKIN: Warm, dry, intact. LABORATORY DATA: White blood cells 4000, hemoglobin 14, hematocrit 46, platelet count 374,000. ABGs pH 7.18, pCO2 26, PO2 96, bicarb 11, base excess -17, saturation 95%, lactate 1.5 that is on room air. Sodium 128, potassium 5.9, BUN 19, creatinine is 1.2 glucose 911, calcium is 10.1, phosphorus 4.3, magnesium 1.9, bilirubin 0.40, AST 14, ALT 16, CK 42, troponin less than 0.01, albumin 4.8, serum lactate 1.7. Urinalysis trace protein, 3+ ketones, 3+ glucose, urine drug screen negative, acetone large. IMAGING: Chest x-ray nothing acute. EKG sinus tachycardia rate 105, QTc was 475. ASSESSMENT/PLAN: 1. Type 1 diabetes mellitus with frequent bouts of diabetic ketoacidosis currently in diabetic ketoacidosis, will treat per protocol, transfer to ICU, IV fluids, insulin, electrolyte replacement. 2. Nausea with antiemetics ordered. 3. Asthma no exacerbation. 4. Hyperlipidemia and hypertriglyceridemia. Do not see where she is on any medication for that at home. 5. Deep venous thrombosis prophylaxis SCDs . Dictated by FLAVIA Phillips for Terell Fierro MD cc: FLAVIA Phillips MD
[2019-02-08 16:35] LABS: AGAP 11; BUN 15 mg/dL (8-22); CHLORIDE 109 mmol/L (98-107); COSMO 286; CREATININE 0.9 mg/dL (0.5-0.9); ESTIMATED GFR > 60; GLUCOSE 207 mg/dL (70-104); PHOSPHORUS 1.8 mg/dL (2.7-4.5); POTASSIUM 4.4 mmol/L (3.5-5.1); SODIUM 140 mmol/L (136-145); TCO2 20 mmol/L (25-35)
[2019-02-08 16:57] LABS: BE -5.2 mmoll (-3.0-3.0); BLOOD TYPE ARTERIAL; HCO3-(ACT) 20.8 mmoll (20.0-26.0); METHB 1.5 % (0.0-1.5); O2(CT) 18.6 mL/dL (15.0-23.0); O2HB 95.2 % (95.0-99.0); PCO2(98.6) 37 mmHg (35-45); PO2(98.6) 95 mmHg (60-100); SAMPLE BLOOD; THB 13.8 g/dL (11.5-17.4); pH(98.6) 7.34 (7.35-7.45)
[2019-02-08 17:00] LABS: ALLEN TEST YES; MODALITY ROOM AIR
[2019-02-08] MEDS ORDERED: LANTUS INSULIN SUBQ ONE (17:54)
--- NOTE | 2019-02-08 21:46 | HISTORY AND PHYSICAL ---
ADDENDUM: Patient seen and examined by myself. Full note dictated and discussed with nurse practitioner. Patient was admitted to the hospital noting that her blood sugars were elevated. She felt nauseated. She has not really been able to keep down anything orally. When asked, she notes that her blood sugars are typically 500 and 600s at home. She was significantly acidotic. We are going to place her in the hospital. We will place her on DKA protocol, although this certainly may be more lactic acidosis due to starvation ketosis given the fact that her blood sugars have been that high for several months. A1c is around 14.5. Her blood sugars are typically in the 400 and 500 range. Her A1c is [address] her on an insulin drip, get her blood sugars better controlled, and then we will attempt to adjust her medications at home and have nutrition discussed with her the proper diet. cc: Terell Fierro MD MTDD
[2019-02-09] MEDS: NS 1,000 ML IV SCH ×4 (02:24→22:42)
[2019-02-09 06:38] LABS: AGAP 10; ALBUMIN 3.6 g/dL (3.5-5.0); ALKALINE PHOSPHATASE 80 U/L (32-104); BUN 13 mg/dL (8-22); CALCIUM 8.9 mg/dL (8.8-10.2); CHLORIDE 110 mmol/L (98-107); COSMO 281; CREATININE 0.6 mg/dL (0.5-0.9); ESTIMATED GFR > 60; GLUCOSE 65 mg/dL (70-104); GOT 11 U/L (10-30); GPT 9 U/L (10-36); MAGNESIUM 1.6 mg/dL (1.5-2.7); POTASSIUM 3.7 mmol/L (3.5-5.1); SODIUM 142 mmol/L (136-145); TCO2 22 mmol/L (25-35); TOTAL PROTEIN 6.5 g/dL (6.3-8.3)
[2019-02-09 07:07] LABS: HEMATOCRIT 38.2 % (37.0-47.0); HEMOGLOBIN 12.2 g/dL (12.0-16.0); MCH 28.2 PG (27-31); MCHC 31.9 g/dL (33-37); MCV 88.2 FL (81-99); MPV 10.2 FL (7.4-10.4); RBC 4.33 XMIL (4.2-5.4); RDW 13.7 % (11.5-14.5); WBC 5.12 X1000 (4.8-10.8)
[2019-02-09] MEDS ORDERED: ALBUTEROL NEB INH PRN (07:58)
[2019-02-09] MEDS: TRESIBA FLEXTOUCH U-100 SUBQ SCH (09:25)
[2019-02-09] MEDS: GLUCOPHAGE PO SCH ×2 (09:25→22:41)
--- NOTE | 2019-02-09 09:30 | PROGRESS NOTE ---
DATE: 02/09/2019 SUBJECTIVE: Patient reports feeling a little bit and dizzy. Denies any fever or chills. OBJECTIVE: Vital Signs: Temperature 98.2 degrees, heart rate 62, respiratory 12, blood pressure 100/59, O2 saturation 100% on room air. General: This is a chronically ill-appearing, 53-year- old female, lying in bed, in no acute distress. Cardiovascular: S1, S2 heard. No murmurs, gallops, or rubs. Regular rate and rhythm. Respiratory: Clear bilaterally to auscultation. No work of breathing or using accessory muscles. Abdomen: Soft, nontender to palpation. Bowel sounds present. No organomegaly. Extremities: No clubbing, cyanosis, or edema. Peripheral pulses present in both legs. Neurological: Patient is alert and oriented x3. Moves 4 extremities. LABORATORY DATA: CBC is okay. BMP reveals anion gap of 10 with bicarbonate 22, chloride 110, glucose 65. Hemoglobin A1c 15.9. ASSESSMENT AND PLAN: 1. Uncontrolled diabetes mellitus type 1. 2. Diabetic ketoacidosis. 3. Nausea and vomiting. 4. Asthma. 5. Hypertriglyceridemia. PLAN: The patient was admitted for DKA. Now that condition is resolved. We are going to restart his Tresiba but we are going to increase the dose to 10 units. We will continue with IV fluids. We will start diabetic diet. We will transfer this patient out of the intensive care unit. We will check electrolytes and replete them if needed. According to the patient, Dr. Love, supervisor screen printing in [place], is planning to send an insulin pump. Then Tresiba will be discontinued. At this point, when patient is more stable, we will restart home medications and transfer the patient out of the intensive care unit today. Note if the patient continues to be stable and labs within normal limits, we will discharge her tomorrow. cc: Tom Perdue MD
[2019-02-09] MEDS: SINGULAIR PO SCH (09:38)
[2019-02-09] MEDS: HUMULIN R (PARKWAY) SUBQ SCH ×2 (16:36→22:42)
[2019-02-10] MEDS: HUMULIN R (PARKWAY) SUBQ SCH ×3 (00:31→11:01)
[2019-02-10 07:42] VITALS: BP 136/97
[2019-02-10] MEDS ORDERED: INSULIN PEN NEEDLES ONE (09:18)
[2019-02-10] MEDS: SINGULAIR PO SCH (09:20)
[2019-02-10] MEDS: TRESIBA FLEXTOUCH U-100 SUBQ SCH (09:20)
[2019-02-10] MEDS: GLUCOPHAGE PO SCH (09:20)
--- NOTE | 2019-02-11 14:34 | DISCHARGE SUMMARY ---
ADMISSION DATE: 02/08/2019 DISCHARGE DATE: 02/10/2019 ADMISSION DIAGNOSES: 1. Type 1 diabetes mellitus with frequent bouts of diabetic ketoacidosis, currently in diabetic ketoacidosis. 2. Nausea, intractable. 3. Asthma, no exacerbation. 4. Hyperlipidemia and hypertriglyceridemia. DISCHARGE DIAGNOSES: 1. Uncontrolled diabetes mellitus type 1. 2. Diabetic ketoacidosis. 3. Nausea and vomiting. 4. Asthma. 5. Hypertriglyceridemia. CONSULTATIONS: None. SURGERIES AND PROCEDURES: None. HOSPITAL COURSE: Ms. Katharina Frank is a 53-year-old female who presented to [facility] ER with complaints of frequent spells of DKA, currently complaining of nausea that had started 2 days prior to admission, along with some abdominal discomfort. She had decreased appetite. She denies shortness of breath, fevers, there are just no other complaints. Laboratory data was very consistent with diabetic ketoacidosis and she had a blood glucose level that was 911. She was initiated on the diabetic ketoacidosis protocol, transferred to the ICU where she stabilized out and was transferred to the floor. Now, she is discharged. VITAL SIGNS: Temperature 98.1 degrees, heart rate 76, respiratory rate 16, blood pressure 136/97, O2 saturation 100% on room air. DISCHARGE LAB DATA: These are all from the 09 of February. White blood cells 5,000, hemoglobin 12, hematocrit 38, platelet count 357,000. Sodium 142, potassium 3.7, BUN 13, creatinine 0.6, glucose today was 206, hemoglobin A1c was 15.8, calcium 8.9, magnesium 1.6, bilirubin 0.30, AST 11, ALT 9, albumin 3.6. Urine drug screen was negative. IMAGING: Chest x-ray: No acute findings. EKG: Sinus tachycardia, rate 105, QTc 475. DISCHARGE MEDICATIONS: 1. Albuterol inhaled every 4-6 hours p.r.n. 2. Calcium 500 mg p.o. daily. 3. Rescue epinephrine. 4. Metformin 1000 mg p.o. twice daily. 5. Montelukast sodium 10 mg p.o. daily. 6. Regular insulin 15 units subcutaneous t.i.d. 7. Albuterol inhaled p.r.n. DISCHARGE DIET: Diabetic. DISCHARGE ACTIVITY: As tolerated. DISCHARGE INSTRUCTIONS: If her condition changes, contact a physician and/or return to the emergency department. Changes may include, but are not limited to, shortness of breath, increased fatigue, excessive bleeding, unexplained weight loss or gain, unmanageable pain, signs or symptoms of infection. PHYSICIAN FOLLOW UP: Dr. Jenkins. DISCHARGE DISPOSITION: Home. Dictated by FLAVIA Phillips for Tom Perdue MD Addendum: Patient seen and examined by myself. Agree with FLAVIA note. It reflects my assessment and plan. Patient is being released in stable condition to home. Will be seen by PCP in a week. cc: FLAVIA Phillips MD MTDD
== END 2019-02-10 13:38 | disposition home or self-care (01) | DRG 639 ==
LOC: P.ED 10:17 → SUATTDRO 13:09 → ICU 13:09 → P.ICU 13:20 → P.EDIPHOLD 13:20 → P.MEDSURG 02-09 15:01
PROVIDERS: ATTEND Internal Medicine

== ENCOUNTER 2019-02-19 19:01 | Inpatient (IN) ==
[2019-02-19] MEDS ORDERED: HUMULIN R IV ONE (19:29)
[2019-02-19] MEDS ORDERED: NS 1,000 ML IV ONE ×2 (19:29→21:45)
[2019-02-19 19:49] LABS: HEMATOCRIT 48.6 % (37.0-47.0); HEMOGLOBIN 15.5 g/dL (12.0-16.0); MCH 28.1 PG (27-31); MCHC 31.9 g/dL (33-37); MCV 88.2 FL (81-99); MPV 10.6 FL (7.4-10.4); RBC 5.51 XMIL (4.2-5.4); RDW 14.4 % (11.5-14.5); WBC 6.3 X1000 (4.8-10.8)
[2019-02-19 20:01] LABS: ACETONE SERUM MODERATE (NEGATIVE)
[2019-02-19 20:10] LABS: ESTIMATED GFR 43
[2019-02-19 20:21] LABS: AGAP 25; ALBUMIN 5.3 g/dL (3.5-5.0); ALKALINE PHOSPHATASE 139 U/L (32-104); BUN 18 mg/dL (8-22); CALCIUM 10.8 mg/dL (8.8-10.2); CHLORIDE 93 mmol/L (98-107); CK PROFILE 42 U/L (24-173); COSMO 293; CREATININE 1.3 mg/dL (0.5-0.9); GLUCOSE 572 mg/dL (70-104); GOT 21 U/L (10-30); GPT 28 U/L (10-36); PHOSPHORUS 3.5 mg/dL (2.7-4.5); POTASSIUM 4.9 mmol/L (3.5-5.1); SODIUM 132 mmol/L (136-145); TCO2 14 mmol/L (25-35); TOTAL PROTEIN 9.4 g/dL (6.3-8.3)
--- NOTE | 2019-02-19 20:56 | PROVIDER DOCUMENTATION ---
This chart was entered by Ann Jett Scribe, acting as scribe for Tomas Ellison MD. HPI-General Adult - General Chief Complaint: High Blood Sugar Stated Complaint: BP PROBLEMS/BODY ACHES Time Seen by Provider: 02/19/19 19:03 Source: patient Allergies/Adverse Reactions: Patient Allergies Allergy/AdvReac Type Severity Reaction Status Date / Time ceftriaxone sodium * Allergy SHORTNESS Verified 02/19/19 19:22 [From Rocephin] OF BREATH shellfish derived Allergy ANAPHYLAXIS Verified 02/19/19 19:22 aspirin AdvReac NAUSEA Verified 02/19/19 19:22 Home Medications: Home Medication List Medication Instructions Recorded Confirmed Last Taken Type Metformin [Glucophage] 1,000 mg PO BID 06/17/18 02/19/19 07/28/18 History Albuterol [Albuterol Neb] 1 inh INH Q4-6H PRN PRN 02/08/19 02/19/19 Unknown History Insulin Degludec [Tresiba 100 units SQ DAILY 02/19/19 02/19/19 Unknown History Flextouch U-100] Insulin Lispro [Humalog] 0 unit SQ DIRECTED 02/19/19 02/19/19 Unknown History - History of Present Illness -Gen Adult Nature of Presenting Problems: pt is a 53 yr old female with history of diabetes presenting with 1 day complaint of nausea, diarrhea, body aches, chills and headache. pt reports blood sugar elevated tonight. pt reports exposed to flu at home. Location of Pain/Injury: reports: head, generalized Pain Radiation: reports: no radiation Quality of Pain: reports: aching Severity: reports: moderate Onset/Duration: reports: 24 hours ago Timing: reports: still present Context/Activities at Onset: reports: light activity Modifying Factors: improves with: nothing Associated Symptoms: reports: diarrhea, dizziness, fatigue, fever/chills, loss of appetite, malaise, muscle aches, nausea, weakness. denies: genitourinary problems, sinus congestion/drainage, shortness of breath, vomiting Similar Symptoms Previously?: No Recently seen or treated by another doctor?: No - Diabetes Related Context Context: reports: high blood sugar, prior DKA hospitalization Review of Systems - Adult - REVIEW OF SYSTEMS - ADULT Constitutional: reports: chills, fever, fatique Eyes: denies: blurred vision, double vision Ears, Nose, Mouth & Throat: denies: ear pain, sinus problem, throat pain Cardiovascular: denies: chest pain, palpitations, syncope Respiratory: denies: cough, shortness of breath Gastrointestinal: reports: abdominal pain, nausea. denies: diarrhea, vomiting Genitourinary: denies: dysuria, frequency, flank pain Musculoskeletal: reports: muscle aches Integumentary: reports: no symptoms reported Neurological: reports: headache/migraines. denies: dizziness/vertigo, syncope Psychiatric: reports: no symptoms reported Endocrine: reports: no symptoms reported Hematologic/Lymphatic: reports: no symptoms reported Allergic/Immunologic: reports: no symptoms reported All Other Systems: Reviewed and Negative Past History - Adult - PAST MEDICAL HISTORY-ADULT Review of Records: reports: Old Records Reviewed, Nursing Assessment Review, Medications Reviewed, Social history reviewed & non-contributory. Major Childhood Illnesses: reports: denies history Cardiovascular: reports: hyperlipidemia Respiratory: reports: asthma Gastrointestinal: reports: denies history Obstetrical/Gynecological: reports: denies history Genitourinary: reports: denies history Musculoskeletal: reports: chronic pain (back), neck/back injury Neurological: reports: headaches/migraines Endocrine/Immune: reports: Diabetes Other Conditions: reports: denies history, MRSA - PRIOR SURGERIES/PROCEDURES Surgical/Procedure History: reports: appendectomy, hysterectomy, BTL - IMMUNIZATION STATUS Childhood Immunizations: See Nurse Assessment Flu Vaccine: See Nurse Assessment - FAMILY HISTORY Family History: reviewed, not pertinent - SOCIAL HISTORY Smoking: denies Substance Use: denies Living Situation: family Physical Exam-General - PHYSICAL EXAM-ADULT Initial Vital Signs Reviewed: Yes - CONSTITUTIONAL General Appearance: alert, no apparent distress, thin - EYES Eyes: PERRL/EOMI - HEAD, EARS, NOSE, MOUTH & THROAT HENMT: other. negative: moist mucous membranes (dry oral mucosa, fruity breath) - NECK Neck: non-tender, full range of motion, supple, normal inspection - RESPIRATORY Respiratory: chest non-tender, lungs clear, normal breath sounds - CARDIOVASCULAR Cardiovascular: normal peripheral pulses, regular rate, rhythm, no edema - GASTROINTESTINAL (ABDOMEN) Abdominal Exam: normal bowel sounds, non tender, soft - LYMPHATIC Lymphatic: no adenopathy - MUSCULOSKELETAL Back Exam: normal inspection, no CVA tenderness, no vertebral tenderness Extremity: normal range of motion, non-tender, normal gait, normal inspection - SKIN Integumentary: normal color, normal turgor, warm/dry - NEUROLOGIC Neurologic: grossly normal, no motor/sensory deficits - PSYCHIATRIC Psych/Mental Status: normal mood/affect Progress - PLAN OF CARE/RESULTS Progress/Plan/Lab Results: Vital Signs - 8 hr 02/19/19 19:18 Temperature 98.2 F Pulse Rate 108 H Respiratory Rate 20 Blood Pressure 126/89 O2 Sat by Pulse Oximetry 98 Laboratory Results - last 24 hr 02/19/19 19:35 WBC 6.30 RBC 5.51 H Hgb 15.5 Hct 48.6 H MCV 88.2 MCH 28.1 MCHC 31.9 L RDW Std Deviation 14.4 Plt Count 385 MPV 10.6 H Orders Category Date Time Status Cardiac Monitoring DIRECTED Care 02/19/19 19:25 Active FSBS/Accucheck Result NOW Care 02/19/19 19:03 Completed FSBS/Accucheck Result Q1H Care 02/19/19 19:25 Completed FSBS/Accucheck Result Q1H Care 02/19/19 19:30 Active Saline Loc DIRECTED Care 02/19/19 19:29 Completed Saline Loc NOW Care 02/19/19 19:25 Active NPO Diet 02/19/19 19:29 Active ABG [RESP] Routine Lab 02/19/19 19:25 Ordered ACETONE SERUM [CHEM] Stat Lab 02/19/19 19:35 Received CBC WITH NO DIFF [HEME] Stat Lab 02/19/19 19:35 Completed CK PROFILE [SP CHEM] Stat Lab 02/19/19 19:35 Received COMPREHENSIVE METABOLIC PANEL [CHEM] Stat Lab 02/19/19 19:35 Received LACTATE, PLASMA [CHEM] Stat Lab 02/19/19 19:35 Received LIPASE [CHEM] Stat Lab 02/19/19 19:35 Received MAGNESIUM [CHEM] Stat Lab 02/19/19 19:35 Received PHOSPHORUS [CHEM] Stat Lab 02/19/19 19:35 Received TROPONIN T Stat Lab 02/19/19 19:[address] W/POSS RFLX CULT [URINALYSIS] Stat Lab 02/19/19 19:29 Uncollected URINE DRUG SCREEN PL Stat Lab 02/19/19 19:25 Uncollected 0.9% Sodium Chloride Inj [Ns] 1,000 ml Med 02/19/19 19:29 Active IV 999 mls/hr Insulin Human Regular [Humulin R] Med 02/19/19 19:29 Discontinued 12 unit IV NOW ONE EKG [EKG] Routine Ther 02/19/19 19:25 Ordered Result Diagrams: 02/19/19 19:35 02/19/19 19:35 - CONSULTS/PCP/HOSPITALIST Notification #1 *Consult/PCP/Hospitalist*: Dr. Fierro, hospitalist Time Discussed: 21:40 Consult Disposition: Admit Departure - Departure Date of Disposition Decision: 02/19/19 Time of Disposition Decision: 21:45 DIAGNOSIS: Influenza Diabetic ketoacidosis Qualifiers: Diabetes mellitus type: type 2 Diabetes mellitus complication detail: without coma Qualified Code(s): E11.10 - Type 2 diabetes mellitus with ketoacidosis without coma Disposition: ADMITTED INPATIENT 09 Certified Medical Emergency: Emergent Condition: Stable Referrals and Follow-Ups: Leobardo Jenkins DO [Primary Care Provider] - - Critical Care Note This patient required my direct & personal management of CC.: Yes Total Time (mins): 150 Critical Care Statement: This patient required my direct personal management to treat or rule out processes, the absence of which, could potentiallly result in sudden, clinically significant life or limb threatening deterioration. Attestation - Physician/ SHAW Attestation Patient care was provided by Advanced Practice Provider:: No The physician spent face to face time with patient:: Yes Advanced Practice Provider documentation review:: Supervising physician onsite a nd consulted in the evaluation and care of this patient. The physician did have a face to face encounter with the patient. This chart was documented by the indicated scribe, (Ann Jett Scribe) and accurately reflects the services I performed and decisions made by me, Tomas Ellison MD, as attested by the provider's signature.
[2019-02-19] MEDS ORDERED: TAMIFLU PO ONE (21:42)
[2019-02-19] MEDS ORDERED: ZOFRAN IV PRN (21:45)
[2019-02-19 21:50] LABS: BLOOD TYPE ARTERIAL; SAMPLE BLOOD
[2019-02-19 21:51] LABS: PCO2(98.6) 26 mmHg (35-45); PO2(98.6) 105 mmHg (60-100); pH(98.6) 7.28 (7.35-7.45)
[2019-02-19 21:52] LABS: BE -12.7 mmoll (-3.0-3.0); HCO3-(ACT) 14.9 mmoll (20.0-26.0); METHB 1.5 % (0.0-1.5); O2(CT) 21.1 mL/dL (15.0-23.0); O2HB 95.4 % (95.0-99.0); THB 15.7 g/dL (11.5-17.4)
[2019-02-19 21:53] LABS: ALLEN TEST YES; MODALITY ROOM AIR
[2019-02-19] MEDS ORDERED: HUMULIN R (PARKWAY) 100 UNITS in NS 100 ML IV SCH (22:00)
[2019-02-19 22:32] LABS: INFLUENZA A NEGATIVE (NEGATIVE); INFLUENZA B NEGATIVE (NEGATIVE)
[2019-02-19] MEDS: TAMIFLU PO SCH (23:23)
[2019-02-19 23:30] LABS: BILIRUBIN URINE NEGATIVE (NEGATIVE); BLOOD URINE TRACE (NEGATIVE); CLARITY SL. CLOUDY (CLEAR); COLOR YELLOW; KETONE URINE 3+(Large) mg/dL (NEGATIVE); LEUKOCYTES URINE TRACE (NEGATIVE); NITRITE URINE NEGATIVE (NEGATIVE); PROTEIN URINE TRACE mg/dL (NEGATIVE); UROBILINOGEN URINE NORMAL
[2019-02-19 23:31] LABS: URINE RBC <10 /HPF (<10); URINE SOURCE CLEAN CATCH
[2019-02-19 23:32] LABS: URINE BACTERIA 2+ /HFP; URINE EPITHELIAL CELLS <10 /HPF (<10); URINE WBC <10 /HPF (<10)
[2019-02-19 23:34] LABS: UR AMPHETAMINES QUAL NONE DETECTED (NONE DETECT); UR BARBITUATES QUAL NONE DETECTED (NONE DETECT); UR BENZODIAZEPIN QUAL NONE DETECTED (NONE DETECT); UR CANNABINOIDS QUAL NONE DETECTED (NONE DETECT); UR COCAINE QUAL NONE DETECTED (NONE DETECT); UR METHADONE QUAL NONE DETECTED (NONE DETECT); UR METHAMPHETAMINE QUAL NONE DETECTED (NONE DETECT); UR OPIATES QUAL NONE DETECTED (NONE DETECT); UR OXYCODONE QUAL NONE DETECTED (NONE DETECT); UR PCP QUAL NONE DETECTED (NONE DETECT); UR PROPOXYPHENE QUAL NONE DETECTED (NONE DETECT); UR TCA QUAL NONE DETECTED (NONE DETECT)
--- NOTE | 2019-02-20 01:00 | EKG Report ---
Test Performed on : 02/20/2019 00:42:03 AM Test Reason : possible DKA Blood Pressure : / mmHG Vent. Rate : 076 BPM Atrial Rate : 076 BPM P-R Int : 114 ms QRS Dur : 088 ms QT Int : 374 ms P-R-T Axes : 069 082 072 degrees QTc Int : 420 ms Normal sinus rhythm. Possible Left atrial enlargement Septal infarct , age undetermined Abnormal ECG When compared with ECG of 08-FEB-2019 11:30, (Unconfirmed) Septal infarct is now present QT has shortened Unconfirmed Result
[2019-02-20] MEDS ORDERED: TYLENOL PR PRN (01:14)
[2019-02-20 01:58] LABS: AGAP 13; BUN 15 mg/dL (8-22); CALCIUM 9.4 mg/dL (8.8-10.2); CHLORIDE 106 mmol/L (98-107); COSMO 285; CREATININE 0.8 mg/dL (0.5-0.9); ESTIMATED GFR > 60; GLUCOSE 217 mg/dL (70-104); MAGNESIUM 1.7 mg/dL (1.5-2.7); PHOSPHORUS 2.1 mg/dL (2.7-4.5); POTASSIUM 3.8 mmol/L (3.5-5.1); SODIUM 139 mmol/L (136-145); TCO2 20 mmol/L (25-35)
[2019-02-20] MEDS ORDERED: POTASSIUM CHLORIDE 20 MEQ/SWI 20 MEQ/100 ML IVPB IV ONE (02:55)
[2019-02-20] MEDS ORDERED: MAGNESIUM SULFATE 2 GM/S.W.I. 2 GM/50 ML IVPB IV ONE (02:58)
[2019-02-20 08:20] LABS: AGAP 16; BUN 13 mg/dL (8-22); CALCIUM 9.3 mg/dL (8.8-10.2); CHLORIDE 110 mmol/L (98-107); COSMO 292; CREATININE 0.8 mg/dL (0.5-0.9); ESTIMATED GFR > 60; GLUCOSE 121 mg/dL (70-104); MAGNESIUM 3.1 mg/dL (1.5-2.7); POTASSIUM 4.5 mmol/L (3.5-5.1); SODIUM 146 mmol/L (136-145); TCO2 20 mmol/L (25-35)
[2019-02-20] MEDS: TAMIFLU PO SCH ×2 (08:40→20:59)
[2019-02-20] MEDS: NS 1,000 ML IV SCH ×3 (08:40→21:00)
[2019-02-20] MEDS ORDERED: TRESIBA FLEXTOUCH U-100 SUBQ ONE (09:27)
[2019-02-20] MEDS ORDERED: INSULIN PEN NEEDLES MISC PRN (09:39)
--- NOTE | 2019-02-20 10:35 | HISTORY AND PHYSICAL ---
PRIMARY CARE PROVIDER: Luis Bueno. CHIEF COMPLAINT: High blood sugars, body aches. HISTORY OF PRESENT ILLNESS: Ms Frank is a 53-year-old female who carries a past medical history of diabetes mellitus type 1, noncompliant with frequent DKA admissions, asthma, hypertriglyceridemia and hyperlipidemia, who reported to the ED complaining of nausea, diarrhea, body aches, chills and headache as well as hyperglycemia. She reports that she has family members at home who had the flu, so she has had exposure. She was found to be in diabetic ketoacidosis. Emergency department placed her on a insulin drip at a set rate and initiated treatment for influenza with Tamiflu. This a.m. she appears to be out of DKA and has been taken off the insulin drip, placed on the sliding scale. We will initiate her on a diabetic diet. PAST MEDICAL HISTORY: 1. Diabetes mellitus type 1, noncompliance. 2. Frequent diabetic ketoacidosis admissions. 3. Hyperlipidemia. 4. Asthma. PAST SURGICAL HISTORY: 1. Appendectomy. 2. Hysterectomy. 3. Bilateral tubal ligation. SOCIAL HISTORY: No tobacco, alcohol or illicit drug use. Lives with family. FAMILY HISTORY: Mother with breast cancer, stroke, coronary artery disease and diabetes. Father diabetes and coronary artery disease. ALLERGIES: To ceftriaxone, shellfish and aspirin. HOME MEDICATIONS: 1. Albuterol nebulizer 1 inhaled q.4 to q.6 hours p.r.n. shortness of breath. 2. Tresiba Flex Touch 100 units subcutaneous daily. 3. Humalog dose subcutaneous as directed. 4. Metformin a 1000 mg p.o. b.i.d. REVIEW OF SYSTEMS: Twelve-point review of systems completely negative except for those mentioned in HPI. PHYSICAL EXAMINATION: VITAL SIGNS: Temperature is 98.3 degrees, heart rate 70, respirations 13, blood pressure 106/73, O2 is 97% on room air. GENERAL: Ms. Frank is a 53-year-old female who is sitting up in the bed, playing on her phone in no acute distress. HEENT: Atraumatic, normocephalic. PERRL. NECK: Supple, trachea midline. CARDIOVASCULAR: S1, S2 appreciated. No murmurs, gallops, or rubs noted. RESPIRATORY: Lung sounds clear bilaterally. GASTROINTESTINAL: Soft, nontender, nondistended. NEUROLOGIC: No focal deficits noted. DIAGNOSTIC DATA: EKG normal sinus rhythm with possible left atrial enlargement at 76 beats per minute. LABORATORY DATA: Initial laboratory data: White count 6, hemoglobin and hematocrit 15 and 48, platelet count 385,000. Blood gas 7.28, pCO2 26, PO2 105, bicarb 14, base excess negative 12.7. Lactate 1.7. Chemistry sodium 139, potassium 3.8, BUN 15, creatinine 0.8, blood glucose is 572. Urinalysis 3+ glucose, 2+ bacteria, negative nitrates, 3+ ketones. Toxicology screen acetone level is moderate. Flu A and B both negative. ASSESSMENT AND PLAN: 1. Diabetic ketoacidosis in a known type 1 diabetic with frequent admissions for diabetic ketoacidosis. She was admitted last night through [facility] emergency department. She was initiated on IV fluids and insulin at a set rate. She is currently out of diabetic ketoacidosis initiated on fingerstick blood sugars pattern. Sliding scale protocol and initiated on diabetic diet. 2. Nausea. Continue antiemetics. That has improved with resolution of diabetic ketoacidosis. 3. Flu exposure. We will continue with Tamiflu. The patient has been educated if she feels nauseous or has more bouts of diarrhea to stop the Tamiflu. 4. Hyperlipidemia and hypertriglyceridemia. 5. History of asthma will provide p.r.n. DuoNeb medications if needed. 6. Further recommendations to follow physician evaluation, laboratory and diagnostic data. Dictated by FLAVIA Benavides for Terell Fierro MD cc: Terell Fierro MD [facility]
--- NOTE | 2019-02-20 15:13 | HISTORY AND PHYSICAL ---
ADDENDUM: Patient seen and examined by myself. Full note dictated and discussed with nurse practitioner. Patient presented to the hospital with elevated blood sugars, nausea, vomiting. She was acetone positive in the ER, diagnosed with DKA was placed in the ICU on insulin drip. We will continue to monitor her vitals as well as her labs. Currently, she is awake, alert. She is in no respiratory distress. cc: Terell Fierro MD
[2019-02-20] MEDS: HUMULIN R (PARKWAY) SUBQ SCH ×2 (16:48→20:59)
[2019-02-21] MEDS: NS 1,000 ML IV SCH (03:53)
[2019-02-21] MEDS: HUMULIN R (PARKWAY) SUBQ SCH ×2 (06:59→14:00)
[2019-02-21] MEDS ORDERED: TRESIBA FLEXTOUCH U-100 SUBQ SCH (09:00)
[2019-02-21 13:00] VITALS: BP 124/82
[2019-02-21] MEDS: TAMIFLU PO SCH (13:42)
--- NOTE | 2019-02-21 14:16 | DISCHARGE SUMMARY ---
ADMISSION DATE: 02/19/2019 DISCHARGE DATE: 02/21/2019 PRIMARY CARE PROVIDER: Leobardo Jenkins MD. PERTINENT PROCEDURES: EKG: Normal sinus rhythm. DISCHARGE DIAGNOSES: 1. Diabetic ketoacidosis. 2. Diabetes mellitus type 1. 3. Medical noncompliance. 4. Nausea. 5. Flu exposure. 6. Hyperlipidemia. 7. Hypertriglyceridemia. 8. Asthma history without exacerbation. HOSPITAL COURSE: Briefly, Ms. Frank is a 53-year-old female with past medical history of diabetes mellitus type 1, noncompliant, with frequent DKA admissions, who reported to the ED with nausea, diarrhea, body aches, chills, and headache as well as hyperglycemia. She reported she had been around family members who had been diagnosed with the flu. Her flu workup here was negative. However, she was found to be in DKA in the ED, was initiated on a insulin drip overnight at a set rate and IV fluids, as well as initiated on Tamiflu. The next morning she was out of DKA. She was taken off her insulin drip, placed on high-dose sliding scale and was placed on a diabetic diet which she has tolerated well. She is being discharged back home today with self-care to continue her home insulin regimen as well as diabetic diet and follow up with her primary care provider. VITAL SIGNS: Temperature is 98.1 degrees, heart rate 66, respirations 16, blood pressure 110/72. O2 is 96% on room air. DISCHARGE DIET: Diabetic. DISCHARGE MEDICATIONS: 1. Albuterol nebulizer inhaled q.4 q.6 hours p.r.n. shortness of breath. 2. Glucophage 1000 mg p.o. b.i.d. 3. Humalog sliding scale subcu as directed. 4. Tresiba FlexTouch 60 units subcutaneous daily. 5. Tamiflu 75 mg p.o. b.i.d. for 3 more days. FOLLOWUP: Ms. Frank is being discharged back home with self care. She is to follow up with her primary care provider, Dr. Leobardo Jenkins, within the next 7 to 10 days, continue taking her insulin as prescribed, and follow her diabetic diet. Dictated by FLAVIA Benavides for Terell Fierro MD cc: Terell Fierro MD
== END 2019-02-21 14:00 | disposition home or self-care (01) | DRG 639 ==
LOC: P.ED 19:01 → P.ICU 23:00
PROVIDERS: ATTEND Family Medicine

== ENCOUNTER 2019-07-23 18:28 | Observation (INO) ==
[2019-07-23] MEDS ORDERED: POTASSIUM CHLORIDE 20 MEQ/SWI 20 MEQ/100 ML IVPB IV PRN ×2 (18:50)
[2019-07-23] MEDS ORDERED: MAGNESIUM SULFATE 2 GM/S.W.I. 2 GM/50 ML IVPB IV PRN (18:50)
[2019-07-23] MEDS ORDERED: NS 1,000 ML IV ONE ×3 (18:50→21:41)
[2019-07-23] MEDS ORDERED: POTASSIUM CHLORIDE 20% LIQUID PO PRN (18:50)
[2019-07-23] MEDS ORDERED: D50W SYRINGE IV PRN ×4 (18:50→22:01)
[2019-07-23] MEDS ORDERED: POTASSIUM CHLORIDE 10% LIQUID PO PRN (18:50)
[2019-07-23] MEDS ORDERED: SODIUM PHOSPHATE 30 MMOL in D5W 250 ML IV PRN (18:50)
[2019-07-23] MEDS ORDERED: SODIUM BICARBONATE 8.4% 100 MEQ in STERILE WATER INJ. 500 ML IV PRN (18:50)
[2019-07-23] MEDS ORDERED: HUMULIN R (PARKWAY) IV ONE (18:53)
[2019-07-23] MEDS ORDERED: NS 1,000 ML IV SCH (19:00)
--- NOTE | 2019-07-23 19:04 | PROVIDER DOCUMENTATION ---
HPI-General Adult - General Chief Complaint: High Blood Sugar Stated Complaint: SUGAR HIGH Time Seen by Provider: 07/23/19 18:34 Source: patient Allergies/Adverse Reactions: Patient Allergies Allergy/AdvReac Type Severity Reaction Status Date / Time ceftriaxone sodium * Allergy SHORTNESS Verified 07/23/19 18:37 [From Rocephin] OF BREATH shellfish derived Allergy ANAPHYLAXIS Verified 07/23/19 18:37 aspirin AdvReac NAUSEA Verified 07/23/19 18:37 Home Medications: Home Medication List Medication Instructions Recorded Confirmed Last Taken Type Albuterol [Albuterol Neb] 1 inh INH Q4-6H PRN PRN 02/08/19 07/23/19 Unknown History Epinephrine Auto Injector [Epipen] 0.3 mg IM DIRECTED PRN PRN 05/01/19 07/23/19 Unknown History Montelukast Sodium [Singulair] 10 mg PO HS 05/01/19 07/23/19 Unknown History - History of Present Illness -Gen Adult Nature of Presenting Problems: Patient is a 53 yof with a hx of T1DM who c/o elevated blood sugars x 2 weeks. Reports malaise/fatigue, polyuria and polydipsia. Has had some diarrhea. Denies cough, fever, n/v, abdominal pain, or any other complaints. Pt non-toxic. Review of Systems - Adult - REVIEW OF SYSTEMS - ADULT Constitutional: reports: no symptoms reported. denies: chills, fever Eyes: reports: no symptoms reported Ears, Nose, Mouth & Throat: reports: no symptoms reported Cardiovascular: reports: no symptoms reported Respiratory: reports: no symptoms reported Gastrointestinal: reports: no symptoms reported Genitourinary: reports: no symptoms reported Musculoskeletal: reports: no symptoms reported Integumentary: reports: no symptoms reported Neurological: reports: no symptoms reported Psychiatric: reports: no symptoms reported Endocrine: reports: see HPI Hematologic/Lymphatic: reports: no symptoms reported Allergic/Immunologic: reports: no symptoms reported All Other Systems: Reviewed and Negative Past History - Adult - PAST MEDICAL HISTORY-ADULT Review of Records: reports: Nursing Assessment Review, Medications Reviewed, Social history reviewed & non-contributory. Major Childhood Illnesses: reports: denies history Cardiovascular: reports: hyperlipidemia Respiratory: reports: asthma Gastrointestinal: reports: denies history Obstetrical/Gynecological: reports: denies history Genitourinary: reports: denies history Musculoskeletal: reports: chronic pain (back), neck/back injury Neurological: reports: headaches/migraines Endocrine/Immune: reports: Diabetes Diabetes Type: Type 1 Diabetes controlled by:: Insulin Dependent Other Conditions: reports: denies history, MRSA - PRIOR SURGERIES/PROCEDURES Surgical/Procedure History: reports: appendectomy, hysterectomy, BTL - IMMUNIZATION STATUS Childhood Immunizations: See Nurse Assessment Flu Vaccine: See Nurse Assessment - FAMILY HISTORY Family History: reviewed, not pertinent - SOCIAL HISTORY Smoking: non-smoker Physical Exam-General - PHYSICAL EXAM-ADULT Initial Vital Signs Reviewed: Yes - CONSTITUTIONAL General Appearance: alert, no apparent distress. negative: lethargic, slow to respond - EYES Eyes: PERRL/EOMI, pink conjunctivae - HEAD, EARS, NOSE, MOUTH & THROAT HENMT: normocephalic/atraumatic, other (dry mucous membranes) - NECK Neck: non-tender, full range of motion, supple, normal inspection - RESPIRATORY Respiratory: chest non-tender, lungs clear, normal breath sounds, no pleuratic chest pain, no respiratory distress, no accessory muscle use - CARDIOVASCULAR Cardiovascular: normal peripheral pulses, regular rate, rhythm, no gallop, no murmur - GASTROINTESTINAL (ABDOMEN) Abdominal Exam: normal bowel sounds, non tender, soft - MUSCULOSKELETAL Back Exam: normal inspection Extremity: normal range of motion, non-tender, normal gait, normal inspection - SKIN Integumentary: normal color, warm/dry. negative: cyanosis, diaphoresis, jaundice, mottled, pallor - NEUROLOGIC Neurologic: grossly normal, no motor/sensory deficits - PSYCHIATRIC Psych/Mental Status: normal mood/affect, normal thought content, normal thought process, oriented x 3 Progress - PLAN OF CARE/RESULTS Progress/Plan/Lab Results: Vital Signs - 8 hr 07/23/19 18:34 Temperature 98.3 F Pulse Rate 99 H Respiratory Rate 18 Blood Pressure 155/98 O2 Sat by Pulse Oximetry 98 Laboratory Results - last 24 hr 07/23/19 18:43 POC Glucose 500 H D Orders Category Date Time Status Cardiac Monitoring DIRECTED Care 07/23/19 18:50 Active ED: Urine Bedside NOW Care 07/23/19 18:50 Active FSBS/Accucheck Result Q15M Care 07/23/19 18:51 Active FSBS/Accucheck Result Q1H Care 07/23/19 18:50 Active Hypoglycemia/FSBS <50 or Range of 50-70 PRN Care 07/23/19 18:51 Active Notify Physician ORDERED Care 07/23/19 18:51 Active Saline Loc DIRECTED Care 07/23/19 18:51 Active Saline Loc NOW Care 07/23/19 18:50 Active Vital Signs Order Q1H Care 07/23/19 18:50 Active ABG [RESP] Routine Lab 07/23/19 18:53 Ordered ACETONE SERUM [CHEM] Stat Lab 07/23/19 18:50 Uncollected CBC WITH NO DIFF [HEME] Stat Lab 07/23/19 18:50 Uncollected CK PROFILE [SP CHEM] Stat Lab 07/23/19 18:50 Uncollected COMPREHENSIVE METABOLIC PANEL [CHEM] Stat Lab 07/23/19 18:50 Uncollected LACTATE, PLASMA [CHEM] Stat Lab 07/23/19 18:50 Uncollected MAGNESIUM [CHEM] Stat Lab 07/23/19 18:50 Uncollected PHOSPHORUS [CHEM] Stat Lab 07/23/19 18:50 Uncollected POTASSIUM [CHEM] Timed Lab 07/23/19 18:50 Uncollected TROPONIN T HIGH SENSITIVITY Stat Lab 07/23/19 18:50 Uncollected URINALYSIS [URINALYSIS] Stat Lab 07/23/19 18:50 Uncollected URINE DRUG SCREEN PL Stat Lab 07/23/19 18:50 Uncollected URINE DRUG SCREEN Stat Lab 07/23/19 18:50 Uncollected 0.9% Sodium Chloride Inj [Ns] 1,000 ml Med 07/23/19 19:00 Ordered IV 500 mls/hr 0.9% Sodium Chloride Inj [Ns] 1,000 ml Med 07/23/19 18:50 Active IV 999 mls/hr 0.9% Sodium Chloride Inj [Ns] 1,000 ml Med 07/23/19 18:53 Active IV 999 mls/hr Dextrose 50% Syringe [D50w Syringe] Med 07/23/19 18:50 Ordered 25 ml IV PRN PRN Dextrose 50% Syringe [D50w Syringe] Med 07/23/19 18:50 Ordered 50 ml IV PRN PRN Insulin Human Regular ([place] [Humulin R ([place])] Med 07/23/19 18:53 Discontinued 10 units IV NOW ONE Magnesium Sulfate 2 gm/S.w.i. Med 07/23/19 18:50 Ordered 2 gm in 50 ml IV ONCE PRN Potassium Chloride 10% Liquid Med 07/23/19 18:50 Ordered 20 meq PO ONCE PRN PRN Potassium Chloride 20 Meq/Swi Med 07/23/19 18:50 Ordered 20 meq in 100 ml IV ONCE PRN Potassium Chloride 20 Meq/Swi Med 07/23/19 18:50 Ordered 20 meq in 100 ml IV ONCE PRN Potassium Chloride 20% Liquid Med 07/23/19 18:50 Ordered 40 meq PO ONCE PRN PRN Sodium Bicarbonate 8.4% 100 meq Med 07/23/19 18:50 Ordered Water, Sterile Inj [Sterile Water Inj] 500 ml IV ONCE PRN Sodium Phosphate 30 mmol Med 07/23/19 18:50 Ordered Dextrose 5%-Water Inj [D5w] 250 ml IV ONCE PRN Hypoglycemia Stat Oth 07/23/19 18:50 Ordered EKG [EKG] Routine Ther 07/23/19 18:50 Ordered Result Diagrams: 07/23/19 18:55 07/23/19 18:55 - REASSESSMENT Reassessment #1 Time Reassessed: 20:46 Status: other (Pt in agreement with plan to admit. Admitting HPS at paged per request of Dr. Firero.) - XRAY 1 XRAY Study: Chest ([facility] - [address] , [address] [id number] [facility] - [address] [address] Department of Imaging Patient: LEILANI ANAYAALEXADM Date: 07/23/19#: [id number] : 1965ADM Status: REG ERAcct#: [id number] Age/Sex: 53/FRoom/Bed: Loc: P.ED Ordering Physician: Pelon Henderson Family Physician: Leobardo Jenkins DO Reason for Procedure: hyperglycemia ___ Signed CHEST-2 VIEWS - 07/23/2019 INDICATION: hyperglycemia COMPARISON: 02/08/2019 FINDINGS: There are small calcified granulomas stable from prior. The lungs are clear. Heart size is normal. No pneumothorax or pleural effusion. IMPRESSION: Negative exam. Electronically signed by Ren Melendez 07/23/2019 8:25 PM 07/23/192024 Interpreting Physician: Ren Melendez MD Dictated Date/Time: 07/23/192023 cc: Pelon Henderson; Leobardo Jenkins DO) - CONSULTS/PCP/HOSPITALIST Notification #1 *Consult/PCP/Hospitalist*: Dr. Fierro Time Discussed: 20:45 Reason/Comments: admit- hyperglycemia Consult Disposition: Admit (to [facility]) #2 Consult: Dr. Valera Time Discussed: 21:45 Reason/Comments: admission to - hyperglycemia Consult Disposition: Admit (Requests insulin drip, accepted admit.) Departure - Departure Date of Disposition Decision: 07/23/19 Time of Disposition Decision: 21:44 DIAGNOSIS: Hyperkalemia Diabetes Qualifiers: Diabetes mellitus type: type 1 Diabetes mellitus complication status: with hyperglycemia Qualified Code(s): E10.65 - Type 1 diabetes mellitus with hyperglycemia Disposition: ADMITTED INPATIENT 09 Certified Medical Emergency: Emergent Condition: Serious Referrals and Follow-Ups: Leobardo Jenkins DO [Primary Care Provider] - - Critical Care Note This patient required my direct & personal management of CC.: Yes Total Time (mins): 30 Critical Care Statement: This patient required my direct personal management to treat or rule out processes, the absence of which, could potentiallly result in sudden, clinically significant life or limb threatening deterioration. Attestation - Physician/ SHAW Attestation Patient care was provided by Advanced Practice Provider:: Yes Advanced Practice Provider:: Pelon Henderson Advanced Practice Provider documentation review:: The Mid-level provider d ocumentation, treatment plan and medical decision making was reviewed by the physician who agrees with all treatment and medical decision making by the P. The physician spent face to face time with patient:: No Advanced Practice Provider documentation review:: Supervising physician onsite and consulted in the evaluation and care of this patient. The physician did not have a face to face encounter with the patient.
[2019-07-23 19:13] LABS: BE -5.2 mmoll (-3.0-3.0); BLOOD TYPE ARTERIAL; HCO3-(ACT) 20.8 mmoll (20.0-26.0); METHB 1.7 % (0.0-1.5); O2(CT) 18.3 mL/dL (15.0-23.0); O2HB 94.1 % (95.0-99.0); PCO2(98.6) 40 mmHg (35-45); PO2(98.6) 82 mmHg (60-100); SAMPLE BLOOD; THB 13.8 g/dL (11.5-17.4); pH(98.6) 7.32 (7.35-7.45)
[2019-07-23 19:15] LABS: ALLEN TEST NO; MODALITY ROOM AIR
[2019-07-23 19:29] LABS: URINE SOURCE CLEAN CATCH
[2019-07-23 19:33] LABS: HEMATOCRIT 41.1 % (37.0-47.0); MCH 25.7 PG (27-31); MCHC 31.6 g/dL (33-37); MCV 81.2 FL (81-99); MPV 11.7 FL (7.4-10.4); RBC 5.06 XMIL (4.2-5.4); RDW 14.7 % (11.5-14.5); WBC 6.78 X1000 (4.8-10.8)
[2019-07-23 19:42] LABS: BILIRUBIN URINE NEGATIVE (NEGATIVE); BLOOD URINE NEGATIVE (NEGATIVE); COLOR STRAW; GLUCOSE URINE >1000 mg/dL (NEGATIVE); KETONE URINE 20 mg/dL (NEGATIVE); LEUKOCYTES URINE NEGATIVE (NEGATIVE); NITRITE URINE NEGATIVE (NEGATIVE); PROTEIN URINE NEGATIVE (NEGATIVE); SP GRAVITY URINE 1.032; TURBIDITY URINE CLEAR (CLEAR); UROBILINOGEN URINE NORMAL (NORMAL)
[2019-07-23 19:44] LABS: UR EPITHELIAL CELLS <10 /HPF (<10); URINE BACTERIA NEGATIVE /HPF; URINE RBC <10 /HPF (<10); URINE WBC <10 /HPF (<10)
[2019-07-23 19:48] LABS: ACETONE SERUM SMALL (NEGATIVE)
[2019-07-23 19:52] LABS: UR AMPHETAMINES QUAL NONE DETECTED (NONE DETECT); UR BARBITUATES QUAL NONE DETECTED (NONE DETECT); UR BENZODIAZEPIN QUAL NONE DETECTED (NONE DETECT); UR CANNABINOIDS QUAL NONE DETECTED (NONE DETECT); UR COCAINE QUAL NONE DETECTED (NONE DETECT); UR METHADONE QUAL NONE DETECTED (NONE DETECT); UR METHAMPHETAMINE QUAL NONE DETECTED (NONE DETECT); UR OPIATES QUAL NONE DETECTED (NONE DETECT); UR OXYCODONE QUAL NONE DETECTED (NONE DETECT); UR PCP QUAL NONE DETECTED (NONE DETECT); UR PROPOXYPHENE QUAL NONE DETECTED (NONE DETECT); UR TCA QUAL NONE DETECTED (NONE DETECT)
[2019-07-23 19:57] LABS: AGAP 21; ALBUMIN 4.7 g/dL (3.5-5.0); ALKALINE PHOSPHATASE 135 U/L (32-104); BUN 19 mg/dL (8-22); CALCIUM 10.1 mg/dL (8.8-10.2); CHLORIDE 86 mmol/L (98-107); CK PROFILE 123 U/L (24-173); COSMO 304; CREATININE 1.3 mg/dL (0.5-0.9); ESTIMATED GFR 43; GLUCOSE 1043 mg/dL (70-104); GOT 20 U/L (10-30); GPT 14 U/L (10-36); MAGNESIUM 2.1 mg/dL (1.5-2.7); PHOSPHORUS 4.1 mg/dL (2.7-4.5); POTASSIUM 5.7 mmol/L (3.5-5.1); SODIUM 125 mmol/L (136-145); TCO2 19 mmol/L (25-35); TOTAL PROTEIN 8.6 g/dL (6.3-8.3)
--- NOTE | 2019-07-23 20:28 | Diag Imaging Result Doc PS360 ---
CHEST-2 VIEWS - 07/23/2019 INDICATION: hyperglycemia COMPARISON: 02/08/2019 FINDINGS: There are small calcified granulomas stable from prior. The lungs are clear. Heart size is normal. No pneumothorax or pleural effusion. IMPRESSION: Negative exam. Electronically signed by Ren Melendez 07/23/2019 8:25 PM
[2019-07-23] MEDS ORDERED: NS 500 ML ONE (21:17)
[2019-07-23] MEDS ORDERED: HUMULIN R 100 UNIT in NS 100 ML IV SCH (22:15)
[2019-07-24] MEDS ORDERED: PHENERGAN IV PRN (02:19)
[2019-07-24] MEDS ORDERED: SODIUM CHLORIDE 0.9% INJ PRN (02:19)
[2019-07-24] MEDS ORDERED: NS 1,000 ML IV ONE (03:00)
[2019-07-24 03:03] LABS: AGAP 9; BUN 13 mg/dL (8-22); CALCIUM 9.1 mg/dL (8.8-10.2); CHLORIDE 108 mmol/L (98-107); COSMO 290; CREATININE 0.7 mg/dL (0.5-0.9); ESTIMATED GFR > 60; GLUCOSE 218 mg/dL (70-104); POTASSIUM 3.8 mmol/L (3.5-5.1); SODIUM 142 mmol/L (136-145); TCO2 25 mmol/L (25-35)
[2019-07-24] MEDS: LR 1,000 ML IV SCH ×2 (05:22→13:00)
[2019-07-24 05:24] LABS: URINE SOURCE CLEAN CATCH
[2019-07-24 05:39] LABS: BILIRUBIN URINE NEGATIVE (NEGATIVE); BLOOD URINE NEGATIVE (NEGATIVE); COLOR YELLOW; GLUCOSE URINE >1000 mg/dL (NEGATIVE); KETONE URINE NEGATIVE (NEGATIVE); LEUKOCYTES URINE SMALL (NEGATIVE); NITRITE URINE NEGATIVE (NEGATIVE); PROTEIN URINE TRACE mg/dL (NEGATIVE); TURBIDITY URINE CLEAR (CLEAR); UR EPITHELIAL CELLS <10 /HPF (<10); URINE BACTERIA NEGATIVE /HPF; URINE RBC <10 /HPF (<10); UROBILINOGEN URINE NORMAL (NORMAL)
[2019-07-24] MEDS: HUMULIN R SUBQ SCH ×4 (06:34→20:00)
[2019-07-24 06:41] LABS: HEMATOCRIT 37.5 % (37.0-47.0); HEMOGLOBIN 11.9 g/dL (12.0-16.0); MCH 25.8 PG (27-31); MCHC 31.7 g/dL (33-37); MCV 81.2 FL (81-99); MPV 10.5 FL (7.4-10.4); RBC 4.62 XMIL (4.2-5.4); RDW 14.9 % (11.5-14.5); WBC 5.55 X1000 (4.8-10.8)
--- NOTE | 2019-07-24 06:58 | HISTORY AND PHYSICAL ---
CHIEF COMPLAINT: Transferred from [facility] for uncontrolled blood glucose. HISTORY OF PRESENTING COMPLAINT: The patient is a 53-year-old female with a history of type 1 diabetes, who was transferred from [facility] when she was found to have a blood glucose of over 1000. The patient states that in the last 2 weeks she has been having issues with blood glucose control. She is on a insulin pump that directly administers insulin depending on the continuous glucose monitoring connected to the pump. She said in the last 2 weeks she has been having difficulties with her blood glucose control. Initially, she admitted her blood glucose was running on the low side in the 80s and thereafter she ate a little bit more and noted her blood glucose improved. It was running in the 300s and over time she noted a blood glucose started running above 600 and her insulin pump was recording a blood glucose above 600. She started taking boluses of subcutaneous insulin once a day over the last 2 weeks. She has been having to give herself boluses because blood glucose constantly was running above 600. Denies any nausea or vomiting. Denies any abdominal pain. Denies any fever. She endorses some diarrhea in the last week as like 3 times per day. It is nonbloody and it has occurred in the last 1 week. Denies any recent antibiotic use. Denies any change in medications. Denies any steroid use. Denies any change in her baseline. She endorse some exertional extra shortness of breath although it is difficult to ascertain whether this is new for her, it has been like her baseline. At [facility] she was noted to have a blood glucose of 1043. She was given IV insulin. The patient was transferred to the care of hospitalist service. They will admit patient. ALLERGIES: Is to shellfish, aspirin, and ceftriaxone. HOME MEDICATIONS: Is albuterol nebulizer inhaler and she also takes montelukast as well. PAST MEDICAL HISTORY: Status type 1 DM, also asthma. PAST SURGICAL HISTORY: Appendectomy, hysterectomy, and bilateral tubal ligation. SOCIAL HISTORY: Denies any history of smoking or alcohol use. FAMILY HISTORY: Mother has history of type 2 DM, father a history of CVA. Sister has a history of type 1 DM. REVIEW OF SYSTEMS: Twelve point review of systems done is negative except as stated in the HPI.Vitals: Blood pressure was 118/63, temperature 98.4 degrees, pulse is 72, O2 saturation 97% on room air. Examination: Is a pleasant, middle-aged female in no acute respiratory distress. HEENT: not pale, anicteric, acyanosed. Mildly moist oral mucosa. CV: S1, S2 heard. No murmurs, rubs, or gallops. Respiratory: Good air entry bilaterally. No wheeze. No crepitations. No added sound. Abdomen: No real tenderness. Bowel sounds normoactive. No organomegaly noted. Extremities: No bilateral pedal edema noted. Neurology: Alert, oriented x3. No gross neurological abnormality noted. Skin: No significant skin changes noted. LABS: WBC was 6.78, hemoglobin 13, hematocrit 41.1, platelets 312,000. Sodium 135, potassium 5.7, chloride 86, bicarb 19, anion gap was 21, creatinine 1.31, glucose initially was 1043, and alkaline phosphatase 135. Troponin 14, Total Protein 8.6, albumin 4.7. UA shows specific gravity 1.032, was nitrite and leukocytes negative, bacteria negative as well. Urine drug screen was negative. By the time I was seeing the patient blood glucose from insulin pump was 140 and BMP showed sodium of 142, potassium of 3.8, chloride 108, bicarb 25, anion gap was 9 and gap closed. Creatinine was now 2.7, glucose was 215. Serum acetone level was small was noted with initial pH of 7.32, pCO2 40, PO2 82. ASSESSMENT AND PLAN: Is a 53-year-old with history of type 1 DM on insulin pump, allergies, asthma who presents with difficult to treat elevated blood glucose of a 1000. The patient describes some diarrhea a week prior to presentation and difficult blood glucose control using insulin pump. acute diagnosis mild DKA. enteritis. Chronic diagnosis type 1 DM on insulin pump, asthma allergies. PLAN: Mild DKA. The patient presented with features of a mild DKA. She had an elevated anion gap of 25, although acidosis was 9, which is borderline for full blown DKA we expect bicarb to be less than 18. Patient improved significantly with IV insulin that was given promptly and with the pump still running likely giving adequate insulin infusion to provide adequate blood glucose control. I suspect that because her blood glucose was not well controlled, and would run above 600 and the pump was not giving adequate coverage for BG over 600. Likely the pump was delivering insulin required for blood glucose of 600, glucose may have been running in the thousands and as such worsened blood glucose control over time. Patient has no focus of infection, although describes diarrhea only but no area of tenderness of abdomen on my examination. Will do stool studies with stool, ova and parasites, 2 WBCs, stool culture. We will hold off on C. diff at this time as patient has no leukocytosis. No history of any recent antibiotic use. We will continue hydrating patient with LR and I expect adequate blood glucose control with this. The patient states she already contacted the insulin pump company to ascertain insulin pump was working adequately and they confirmed on their end that the pump was working adequately. The patient appears motivated and knowledgeable about the use of an insulin pump and suspect that she will continue doing okay with type 1 DM management. 2. Enteritis - we will do stool workup for stool, ova and parasites, 2 WBCs, 2 stool cultures. This appears to be chronic diarrhea as she has been having that for 1 week and very unlikely this would be an infectious cause but this may be contributory to her poor blood glucose control. Holding off antibiotic at this time as there does not appear to be any focus of infection. This may just be viral enteritis and expect this to resolve with time 3. asthma,/allergies - we will continue home albuterol p.r.n. using montelukast. DVT prophylaxis Lovenox. CODE STATUS: Full code. DISPOSITION: We will admit patient as observation. The patient's glucose is very well controlled with insulin pump and the IV insulin given. I will discharge when medically stable. [facility]
[2019-07-24 07:16] LABS: AGAP 9; BUN 13 mg/dL (8-22); CALCIUM 9.5 mg/dL (8.8-10.2); CHLORIDE 109 mmol/L (98-107); COSMO 285; CREATININE 0.7 mg/dL (0.5-0.9); ESTIMATED GFR > 60; GLUCOSE 100 mg/dL (70-104); MAGNESIUM 1.9 mg/dL (1.5-2.7); POTASSIUM 3.7 mmol/L (3.5-5.1); SODIUM 143 mmol/L (136-145); TCO2 25 mmol/L (25-35)
[2019-07-24] MEDS: ALBUTEROL NEB INH PRN ×2 (09:24→15:30)
[2019-07-24] MEDS ORDERED: LOVENOX SUBQ SCH (11:30)
[2019-07-24 11:51] LABS: HEMOGLOBIN A1C 12.2 % (4.8-6.0)
--- NOTE | 2019-07-24 12:53 | PROGRESS NOTE ---
DATE: 07/24/2019 SUBJECTIVE: I have seen and examined Ms. Frank today. Ms. Frank refers to be doing a lot better, feeling a little stronger, but still weak. No nausea and no vomiting. She was tolerating her diet. OBJECTIVE: Vital Signs: Blood pressure is 125/76, pulse of 71, respirations are 16, temperature is 98.5 degrees. The patient is saturating 100% on room air. General: Ms. Frank is a 53-year- old female. She is in bed in no distress. HEENT: Mucosa is pink and moist. Anicteric. Acyanotic. Neck: Supple. Chest: Clear to auscultation. No crepitations. No rhonchi. Cardiovascular: Regular rate and rhythm. There is no murmurs, no rubs, no gallops. Gastrointestinal: Abdomen is soft. Extremities: No pedal edema. 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 The patient has an insulin pump on the abdominal wall and a sensor on the left arm laterally. LABORATORY DATA: Has been reviewed. Chemistry is now completely normal. The patient's A1c is 12.2. ASSESSMENT: 1. Mild DKA on presentation, resolved. The patient is back to her insulin pump. 2. Enteritis, resolved. 3. History of asthma/allergic rhinitis. 4. Clinical volume depletion, improved. 5. Acute kidney injury secondary to volume depletion, resolved. PLAN: So in general I think Ms. Frank is doing well. She denies any more vomiting. She is feeling stronger. We are going to continue with the IV fluids and continue using her pump to ensure that it is functioning right before she gets discharged hopefully tomorrow. Ms. Frank normally follows up with Dr. Wu Grant, buncher machine in [place], and her primary care doctor is Dr. Jenkins. cc: Sachin De La Torre MD
[2019-07-24] MEDS ORDERED: SINGULAIR PO SCH (21:00)
[2019-07-25] MEDS: LR 1,000 ML IV SCH ×2 (00:12→09:59)
[2019-07-25 06:46] LABS: BASO# 0.01 X1000 (0.0-0.2); BASO% 0.2 % (0.0-0.8); EOS# 0.11 X1000 (0.0-0.7); EOS% 2.7 % (0.0-10.0); HEMATOCRIT 37.3 % (37.0-47.0); HEMOGLOBIN 11.4 g/dL (12.0-16.0); LYMPH# 1.69 X1000 (1.2-3.4); LYMPH% 41.5 % (20.5-51.1); MCH 25.1 PG (27-31); MCHC 30.6 g/dL (33-37); MONO# 0.34 X1000 (0.11-0.59); MONO% 8.4 % (1.7-9.3); MPV 10.9 FL (7.4-10.4); NEUT# 1.92 X1000 (1.4-6.5); NEUT% 47.2 % (42.2-75.2); PLT 237 X1000 (130-400); RBC 4.55 XMIL (4.2-5.4); RDW 14.9 % (11.5-14.5); WBC 4.07 X1000 (4.8-10.8)
[2019-07-25 07:03] LABS: AGAP 7; ALBUMIN 3.4 g/dL (3.5-5.0); BUN 9 mg/dL (8-22); CALCIUM 9.4 mg/dL (8.8-10.2); CHLORIDE 101 mmol/L (98-107); COSMO 274; CREATININE 0.6 mg/dL (0.5-0.9); ESTIMATED GFR > 60; GLUCOSE 185 mg/dL (70-104); PHOSPHORUS 2.4 mg/dL (2.7-4.5); POTASSIUM 3.8 mmol/L (3.5-5.1); SODIUM 135 mmol/L (136-145); TCO2 27 mmol/L (25-35)
[2019-07-25] MEDS: HUMULIN R SUBQ SCH (07:07)
[2019-07-25 07:47] VITALS: BP 137/79
--- NOTE | 2019-07-25 16:05 | DISCHARGE SUMMARY ---
ADMISSION DATE: 07/23/2019 DISCHARGE DATE: 07/25/2019 I have seen and examined Ms. Frank today. DISPOSITION: Home. FOLLOWUP: 1. Dr. Jenkins. 2. Dr. Love, the metal hanging supervisor in [place]. CONSULTATION: None. IMAGING STUDIES OF SIGNIFICANCE: A chest x-ray was negative. Microbiology data, urine culture showed no pathogen growth. ADMISSION DIAGNOSIS: 1. Mild diabetic ketoacidosis. 2. Enteritis. 3. Asthma/allergies. DIAGNOSIS AT THE TIME OF DISCHARGE: 1. Mild diabetic ketoacidosis on presentation resolved. 2. Diabetes mellitus insulin dependent. 3.Enteritis resolved. 4. History of asthma/allergy rhinitis. 5. Acute kidney injury secondary to volume depletion resolved. DISCHARGE MEDICATIONS: 1. Albuterol inhalers. 2. Singulair 10 mg p.o. at bedtime. 3. Insulin pump. PRESENTING COMPLAINT: Was uncontrolled diabetes. HISTORY OF PRESENTING COMPLAINT: Ms Frank 53-year-old female known to be diabetic insulin dependent, was transferred from [place] to [facility] for higher level of care. Ms. Frank presented because she was having some nausea and vomiting, diarrhea, was found to have a glucose level over 1000 and was in mild DKA, she was transferred over here. Ms Frank was admitted to the step-down unit, was started on IV fluids, DKA protocol. Her acid- base disturbances all got improved. She was started back on her pump. She was also started on regular diet which she tolerated well. During the short course of her hospital stay all her metabolic derangement got resolved. She has been tolerating her pump. Her glucose have been under normal ranges. Her A1c however was 12.2. She has been advised to follow up with Dr. Love who is her metal hanging supervisor to review the settings on her pump and make changes accordingly. This morning Ms Frank refers to be doing well. Her vitals are all stable, blood pressure is 137/79, pulse of 64, respiration is 17, temperature is 98.1 degrees. I think Ms. Frank is in stable condition to be discharged to continue followup with her outside outpatient providers. TIME SPENT: 35 minutes. cc: Sachin De La Torre MD [facility]ITALYesica
== END 2019-07-25 11:38 | disposition home or self-care (01) ==
LOC: P.ED 18:28 → INTOOBSV 18:29 → SUATTDRO 18:29 → 2N 23:53
PROVIDERS: ATTEND Internal Medicine